=== PATIENT | female | born 1970 | race Caucasian/White ===

== ENCOUNTER 2016-12-04 09:43 | Emergency (ER) | payer BC, MEDICARE ==
[~2016-12-04] VITALS: Ht 157.4 cm; Wt 122.5 kg
[2016-12-04 09:43] VITALS: BP 146/72
[~2016-12-04 09:43] MED LIST: ADVAIR 500/501 E1 INH; AMBIEN10 MG PO; AMOXICILLIN500 MG PO; AMOXIL250 MG/5 M PO; ANTIVERT25 MG PO; ATARAX25 MG PO; ATIVAN0.5 MG PO; ATIVAN1 MG PO; AUGMENTIN 875875 MG PO; BACTRIM DS 8001 TA1 PO; BACTROBAN OINT0.9 GM NAS; BACTROBAN OINT0.9 GM PO; BACTROBAN2% TP; BREO ELLIPTA 21 EACH IH; BROMALINE DM PO; Bactroban Oint22 GM T; CALCIUM 600600 M2 PO; CALTRATE 600600 MG PO; CARAFATE1 GM PO; CARDIZEM CD180 MG PO; CEFADROXIL500 M1 PO; CEFTIN250 MG PO; CEFTRIAXONE1 GM IJ; CHLORASEPTIC PO; CIPRO250 MG PO; CIPRO500 MG PO; CLARITIN10 MG PO; CLINDAMYCIN HC300 MG PO; COMBIGAN 0.2%-0.5 ML OP; CORDROL20 MG PO; COUMADIN4 MG PO; COUMADIN5 M1 PO; COUMADIN7.5 M1 PO; Coumadin3 MG PO; DALI500T PO; DALIRESP500 MC1 PO; DARVOCET N 1001 TAB PO; DELTASONE1 MG PO; DELTASONE20 MG PO; DELTASONE5 MG PO; DELTASONE50 MG PO; DIFLUCAN150 MG PO; DIGITEK0.25 MG PO; DILTIAZEM 24HR120 MG PO; DILTIAZEM CD240 MG PO; DILTIAZEM ER120 MG PO; DOXYCYCLINE HY100 M5 PO; DOXYCYCLINE MO100 MG PO; DOXYCYCLINE100 MG PO; DOXYCYCLINE40 MG PO; DUONEB 3 MG/3 ML3 M1; DUONEB 3 MG/3 ML3 M1 NEB; DUREZOL 5 ML5 ML OP; Duoneb 3ML 3 MG/3 ML INH; FIORICET 325 MG1 TAB PO; Fioricet 325 MG1 TAB PO; GABAPENTIN300 MG PO; HUMULIN 70/30 703 M1 SC; HYDROCODONE BIT1 T11 PO; HYOMAX-SL0.125 MG PO; IBU-8800 MG PO; INVOKANA100 M1 PO; JANUVIA100 MG PO; JANUVIA50 MG PO; K-DUR 2020 MEQ PO; K-Dur 20MEQ20 MEQ PO; KEFLEX500 MG PO; KEFZOL1 GM IM; LANTUS100 U/ML SC; LASIX40 MG PO; LATANOPROST2.5 ML OP; LEVAQUIN LEVA-750 MG PO; LEVAQUIN500 M1 PO; LEVAQUIN500 M2 PO; LEVAQUIN750 M1 PO; LEVAQUIN750 MG PO; LEVEMIR10 ML SC; LEVEMIR100 U/ML SC; LEVOFLOXACIN500 MG PO; LISINOPRIL10 MG PO; LISINOPRIL40 MG PO; LUMIGAN 2.5 ML2.5 ML OPH; LYRICA100 M1 PO; MELATONIN5 M2 PO; Mycostatin Powd15 GM; NEURONTIN300 MG PO; NEURONTIN600 MG PO; NOVOLIN R100 U/ML IJ; NOVOLIN R100 U/ML SC; OXYGEN INH; PAROXETINE HCL10 MG PO; PAXIL30 M1 PO; PAXIL30 M2 PO; PEPCID40 MG PO; PERCOCET 325 MG1 TA2 PO; PERCOCET 325 MG1 TA3 PO; PERCOCET 325 MG1 TA5 PO; PERCOCET 325 MG1 TA6 PO; PERCOCET 325 MG1 TA7 PO; PERCOGESIC EXTR1 TAB PO; PHENERGAN W/ DE30 ML PO; PHENERGAN W/DM120 ML PO; PRANDIN1 MG PO; PREDNICOT20 MG PO; PREDNISONE10 M1 PO; PREDNISONE10 MG PO; PREDNISONE20 M1 PO; PRILOSEC20 M1 PO; PROAIR HFA0.09 MG/AC; PROAIR HFA0.09 MG/AC INH; PROAIR HFA8.5 GM INH; PROTONIX40 MG PO; Percocet 325 MG1 TAB PO; Phenergan25 MG PO; SINGULAIR10 MG PO; SPIRIVA 5 CAPS18 MCG INH; SPIRIVA18 MCG PO; TOBREX OPHTH S2.5 ML OPH; VANCO 1 GR1 GM/250 M IV; VANCO 1.51.5 GM/250 IV; VANCO IV; VANCOCIN H250 MG/5 M PO; VENTOLIN H0.09 MG/AC INH; VENTOLIN0.09 MG/AC INH; VIBRAMYCIN100 MG PO; VICODIN 5/500 505 MG PO; VICODIN ES 7501 TA1 PO; XANAX0.25 MG PO; XANAX0.5 MG PO; XOPENEX1.25 MG/3 IH; ZANTAC 150150 MG PO; ZITHROMAX Z PA250 MG PO; ZITHROMAX250 MG PO; ZITHROMAX500 MG PO; ZOFRAN ODT4 MG SL; ZOFRAN8 M1 PO; ZYVOX600 MG PO
[2016-12-04 10:26] LABS: BASO % 0.2 % (0.0-1.0); EOS % 0.2 % (1.0-4.0); HEMATOCRIT 34.7 % (37.0-47.0); HEMOGLOBIN 10.3 g/dl (12.0-16.0); IG # 0.1 10*3/uL (0.0-0.1); LYMPH # 1.6 10*3/uL (1.3-4.4); LYMPH % 19.1 % (27.0-41.0); MEAN CELL VOLUME 91.6 fl (81.0-99.0); MEAN CORPUSCULAR HGB 27.2 pg (27.0-31.0); MEAN CORPUSCULAR HGB CONC 29.7 g/dl (33.0-37.0); MEAN PLATELET VOLUME 9.8 fl (9.6-12.3); MONO # 0.3 10*3/uL (0.1-1.0); MONO % 3.8 % (3.0-9.0); NEUT # 6.4 10*3/uL (2.3-7.9); NEUT % 75.3 % (47.0-73.0); PLATELET COUNT AUTOMATED 311 10*3/uL (130-400); RED BLOOD COUNT 3.79 10*6/uL (4.10-5.10); RED CELL DISTRI WIDTH 14.8 % (0-14.5); WHITE BLOOD COUNT 8.5 10*3/uL (4.8-10.8)
[2016-12-04 10:39] LABS: ALBUMIN 3.2 gm/dl (3.1-4.5); ALKALINE PHOSPHATASE 72 U/L (45-117); BILIRUBIN, TOTAL 0.2 mg/dl (0.2-1.0); BUN 21 mg/dl (7-24); CARBON DIOXIDE 32 mmol/L (21-32); CHLORIDE 102 mmol/L (98-107); EST GLOM FILT AFRICAN AMERICAN > 60 ml/min; GLUCOSE 165 mg/dL (65-99); POTASSIUM 4.3 mmol/L (3.5-5.1); SGOT/AST 8 IU/L (3-35); SGPT/ALT 15 U/L (12-78); SODIUM 143 mmol/L (136-145); TOTAL PROTEIN 6.9 gm/dL (6.4-8.2)
== END 2016-12-04 13:46 | disposition other institution (70) ==
LOC: ED 09:43
PROVIDERS: Registered Nurse
DX: S20.212A Contusion of left front wall of thorax, initial encounter (principal); F32.9 Major depressive disorder, single episode, unspecified; M19.90 Unspecified osteoarthritis, unspecified site; E11.9 Type 2 diabetes mellitus without complications; J45.909 Unspecified asthma, uncomplicated; N17.9 Acute kidney failure, unspecified; Z88.1 Allergy status to other antibiotic agents; Z88.2 Allergy status to sulfonamides; Z88.8 Allergy status to other drugs, medicaments and biological substances; Z79.899 Other long term (current) drug therapy; W18.30XA Fall on same level, unspecified, initial encounter; Y93.89 Activity, other specified; Y92.89 Other specified places as the place of occurrence of the external cause; Y99.9 Unspecified external cause status

== ENCOUNTER 2017-02-04 19:21 | Inpatient (IN) | payer BC, MEDICARE ==
[~2017-02-04] VITALS: Ht 157.5 cm; Wt 115.3 kg
--- NOTE | ~2017-02-04 | PR ---
[place], [place] PROGRESS NOTE NAME: TOD HERNANDEZ UNIT #: [id number] ROOM: 523 DOCTOR: RONI BURTON MD,JESSICA BIRTHDATE: [birth year] DOS: 02/14/2017 SUBJECTIVE: The patient has been noted comfortable at this time without any distress. There were no symptoms of cough, sputum expectoration, chest pain described. There were symptoms of abdominal pain. OBJECTIVE: VITAL SIGNS: The patient which has been recorded showed the temperature of the patient noted as normal, respiratory rate 20, heart rate 70, blood pressure 135/67. HEENT: No acute change. NECK: Supple. CARDIOVASCULAR: S1, S2 audible. LUNGS: Noted without any wheeze or crackles. ABDOMEN: Soft, nontender, and obese. EXTREMITIES: No edema. IMPRESSION: 1. Resolving small pleural fluid. The patient at this time associated with acute bacterial pneumonia. 2. Stable chronic hypoxic respiratory failure. 3. Obstructive sleep apnea disorder. 4. Type 2 diabetes mellitus. 5. History of bronchial asthma with steroid dependency. PLAN OF TREATMENT: No changes from the pulmonary standpoint, the patient could be considered for home discharge on oral medications if desired by the primary care attending from the pulmonary standpoint. In the meantime, continue other previous therapy, plan of management. Upon discharge, the patient recommended for outpatient followup in 2 weeks in the office. JESSICA TAMAYO MD CM:PNTRANS [phone] JESSICA BURTON MD 02/14/17 1130 interface
--- NOTE | ~2017-02-04 | PR ---
[place], [place] PROGRESS NOTE NAME: TOD HERNANDEZ UNIT #: [id number] ROOM: 523 DOCTOR: RONI BURTON MD,JESSICA BIRTHDATE: [birth year] DOS: 02/13/2017 SUBJECTIVE: She has been noted comfortable with signs of chest pain without any acute shortness of breath. There were symptoms of coughing, chest pain. Abdominal pain was noted. OBJECTIVE: VITAL SIGNS: Show normal temperature, respiratory rate 20, heart rate 75, blood pressure 95/50-111/56. Pulse oxygen saturation noted on 3 liters canula 96% saturation. HEENT: Shows no acute change. NECK: Supple. CARDIOVASCULAR: S1, S2 audible. LUNGS: Without any wheezing or crackles at the present time. Breaths are noted, mildly decreased bilaterally. ABDOMEN: Soft, nontender. LABORATORY DATA: CBC shows WBC count 10.3, hemoglobin 9.8, hematocrit 33, platelet count of 332. The patient has a chest x-ray repeated today which shows improvement in the pleural fluid and aeration of the right lower lobe. The pleural fluid noted very small. IMPRESSION: 1. Resolving acute pneumonia and associated pleural fluid. Current medical management. 2. Hypercapnic and hypoxic respiratory failure. 3. Type 2 diabetes mellitus. PLAN OF TREATMENT: Possible discharge in the morning. Continue the previous treatment, plan of management, usual care. JESSICA TAMAYO MD CM:PNTRANS [phone] JESSICA BURTON MD 02/13/17 1340 interface
--- NOTE | ~2017-02-04 | PR ---
[place], [place] PROGRESS NOTE NAME: TOD HERNANDEZ UNIT #: [id number] ROOM: 523 DOCTOR: RONI BURTON MD,JESSICA BIRTHDATE: [birth year] DOS: 02/10/2017 SUBJECTIVE: She has been comfortably resting free of any pain. Shortness of breath has been improving for the patient progressively. Denies symptoms of chest pain or any abdominal pain. OBJECTIVE: VITAL SIGNS: For the patient which has been recorded showed the temperature of the patient noted as normal. Respiratory rate of the patient recorded as 20, heart rate 66, blood pressure 130/78. Oxygen saturation of the patient recorded on current supplementation of oxygen 3 liters is 93% saturation. HEENT: Examination shows head was atraumatic. Eyes, no icterus. NECK: Supple. CARDIOVASCULAR: S1, S2 audible. LUNGS: The patient noted without any wheeze or crackles at this time. ABDOMEN: Soft, obese, nontender. LABORATORY DATA: CBC of the patient this morning shows hemoglobin 9.1, hematocrit 31.3. CBC was normal. IMPRESSION: 1. The patient was noted with acute pneumonia in the right lower lobe, treated for gram-positive organism. The patient at this time appeared to be responding to treatment effectively. 2. The patient with chronic hypoxic respiratory failure. 3. Obstructive sleep apnea disorder. PLAN OF TREATMENT: Continue current antibiotics, bronchodilators and management of the uncontrolled diabetes mellitus. Other supportive therapy, plan of management and care. Usual treatment. Further treatment changes will be done based on the progression of the illness. JESSICA TAMAYO MD CM:PNTRANS [phone] JESSICA BURTON MD 02/11/17 0230 interface
--- NOTE | ~2017-02-04 | PR ---
[place], [place] PROGRESS NOTE NAME: TOD HERNANDEZ UNIT #: [id number] ROOM: 523 DOCTOR: JESSICA GOLDBERG MD BIRTHDATE: [birth year] DOS: 02/09/2017 SUBJECTIVE: She has been comfortably resting on the bed, using the BiPAP at this time. The chest pain continued, resolved. Shortness of breath is also improving. The cough has been noted mild for this patient as well. There were no symptoms of abdominal pain. OBJECTIVE: VITAL SIGNS: For the patient, which has been recorded showed the temperature noted as normal, respiratory rate 20, heart rate 75, blood pressure 113/55. Pulse oxygen saturation of the patient recorded on room air as 95% saturation. HEENT: Showed no new change. NECK: Supple. CARDIOVASCULAR: S1, S2 audible. LUNGS: The patient was noted without any wheezing or crackles. ABDOMEN: Noted with chronic obesity. EXTREMITIES: Shows chronic obesity as well. LABORATORY DATA: The chest x-ray, PA and lateral view that was done yesterday, shows resolving pulmonary infiltration with a small right pleural fluid was noted. IMPRESSION: 1. The patient with resolving acute bacterial pneumonia with current medical treatment at this time. 2. Stable bronchial asthma of the patient, uncomplicated, severe, persistent. 3. History of obstructive sleep apnea disorder as well. 4. History of morbid obesity. 5. Type 2 diabetes mellitus. PLAN OF TREATMENT: Continue the current medical management with the patient including the antibiotics. Possible discharge home consideration over the weekend for the patient based on the further clinical improvement in the respiratory status. Usual care, other supportive plan of management. [place], [place] PROGRESS NOTE NAME: TOD HERNANDEZ UNIT #: [id number] ROOM: 523 DOCTOR: JESSICA GOLDBERG MD BIRTHDATE: [birth year] JESSICA TAMAYO MD CM:PNTRANS [phone] JESSICA BURTON MD 02/10/17 0023 interface
--- NOTE | ~2017-02-04 | PR ---
[place], [place] PROGRESS NOTE NAME: TOD HERNANDEZ UNIT #: [id number] ROOM: 523 DOCTOR: FRANCO CAPUTO MD BIRTHDATE: [birth year] DOS: 02/07/2017 SUBJECTIVE: The patient is not having any complaints, but she feels that she is unable to take a deep breath. OBJECTIVE: VITAL SIGNS: Graphic trend shows a pressure of ____/56, pulse of 85, respirations 16, temperature 97.7. LUNGS: Diminished breath sounds. No wheezes, rales or rhonchi heard today. HEART: Regular. ABDOMEN: Obese. EXTREMITIES: Without any edema. LABORATORY DATA: White cell count is 11.3, hemoglobin 9.5, hematocrit 31.2, platelets 234. BMP: Glucose 102, BUN 33, creatinine 3.02, sodium 139, potassium 4.5, chloride 103, bicarbonate 26. Troponin was 0.68 yesterday, has come down to ____. ASSESSMENT AND PLAN: 1. Acute kidney injury, possibly ATN from contrast dye that she received for a CTA admission. IV fluids will be started. Nephrotoxic meds to be discontinued. Ultrasound of the kidneys has been ordered and a consultation with Dr. Thacker was obtained. 2. High-grade fever with sepsis. Lactic acid seems to have resolved. Blood cultures so far are not available yet, showing preliminary no bacterial growth. Urine culture is pending. The patient is on IV vancomycin, which has been discontinued because of the rising creatinine and Cipro dosage will be readjusted. 3. Type 2 diabetes mellitus, insulin dependent. Blood sugars not too bad, it is 122 this morning. 4. Troponin elevation with complaints of right-sided chest pain. It is most likely from the acute kidney injury. I reassured the patient. Dr. Vera is already seeing the patient. Echocardiogram showed no pathology. 5. Possible bibasilar atelectasis, possible pneumonia, on IV antibiotics, which are being continued. [place], [place] PROGRESS NOTE NAME: TOD HERNANDEZ UNIT #: [id number] ROOM: 523 DOCTOR: FRANCO CAPUTO MD BIRTHDATE: [birth year] FRANCO CAPUTO MD CM:PNKESHA 1 [phone] FRANCO CAPUTO MD 02/07/171958 interface
--- NOTE | ~2017-02-04 | WRIGHTHP ---
[place], [place] PATIENT HISTORY AND PHYSICAL EXAM NAME: TOD HERNANDEZ [facility] #: [id number] UNIT #: [id number] ROOM: 523 DOCTOR: FRANCO CAPUTO MD BIRTHDATE: [birth year] DOS: 02/05/2017 HISTORY OF PRESENT ILLNESS: The patient is 46 years old, seen in the Emergency Room. She was woken up during the night with complaints of severe pain in the right side of the chest. Pain is mostly when she takes a deep breath, also when she moves around in bed. She had a hard time even getting up out of bed to be examined. She denied having any left-sided chest pain or radiation of pain in the neck or jaw. She denies having any fever or chills, abdominal pain, nausea, but continued to have a lot of chronic pain all over her body. PAST MEDICAL HISTORY: Significant for: 1. Last hospitalization in 11/2012 with osteomyelitis. She was at [facility] for close to a month. She received IV vancomycin and the wound has completely healed and vancomycin was discontinued. 2. 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 3. Type 2 diabetes mellitus, insulin-dependent, poorly controlled. 4. Chronic pain. 5. Morbid obesity. 6. Adult failure to thrive. 7. Pancreatic cyst. 8. Generalized anxiety disorder. 9. Chronic osteomyelitis of the toe, status post amputation of the first toe of the left foot. MEDICATIONS: She is on insulin pump, Ventolin 2 puffs q.6h., oxygen 2 liters, breathing treatments, Latanoprost eyedrops, Xanax 0.5 b.i.d., Fioricet 1 tablet t.i.d., calcium carbonate 600 b.i.d., Diltiazem 240 daily, Pepcid 40 daily, lisinopril 40 daily, Singulair 10 daily, Percocet 7.5 q. 6, Paxil 30 daily, prednisone 30 daily, Lyrica 100 b.i.d., Prandin 1 mg t.i.d., Daliresp 500 mcg daily. SOCIAL HISTORY: Nonsmoker, does not use any alcohol. PHYSICAL EXAMINATION: GENERAL: The patient was in quite a lot of pain and was very difficult even get her up to be examined on the gurney in the ER. VITAL SIGNS: Blood pressure is 145/92, pulse of 100, respirations 18, afebrile. HEENT: Within normal limits. LUNGS: Diminished breath sounds. Fairly clear. HEART: Regular. ABDOMEN: Obese, multiple tender points all over back. EXTREMITIES: Without any edema, previously seen wound on the left leg. Left foot is completely healed. LABORATORY DATA: At the time of admission, WBC count is 15.2, hemoglobin 11.6, hematocrit 39.3, platelets 313. Lactic acid 3.1. Chest x-ray unremarkable. Blood gas 7.4, pCO2 of 43, pO2 154. BMP: Glucose 59, BUN 11, creatinine 1.07, sodium 144, potassium 3.4, chloride 105, bicarbonate 29. CTA of the chest shows no pathology except some minimal, no evidence of any PE, basilar atelectasis. [place], [place] PATIENT HISTORY AND PHYSICAL EXAM NAME: TOD HERNANDEZ UNIT #: [id number] ROOM: 523 DOCTOR: FRANCO CAPUTO MD BIRTHDATE: [birth year] ASSESSMENT AND PLAN: A 46-year-old with: 1. Right-sided chest pain, which appears to be pleuritic in nature, could be from a small underlying pneumonia versus pleurisy. Dr. Juarez will be consulted. The patient will have a rule out CT protocol ordered. She has significant risk factors for underlying heart disease. Echocardiogram and a consultation with Dr. Vera also obtained. 2. End-stage chronic obstructive pulmonary disease, oxygen dependent without any evidence of exacerbation. She does not have any bronchospasm. We will discontinue Singulair and continue the Daliresp. She is on chronic prednisone, which is also continued. 3. Type 2 diabetes mellitus, insulin-dependent. Blood sugars to be checked and covered. FRANCO CAPUTO MD CM:HISPHYS:PATIENT HISTORY AND PHYSICAL EXAMINATION 07 FRANCO CAPUTO MD 02/06/17 0710 interface
--- NOTE | ~2017-02-04 | PR ---
[place], [place] PROGRESS NOTE NAME: TOD HERNANDEZ UNIT #: [id number] ROOM: 523 DOCTOR: MARYCARMEN LOPEZ MD BIRTHDATE: [birth year] DOS: 02/08/2017 GENERAL APPEARANCE: The patient is alert and oriented x 3, in no visible distress. VITAL SIGNS: Blood pressure 120/63; heart rate of 82 beats per minute, beating normally; afebrile. HEENT AND NECK: Exam within normal limits. CARDIOVASCULAR SYSTEM: Heart rate is regular in rate and rhythm. S1 and S2 normally audible. LUNGS: Decreased breath sounds on lung auscultation. ABDOMEN: Obesity. Soft, nontender. No obvious organomegaly. Bowel sounds are present. EXTREMITIES: Without significant cyanosis or edema. IMPRESSION: 1. The patient with right-sided pleuritic chest pains, resolved with treatment of infection and pneumonia. 2. The patient seen by Cardiology. No further workup recommended. 3. Morbid obesity. 4. Advanced COPD with chronic respiratory failure and oxygen dependence. 5. Diabetes mellitus. Blood sugars being monitored. 6. Acute kidney disease. BUN and creatinine at 32 and 2.1. 7. High-grade fever and sepsis apparently related to pneumonia as a result of treatment of antibiotics. MARYCARMEN LOPEZ MD CM:PNTRANS [phone] MARYCARMEN LOPEZ MD 02/09/17 0152 interface
--- NOTE | ~2017-02-04 | PR ---
[place], [place] PROGRESS NOTE NAME: TOD HERNANDEZ UNIT #: [id number] ROOM: 523 DOCTOR: MARYCARMEN LOPEZ MD BIRTHDATE: [birth year] DOS: 02/14/2017 SUBJECTIVE: The patient says her breathing is slightly improved today. OBJECTIVE: VITAL SIGNS: Blood pressure 123/60, heart rate of 84 beats per minute, breathing 20 times a minute, pulse ox 93% with oxygen, afebrile. GENERAL APPEARANCE: Morbid obesity. The patient is wearing oxygen. HEENT AND NECK: Exam within normal limits. CARDIOVASCULAR SYSTEM: Heart rate is regular in rate and rhythm. S1 and S2 normally audible. LUNGS: Decreased breath sounds all over. ABDOMEN: Soft, nontender. No obvious organomegaly. Bowel sounds are present. EXTREMITIES: Without significant cyanosis or edema. IMPRESSION: 1. The patient with resolving pleural effusion associated with acute bacterial pneumonia on the right side, being followed by Dr. Juarez. The patient is breathing somewhat better today, although for the last 2-3 days, her breathing was getting worse despite of treatment. 2. Exacerbation of chronic obstructive pulmonary disease, improving with treatment, acute over chronic respiratory failure. 3. Type 2 diabetes mellitus. The patient on insulin pump. Blood sugars are being monitored and treated. 4. Morbid obesity, chronic respiratory failure, chronic shortness of breath and adult failure to thrive. MARYCARMEN LOPEZ MD CM:PNTRANS [phone] MARYCARMEN LOPEZ MD 02/15/17 0112 interface
--- NOTE | ~2017-02-04 | CON ---
[place], [place] REPORT OF CONSULTATION NAME: TOD HERNANDEZ UNIT #: [id number] ROOM: 523 DOCTOR: HORACE KAM MD BIRTHDATE: [birth year] DOS: 02/05/2017 REASON FOR CONSULTATION: Chest pain and tachycardia. HISTORY OF PRESENT ILLNESS: The patient is a 46-year-old patient came to the Emergency Room with right-sided chest pain. She is somewhat poor historian. She complained of intermittent right-sided chest pain for the past 2 days. She described this pain as sharp pain in the right mid axillary area towards the lower right chest wall. It is more or less constant pain. No radiation, no associated symptoms. She also is complaining of some shortness of breath and also fever at home, but however, she denies any midsternal chest pain, palpitations or dizziness. No syncope. She did have some nausea at home. No orthopnea. No visual symptoms. No hematuria or dysuria. No constipation. Some musculoskeletal symptoms because of her atypical chest pain. REVIEW OF SYSTEMS: Review of the 8 systems negative except as mentioned above. PAST MEDICAL HISTORY: 1. Asthma. 2. COPD. 3. Diabetes. 4. Hypertension. 5. Depression. 6. Morbid obesity. 7. Chronic back pain. PAST SURGICAL HISTORY: History of amputation of the toes. SOCIAL HISTORY: The patient does not smoke. Consumes alcohol occasionally. Does not use illicit drugs. FAMILY HISTORY: Mother from pancreatic cancer. ALLERGIES: The patient is allergic to metoclopramide, Bactrim. HOME MEDICATIONS: Reviewed. PHYSICAL EXAMINATION: VITAL SIGNS: Blood pressure 162/78, pulse 112, respiratory rate of 16, temperature 102 degrees Fahrenheit. GENERAL: Alert, comfortable, in no acute distress. HEENT: Pupils are round and equal. No jaundice. Tongue was moist. NECK: Supple. No distended neck veins. No carotid bruit. CHEST: Mild tenderness in the right side of the chest towards the mid axillary area. The patient had a port in the right upper chest wall. LUNGS: A few scattered rhonchi. HEART: Regular rhythm. No S3. ABDOMEN: Morbidly obese, nontender. Bowel sounds normal. EXTREMITIES: Showed trace to 1+ edema. Distal pulses are palpable. SKIN: Warm and dry. No cyanosis, no clubbing. [place], [place] REPORT OF CONSULTATION NAME: TOD HERNANDEZ UNIT #: [id number] ROOM: 523 DOCTOR: NEGIN FREDERICK,HORACE BIRTHDATE: [birth year] NEUROLOGIC: The patient is alert, oriented. No focal neurologic deficit. RECTAL: Deferred. GENITOURINARY: Deferred. REVIEW OF THE DIAGNOSTIC TESTS: EKG shows sinus tachycardia. CBC showed white count 15,000, platelets are 313,000. Lactic acid 1.6. Rest of the labs are pending. IMPRESSION: 1. Chest pain, atypical. 2. Sinus tachycardia due to febrile illness and positive infection. 3. Hypertension. 4. Diabetes, type 2. 5. Fever. 6. Morbid obesity. 7. Chronic obstructive pulmonary disease. RECOMMENDATIONS: 1. Her chest pain appears to be stable. No further cardiac testing. 2. Add low-dose beta blockers for hypertension and sinus tachycardia. 3. Further cardiac testing will be based on her hospital course and further symptoms. 4. There is no family at bedside at the time of examination. HORACE KAM MD CM:CONSTR:REPORT OF CONSULTATION 2305 02/06/17 1116 interface
--- NOTE | ~2017-02-04 | CON ---
[place], [place] REPORT OF CONSULTATION NAME: TOD HERNANDEZ UNIT #: [id number] ROOM: 523 DOCTOR: JESSICA GOLDBERG MD BIRTHDATE: [birth year] DOS: 02/05/2017 REASON FOR CONSULTATION: Assess the patient for current acute ongoing respiratory symptom. HISTORY OF PRESENT ILLNESS: This is a 46-year-old white female who has been known to me from the past with history of steroid dependence, bronchial asthma, chronic hypoxic respiratory failure, and obstructive sleep apnea disorder. She was brought to the hospital by the wheelchair, by the family members. The patient reported symptoms severe pain, which was described in the right side of the chest which started 24 hours prior to admission to the hospital. The symptoms have been noted progressive worsening. Pain was described as quite severe. The patient without radiation, associated symptoms of shortness of breath. The patient was noted with symptoms of some cough without any sputum expectoration. Denies symptoms of wheezing. She has been assessed in the Emergency Room, and CT of the chest for patient was done as well to rule out pulmonary embolism. At this time, she was still noted with some lethargy, sleepiness, but able to answer the questions when she has been asked questions. REVIEW OF SYSTEMS: CONSTITUTIONAL: Fatigue and tiredness noted without symptoms of fever or chills. HEENT: Denies burning, redness, or tenderness. Denies sore throat, hoarseness, or otalgia. Postnasal drainage. CARDIOVASCULAR: Denies anginal pain, edema of the lower extremities or palpitations. GASTROINTESTINAL: Denies dysphagia, nausea, vomiting, diarrhea, abdominal pain, hematemesis, melena. GENITOURINARY: No dysuria, suprapubic pain, hematuria. MUSCULOSKELETAL: Denies acute joint pain, redness, or tenderness. SKIN: Denies lesions or rashes. CENTRAL NERVOUS SYSTEM: No dizziness, headache, diplopia, syncopal episodes. Remaining systems were reviewed and they were noted all negative. PAST MEDICAL HISTORY: 1. Noted with several hospitalizations for the management of bronchial asthma and other etiologies. 2. History of uncomplicated severe persistent bronchial asthma. 3. Insulin requiring type 2 diabetes mellitus. 4. History of chronic severe obesity. 5. Obstructive sleep apnea disorder as well, which has been recently diagnosed and treated with the CPAP/BiPAP. 6. History of gastroesophageal reflux. 7. Essential hypertension. 8. History of chronic intermittent sinus tachycardia. 9. Anxiety disorder. 10. Ovarian cyst. 11. History of fracture of the wrist. [place], [place] REPORT OF CONSULTATION NAME: TOD HERNANDEZ UNIT #: [id number] ROOM: 523 DOCTOR: RONI BURTON MD,JESSICA BIRTHDATE: [birth year] PAST SURGICAL HISTORY: 1. ORIF of the metatarsal shaft on the right side. 2. T and A. 3. Therapeutic bronchoscopies. 4. Bilateral cataract extraction with lens implantation. 5. D and C. 6. Right wrist surgery as well. 7. Incision and drainage of the right foot and the metatarsal bone. SOCIAL HISTORY: The patient is . She was noted lifetime nonsmoker. Denies any alcohol use, illicit drug use. FAMILY HISTORY: Noted noncontributory. MEDICATIONS: Current administered medication which has been ordered for this patient by Dr. Indira Gonzalez on admission, noted use of Daliresp, prednisone 30 mg daily, potassium chloride, Paxil, lisinopril, famotidine, Cardizem-CD, Prandin, Levaquin, Xanax and other p.r.n. medications administration. DRUG ALLERGIES HISTORY: NOTED ALLERGY: 1. BACTRIM. 2. REGULAR. PHYSICAL EXAMINATION: GENERAL: This is a 46-year-old white female who has been currently noted to be somewhat sleepy and lethargic. VITAL SIGNS: The patient's height was recorded by the nursing staff at the time of admission, height of 5 feet 2 inches, weight of 245 pounds, BMI 44.9. Temperature 102 degrees Fahrenheit for the patient noted. The patient's temperature noted normal, respiratory rate of 18-24, heart rate of 109-114, blood pressure 159/52-140/58. Pulse oxygen saturation of the patient noted on 3 liters nasal canula 97% saturation. HEENT: Chronic obesity. Head was atraumatic. Eyes nonicterus. NECK: Supple. CARDIOVASCULAR: S1, S2 audible. LUNGS: For the patient noted with decreased breath sounds in the lungs without any wheezing. There were no crackles heard. ABDOMEN: Soft, obese, nontender. EXTREMITIES: Shows chronic obesity. LABORATORY DATA: CBC, the patient's WBC count 15,000, hemoglobin 11.6, hematocrit 39.3, platelet count was normal. Lactic acid 3.1 noted yesterday on admission in the evening. PT/INR for the patient was noted as normal on 02/04. The arterial blood gas for patient 64, pH of 7.42, pCO2 of 43, pO2 of 154. The BMP of patient which was done rather yesterday on 02/04/2017, BUN of 11, creatinine 1.07, glucose of 59. ProBNP was elevated at 3620. Followup lactic acid was 1.6 later on, after intravenous fluid resuscitation, troponin noted normal yesterday. Chest x-ray of the patient that was done for this patient was noted without any visible acute pulmonary infiltration. CT of the chest, the patient does not show any pulmonary embolism. The patient noted grossly in the [place], [place] REPORT OF CONSULTATION NAME: TOD HERNANDEZ UNIT #: [id number] ROOM: 523 DOCTOR: JESSICA GOLDBERG MD BIRTHDATE: [birth year] large pulmonary arterial branches and subsegmental branches. The lung parenchyma for this patient was also reviewed for this patient with the CT scan of the chest, shows area of consolidation, infiltration noted in the medial subsegment of the right lower lobe. Small area of atelectasis, infiltration in the left lower lobe for this patient cannot be completely excluded. IMPRESSION: 1. The patient who has been currently admitted to the hospital with elevation of temperature and acute sepsis. The patient with acute bacterial pneumonia in the lower lungs. Possibility to aspiration cannot be completely excluded, acute change in mental status secondary to current pain, possibility to sepsis, other etiologies, and also rule out hypercarbia, interval development since admission. 2. History of insulin requiring type diabetes mellitus. The patient had hypoglycemia which has been already managed and corrected. 3. The patient with chronic severe obesity with obstructive sleep apnea disorder as well and acute chronic hypoxic respiratory failure, remains unchanged. PLAN OF TREATMENT: Monitor culture results of the blood for this patient. Start the patient on intravenous antibiotic for this patient as well for the medical management of gram-positive and gram-negative organisms. Previously, the patient has been isolated Staph aureus on the foot for this patient. She has been admitted in multiple places including the hospital and the nursing facility, possible colonization gram-positive, gram-negative organism to be treated effectively with the medications. Arterial blood gas for this patient after review for the patient if necessary start the patient on BiPAP for this patient hospital setting for further medical management. Monitor respiratory status closely. Usual care. Supportive therapy, plan of management and care. Obtain the sputum for Gram stain and culture as well. Thanks for allowing me to participate in the care of this patient. JESSICA TAMAYO MD CM:CONSTR:REPORT OF CONSULTATION 1243 02/06/17 0456 interface
--- NOTE | ~2017-02-04 | PR ---
[place], [place] PROGRESS NOTE NAME: TOD HERNANDEZ UNIT #: [id number] ROOM: 523 DOCTOR: MARYCARMEN LOPEZ MD BIRTHDATE: [birth year] DOS: 02/13/2017 SUBJECTIVE: The patient complaining of increasing shortness of breath. PHYSICAL EXAMINATION: VITAL SIGNS: Blood pressure 150/67, heart rate 87 beats per minute, breathing 20 times per minute, temperature 98 degrees Fahrenheit. GENERAL APPEARANCE: Morbid obesity and generalized weakness. HEENT AND NECK: Exam within normal limits. CARDIOVASCULAR SYSTEM: Heart rate is regular in rate and rhythm. S1 and S2 normally audible. LUNGS: With decreased breath sounds all over. ABDOMEN: Soft, nontender. No obvious organomegaly. Bowel sounds are present. EXTREMITIES: Without significant cyanosis or edema. IMPRESSION: 1. The patient with resolving acute pneumonia, being followed by private eye, Dr. Juarez, in the right lower lung. The patient also has some pleural effusion, which is being monitored by Dr. Juarez. 2. Right-sided pleural effusion, being followed by Dr. Juarez. 3. Chronic obstructive pulmonary disease with acute over chronic respiratory failure and exacerbation of chronic obstructive pulmonary disease, being treated. 4. Type 2 diabetes mellitus. The patient on an insulin pump. Blood sugars are being monitored and treated. 5. The patient with morbid obesity, chronic respiratory failure with increasing shortness of breath, appears to be a very good candidate for transfer to an LTAC facility for continued care. She is too sick to go to long-term facility or home, so I am putting in a consult for social media developer. MARYCARMEN LOPEZ MD CM:PNTRANS [id number] MARYCARMEN LOPEZ MD 02/14/17 0317 interface
--- NOTE | ~2017-02-04 | PR ---
[place], [place] PROGRESS NOTE NAME: TOD HERNANDEZ UNIT #: [id number] ROOM: 523 DOCTOR: RONI BURTON MD,JESSICA BIRTHDATE: [birth year] DOS: 02/11/2017 PULMONARY FOLLOWUP NOTE SUBJECTIVE: She has been noted comfortable at this time, resting on the bed. Shortness of breath, cough has been improving. The chest pain has been resolved markedly. There were no symptoms of abdominal pain. OBJECTIVE: VITAL SIGNS: For the patient which has been recorded showed the temperature noted normal, respiratory rate of 18, heart rate of 68, blood pressure 112/50. HEENT: Showed no new change. NECK: Supple. CARDIOVASCULAR: S1, S2 audible. LUNGS: Noted without any wheezing or crackles at this time. ABDOMEN: Soft, obese and nontender. IMPRESSION: Progressive resolution of the acute pneumonia for the patient with acute tracheobronchitis and respiratory failure as well. PLAN OF TREATMENT: No changes in plan of management for the patient. Continue the patient on current therapy, plan as previously in progress. Obtain a chest x-ray for this patient in the morning to reassess the progression of the pneumonia. Possibility of home discharge could be considered for the morning. JESSICA TAMAYO MD CM:PNTRANS [id number] JESSICA BURTON MD 02/12/17 0018 interface
--- NOTE | ~2017-02-04 | PR ---
[place], [place] PROGRESS NOTE NAME: TOD [facility]DEZ [id number] UNIT #: [id number] ROOM: 523 DOCTOR: YOLANDA BALL MD BIRTHDATE: [birth year] DOS: 02/08/2017 SUBJECTIVE: The patient was seen today at her bedside on 02/08/2017. Today, she is awake and alert. She states that she is feeling much better. She is breathing easily and denies any pleuritic chest pain at all. She still has back pain, but states that, that has improved. She has chronic right hip pain, which is from an old injury. She denies any significant cough or dyspnea at rest. PHYSICAL EXAMINATION: VITAL SIGNS: Pulse is 76 and regular, blood pressure is 126/59. She is afebrile. She weighs 111.3 kilograms with a body mass index of 44.9. NECK: Supple. I could not see any jugular distention. Carotids were full without bruits. LUNGS: Respirations were unlabored. Her chest has decreased breath sounds bilaterally, but no obvious wheezes or rales. HEART: Had a regular rhythm with an S4 gallop, but no S3 or murmur. There was no pericardial friction rub present. ABDOMEN: Benign. EXTREMITIES: Showed no edema. There were no palpable cords or tenderness. LABORATORY STUDIES: Today show that her hemoglobin has dropped to 8.6. Four days ago, it was 11.6. White count is stabilized at 6400 and is down from 15,000 a few days ago. Platelet count is normal at 224,000. Sodium is 137, potassium 4.1, BUN is 32, creatinine has dropped from 3.02 yesterday to 2.14 today. Troponin levels are normalizing. IMPRESSION: 1. Right-sided pleuritic chest pain, resolved with treatment of pneumonia. Most likely, this was due to the pneumonia. 2. Morbid obesity. 3. Elevated troponin in the setting of pneumonia. Most likely, this does represent a pleuropericarditis. Troponin levels are normalizing now. Please note, the patient did have a pharmacologic stress test on 10/15/2015 which was entirely normal with an ejection fraction of 69%. An echocardiogram done on this admission showed a small to moderate pericardial effusion without hemodynamic significance and normal left ventricular systolic function with normal wall motion. PLAN: No other cardiac evaluation is planned at this time. We will sign off her care, but will remain available to see her if requested by Dr. Gonzalez. We thank Dr. Gonzalez for asking our advice regarding her assessment and management. [place], [place] PROGRESS NOTE NAME: TOD HERNANDEZ UNIT #: [id number] ROOM: 523 DOCTOR: YOLANDA BALL MD BIRTHDATE: [birth year] YOLANDA BALL MD CM:PNTRANS 6 YOLANDA BALL MD 02/08/17 0951 interface
--- NOTE | ~2017-02-04 | PR ---
[place], [place] PROGRESS NOTE NAME: TOD HERNANDEZ UNIT #: [id number] ROOM: 523 DOCTOR: ROE DELANEY MD BIRTHDATE: [birth year] DOS: SUBJECTIVE: The patient is doing much better, does not have any new complaints. I appreciate all consultants input. OBJECTIVE: VITAL SIGNS: Pressure is 113/55, pulse of 75, respirations 20, temperature 97.7. LUNGS: Diminished breath sounds, but clear. HEART: Regular. ABDOMEN: Obese, soft, nontender. EXTREMITIES: Without any edema. LABORATORY DATA: Chest x-ray showed small right pleural effusion with atelectasis and consolidation of the right lung base. BMP: Glucose 281, BUN 32, creatinine 2.14, sodium 137, potassium 4.1, chloride 102, bicarbonate 22. WBC count is 6.4, hemoglobin 8.6, hematocrit 28.2, platelets 224. Assess ultrasound of the kidneys showed gallbladder polyps, but renal pathology was noted. ASSESSMENT AND PLAN: 1. Acute kidney injury, possibly acute tubular necrosis from contrast. The patient's renal function seems to have stabilized and started to show improved trend. Creatinine 2.14 versus peaking at 3.02. Nephrotoxic meds have been discontinued. Appreciate renal input. 2. Chronic obstructive pulmonary disease with chronic respiratory failure with right-sided pneumonia, on antibiotics is following. Clinically, the patient is much better. 3. Type 2 diabetes mellitus, insulin-dependent, on insulin pump. Blood sugar is not too bad. 4. Failure to thrive. Get a PT/OT evaluation. They feel that she can be discharged home in a day or 2 she can, but most likely by Sunday she should be able to go home. [place], [place] PROGRESS NOTE NAME: TOD HERNANDEZ UNIT #: [id number] ROOM: 523 DOCTOR: ROE DELANEY MD BIRTHDATE: [birth year] ROE DELANEY MD CM:PNTRANS 2 52 ROE DELANEY MD 02/09/17 6117 interface
--- NOTE | ~2017-02-04 | PR ---
[place], [place] PROGRESS NOTE NAME: TOD HERNANDEZ UNIT #: [id number] ROOM: 523 DOCTOR: RONI BURTON MD,JESSICA BIRTHDATE: [birth year] DOS: 02/15/2017 SUBJECTIVE: She has been noted comfortable at this time, resting on the bed. Denies symptoms of coughing, sputum expectoration or any chest pain. OBJECTIVE: VITAL SIGNS: For the patient, which has been recorded showed the temperature noted normal, respiratory rate 20, heart rate 81, blood pressure 150/67. The pulse oxygen saturation noted as 95% on 3 liters nasal cannula. HEENT: Examination shows no acute change. NECK: Supple. CARDIOVASCULAR: S1, S2 audible. LUNGS: Without any wheezing or crackles at the present time. ABDOMEN: Soft, nontender. IMPRESSION: The patient with resolving acute pneumonia and associated pleural fluid on the right side, responded to the current intravenous antibiotics. PLAN OF TREATMENT: Continue the patient on current medical management, plan of care. Usual care, other supportive therapy, plan of care and management. Outpatient discharge to be done after discharge. JESSICA TAMAYO MD CM:PNTRANS [phone] JESSICA BURTON MD 02/15/17 1300 interface
--- NOTE | ~2017-02-04 | PR ---
[place], [place] PROGRESS NOTE NAME: TOD HERNANDEZ UNIT #: [id number] ROOM: 523 DOCTOR: FRANCO CAPUTO MD BIRTHDATE: [birth year] DOS: SUBJECTIVE: The patient is sitting up in bed. She feels fairly good, has minimal shortness of breath, but much improved since she got admitted. OBJECTIVE: VITAL SIGNS: Graphic trend shows a pressure 163/67, pulse of 71, respirations 20, temperature 97.8. LUNGS: Diminished breath sounds, but clear. HEART: Regular. ABDOMEN: Obese. EXTREMITIES: Without any edema. IMAGING: Chest x-ray showed a moderate sized pleural effusion. LABORATORY DATA: The last labs is on the , glucose of 224, BUN 19, creatinine 1.1, GFR 52, sodium 144, potassium 4.2, chloride 109, bicarbonate 26. WBC count is 7.7, hemoglobin 9.1, hematocrit 31.3, platelets 244. ASSESSMENT AND PLAN: 1. The patient who presents with pneumonia now with right-sided pleural effusion. It could be parapneumonic, discussed with Dr. Juarez and Dr. Juarez does not feel this is a moderate effusion. He feels it is more on the small side. He does not think he needs to have it aspirated, so we will give her 1 dose of Lasix today and repeat a chest x-ray tomorrow to see whether there is any clearing. So, for right now, her discharge is being held, but the pneumonia seems to have cleared. 2. Chronic obstructive pulmonary disease, end-stage, oxygen dependent, chronic respiratory failure without any bronchospasm. 3. Type 2 diabetes mellitus with an insulin pump. Blood sugars controlled. Discussed with the patient in detail. 4. Acute kidney injury. Kidney functions have improved. We will repeat labs again tomorrow after the Lasix. [place], [place] PROGRESS NOTE NAME: TOD HERNANDEZ UNIT #: [id number] ROOM: 523 DOCTOR: FRANCO CAPUTO MD BIRTHDATE: [birth year] FRANCO CAPUTO MD CM:PNTRANS [id number] FRANCO CAPUTO MD 02/13/17 0032 interface
--- NOTE | ~2017-02-04 | PR ---
[place], [place] PROGRESS NOTE NAME: TOD HERNANDEZ UNIT #: [id number] ROOM: 523 DOCTOR: MARYCARMEN LOPEZ MD BIRTHDATE: [birth year] DOS: 02/10/2017 SUBJECTIVE: The patient is complaining of nausea and vomiting, which she thinks is secondary to her taking antibiotics for the pneumonia. OBJECTIVE: GENERAL APPEARANCE: The patient is alert and oriented x 3, in no visible distress. Morbid obesity. VITAL SIGNS: Blood pressure 112/60, heart rate of 74 beats per minute, breathing 18 times per minute, temperature 98 degrees Fahrenheit. HEENT AND NECK: Exam within normal limits. CARDIOVASCULAR SYSTEM: Heart rate is regular in rate and rhythm. S1 and S2 normally audible. LUNGS: Clear to auscultation. ABDOMEN: Soft, nontender. No obvious organomegaly. Bowel sounds are present. EXTREMITIES: Without significant cyanosis or edema. IMPRESSION: 1. The patient with resolving acute bacterial pneumonia with right-sided pleuritic chest pains and right lower lung pneumonia, being treated. 2. Morbid obesity. The patient is working with dietary. 3. Advanced chronic obstructive pulmonary disease with chronic respiratory failure and oxygen dependence. 4. Acute tubular necrosis with BUN and creatinine and kidney failure resolved with hydration with normal saline. BUN and creatinine is normal now. Sepsis, fever and pneumonia, resolving with antibiotics. 5. Adult failure to thrive and generalized weakness. The patient working with physical therapy and occupational therapy. 6. Type 2 diabetes mellitus. Blood sugars being monitored and treated. MARYCARMEN LOPEZ MD CM:PNTRANS [phone] MARYCARMEN LOPEZ MD 02/11/17 0558 interface
--- NOTE | ~2017-02-04 | PR ---
[place], [place] PROGRESS NOTE NAME: TOD HERNANDEZ UNIT #: [id number] ROOM: 523 DOCTOR: OMID SHETH MD BIRTHDATE: [birth year] DOS: 02/10/2017 SUBJECTIVE: The patient was seen and examined. She is awake and alert, in no acute distress. She appears very comfortable. She states her urine production is picking up. She denies nausea, vomiting, fevers or chills. PHYSICAL EXAMINATION: VITAL SIGNS: Temperature is 97.4, pulse 74, respirations 18, blood pressure 112/60. HEENT: Shows no JVD. LUNGS: Diminished breath sounds. No wheeze. HEART: Normal S1, S2. No rub, thrill or gallop. ABDOMEN: Soft, nontender. There is no organomegaly or rigidity. There is no rebound or guarding. There is no CVA tenderness. EXTREMITIES: Had no edema. There was no lower extremity lymphadenopathy. SKIN: Showed no rash. LABORATORY DATA: Reviewed. Hemoglobin 9.1, white count is 7.7, platelets of 244. BUN 19, creatinine 1.1, sodium 144, potassium 4.2, CO2 of 26, calcium of 8.2. IMPRESSION: 1. Acute kidney injury, which seems to have resolved. The patient's creatinine essentially is normal. Electrolytes are acceptable. 2. Diabetes. Continue insulin. 3. Anemia. Transfuse as needed. 4. Hypertension. Her blood pressure appears to be stable presently. As noted by Dr. Thacker, lisinopril can be resumed as an outpatient when her blood pressure starts to rise. 5. Pneumonia. Continue antibiotics. Nothing more to add at this point from a renal standpoint. We will sign off. Please call if needed again. OMID SHETH MD CM:PNTRANS [id number] OMID SHETH MD 02/11/17 0943 interface
--- NOTE | ~2017-02-04 | PR ---
[place], [place] PROGRESS NOTE NAME: [id number] UNIT #: [id number] ROOM: 523 DOCTOR: YOLANDA BALL MD BIRTHDATE: [birth year] DOS: 02/06/2017 SUBJECTIVE: The patient was seen at her bedside today with family at attendance, 02/06/2017. She states that she is feeling better. She no longer has severe pleuritic chest pain, although she does have pain in her right side when she takes a deep breath. She denies fevers or chills and has not been febrile since early this morning. The patient did have a CAT scan of the chest, which was somewhat limited, but did not show any large pulmonary emboli. She denies any recent swelling in her legs. PHYSICAL EXAMINATION: VITAL SIGNS: On exam today, her pulse is 80 and regular, blood pressure is 95/53. She is afebrile. NECK: Supple. She has no jugular distention. Carotids are full. LUNGS: Respirations are unlabored. Her chest is clear to auscultation and percussion. She has no presacral edema. I did not hear any wheezes or rales and there was no pleural rub present. HEART: Has a regular rhythm with an S4 gallop, but no S3 or murmur. No rub is present in the precordium. ABDOMEN: Obese, but otherwise benign. EXTREMITIES: Showed no edema. There was no calf tenderness or cords and no Homans sign. LABORATORY DATA: Review of her labs does show that her troponin has risen. On admission, it was less than 0.015; however, repeat this morning showed that it was 0.689. Her last white count on 02/04/2017 was 15,000. Renal functions are normal with a BUN of 11 and creatinine of 1.07. IMPRESSION: 1. Pleuritic chest pain. Thus far, it appears that this is due to a pulmonary infection. It is improving with antibiotic therapy. 2. Elevated troponin level. This is problematic. The etiology of this is very unlikely to be an acute coronary syndrome. With her pleuritic right-sided chest pain, I am concerned about the possibility of a small pulmonary embolism; however, that typically would not cause an elevation in troponin. For now, the safest course, I believe would be to increase her anticoagulation by increasing Lovenox to 1 mg/kg subcutaneously q. 12 hours. We will obtain a lower extremity venous ultrasound. If that is negative, then we will return to DVT prophylaxis doses of Lovenox. It is possible that she has a pleuropericarditis which is causing her pleuritic pain and causing some pericardial inflammation that would result in elevated troponins, but I would like to rule out the presence of clot first before I assume that diagnosis. [facility] and I thank Dr. Gonzalez for asking our advice regarding the patient's care. [place], [place] PROGRESS NOTE NAME: TOD HERNANDEZ UNIT #: [id number] ROOM: 523 DOCTOR: YOLANDA BALL MD BIRTHDATE: [birth year] YOLANDA BALL MD CM:PNTRANS [id number] YOLANDA BALL MD 02/07/17 1010 interface
--- NOTE | ~2017-02-04 | PR ---
[place], [place] PROGRESS NOTE [id number] UNIT #: [id number] ROOM: 523 DOCTOR: RONI BURTON MD,JESSICA BIRTHDATE: [birth year] DOS: 02/06/2017 PULMONARY PROGRESS NOTE SUBJECTIVE: She has been noted comfortable at this time without any symptoms of chest pain ____ medication. The cough has been noted without any sputum expectoration. Denies symptoms of chest pain or any abdominal pain. The patient has an echocardiogram that was repeated yesterday as well for this patient that has been reported as a technically limited study for this patient with left ventricular ejection fraction noted 60% without any significant valvular abnormalities. Kulu-kl-ohabtsca pericardial effusion was noted without any tamponade. The arterial blood gas that was repeated yesterday on 3 liters shows pH of 7.39, pCO2 of 46, pO2 85.3. Blood culture for the patient from the 4th of this month were reported ____, no bacterial growth. Final culture results were pending. IMPRESSION: 1. The patient with acute bacterial pneumonia. The patient is responding to current treatment with gram-positive and gram-negative organisms. This patient treated with the antibiotics. The patient is on Levaquin and vancomycin. 2. The patient with history of chronic hypoxic respiratory failure as well. 3. History of bronchial asthma, uncomplicated, severe, persistent. 4. History of chronic nicotine dependence. 5. Severe morbid obesity for the patient as well as obstructive sleep apnea disorder. PLAN OF TREATMENT: No changes in the plan of management for this patient at this time. Continue the patient's current therapy as in progress. Usual care. Supportive plan of management and care. Usual treatment. JESSICA TAMAYO MD CM:PNTRANS [phone] JESSICA BURTON MD 02/06/17 491 interface
--- NOTE | ~2017-02-04 | PR ---
[place], [place] PROGRESS NOTE NAME: TOD HERNANDEZ UNIT #: [id number] ROOM: 523 DOCTOR: YOLANDA BALL MD BIRTHDATE: [birth year] DOS: 02/07/2017 SUBJECTIVE: The patient was seen today at her bedside on 02/07/2017. She was sleeping when I entered the room and breathing easily with BiPAP. She does appear more comfortable and her chest pains are decreasing. OBJECTIVE: VITAL SIGNS: Today, her pulse is 90 and regular, blood pressure was 88/52. She was afebrile. LUNGS: Respirations are unlabored. Her chest is clear to auscultation and percussion. There were no wheezes, rales or rubs. HEART: Had a regular rhythm and S4 gallop, but no S3 or murmur. No pericardial rub was present. ABDOMEN: Obese, but otherwise benign. EXTREMITIES: Showed no edema. Renal functions have worsened. Creatinine has risen from 1.07 to 3.02 with a BUN increased from 11 to 33. She is being seen now by Nephrology. They have approved her current dose of enoxaparin. IMPRESSION: 1. Pleuritic chest pain, most likely this is due to a pulmonary infection. 2. Elevated troponin level. This may be due to a pleural pericarditis caused by her infection. She has no previous history of DVT and her examination is not consistent with that diagnosis. I had ordered a lower extremity venous ultrasound, but this has been canceled; however, multiple previous lower extremity venous ultrasounds were normal. PLAN: For now, we will continue full dose Lovenox and continue to observe the patient with her other physicians. Basic metabolic profile and CBC are pending for the morning. I thank Dr. Gonzalez for asking our advice regarding the patient's care. [place], [place] PROGRESS NOTE NAME: TOD HERNANDEZ UNIT #: [id number] ROOM: 523 DOCTOR: YOLANDA BALL MD BIRTHDATE: [birth year] YOLANDA BALL MD CM:PNTRANS [phone] YOLANDA BALL MD 02/08/17 0552 interface
--- NOTE | ~2017-02-04 | PR ---
[place], [place] PROGRESS NOTE NAME: TOD HERNANDEZ UNIT #: [id number] ROOM: 523 DOCTOR: RONI BURTON MD,JESSICA BIRTHDATE: [birth year] DOS: 02/12/2017 SUBJECTIVE: She has been comfortably resting patient at this time on a bed. She has not been noted symptoms of chest pain, coughing or any sputum expectoration at the present time. She has been using her BiPAP from home as well at nighttime and p.r.n. in the day. OBJECTIVE: VITAL SIGNS: Shows normal temperature, respiratory recorded 18, heart rate 78, blood pressure 124/63. HEENT: Shows no acute change. NECK: Supple. CARDIOVASCULAR: S1, S2 is audible. LUNGS: The patient was noted as clear. ABDOMEN: Soft, obese, nontender. LABORATORY DATA: The chest x-ray of the patient that was done this morning shows evidence of pleural fluid ____from the PAC system because it was not functional. IMPRESSION: 1. The patient with acute pneumonia with right pleural fluid. The patient with possibility of pleural fluid secondary to either bacterial pneumonia or congestive heart failure would be considered. 2. Chronic obesity as well. PLAN OF TREATMENT: The patient will be continued with current plan of therapy at this time without any changes. Monitor pleural fluid. Assess the chest x-ray of the patient once available. Supportive therapy, plan of management and care. Usual treatments. JESSICA TAMAYO MD CM:PNKESHA [id number] JESSICA BURTON MD 02/12/17 1441 interface
--- NOTE | ~2017-02-04 | PR ---
[place], [place] PROGRESS NOTE [id number] UNIT #: [id number] ROOM: 523 DOCTOR: FRANCO CAPUTO MD BIRTHDATE: [birth year] DOS: SUBJECTIVE: As soon as she was brought to the floor, started spiking fever yesterday. She also has nausea, but has not had any emesis. Continues to be sick during the night, only went to bed around early this morning. 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 OBJECTIVE: VITAL SIGNS: Blood pressure is 145/92, pulse of 102, respirations 20, temperature 100.4, T-max of 102.6 yesterday evening. LUNGS: Diminished breath sounds. HEART: Regular. ABDOMEN: Obese. EXTREMITIES: Without any edema. LABORATORY DATA: Echocardiogram showed normal LV function, ejection fraction 60%, small to moderate pericardial effusion without a tamponade. Cultures are pending. ASSESSMENT AND PLAN: 1. The patient who presents with pleuritic pain of the right side with a CT angiogram and a chest x-ray both showing no evidence of pneumonia, but with the high-grade fever that she has had, cannon cultures have been ordered and it is possibility that she may be developing some right lower lobe pneumonia. IV antibiotics have been started. 2. Again chest pain. Troponins have been negative. Echocardiogram shows normal LV function. Dr. Vera was consulted, had a stress test in 10/2015, it was unremarkable. 3. Type 2 diabetes mellitus, on insulin pump. Blood sugar was 84 yesterday. FRANCO CAPUTO MD CM:PNTRANS 47 FRANCO CAPUTO MD 02/06/171947 interface
--- NOTE | ~2017-02-04 | PR ---
[place], [place] PROGRESS NOTE NAME: TOD HERNANDEZ UNIT #: [id number] ROOM: 523 DOCTOR: RONI BURTON MD,JESSICA BIRTHDATE: [birth year] DOS: 02/07/2017 SUBJECTIVE: The patient was seen and examined on 02/07/2017. She has reported reduction in symptoms of chest pain and the shortness of breath was also noted decreased. The coughing has been noted mild. The patient denies symptoms of hemoptysis. She has been using her BiPAP as ordered. OBJECTIVE: VITAL SIGNS: For the patient which has been recorded showed the temperature of the patient noted as normal at this time, respiratory rate 18, heart rate 76, blood pressure 91/50-102/62. Pulse oxygen saturation noted on 3 liters nasal cannula was 95% saturation. BiPAP was 95% saturation as well. HEENT: Examination shows no new change. NECK: Supple. CARDIOVASCULAR: S1, S2 audible. LUNGS: The patient was noted with moderate decreased breath sounds without any wheezing or crackles. ABDOMEN: Soft, nontender. EXTREMITIES: Showed no edema. LABORATORY DATA: BMP this morning, BUN 33, creatinine 3.02. Glucose noted 102. CBC of the patient this morning, WBC count 11.3, hemoglobin 9.5, hematocrit 31.2 with a normal platelet count. IMPRESSION: 1. The patient who has been currently treated for acute pneumonia involving the right lower lobe for this patient. 2. History of chronic hypoxic respiratory failure as well and hypercapnia. 3. The patient with evidence of uncomplicated severe persistent bronchial asthma. 4. The patient was noted with acute kidney injury. Acute rise of creatinine for the patient may be related to the IV contrast or other etiology for this patient at this time would be rather considered. 5. Type 2 diabetes mellitus as well. PLAN OF TREATMENT: Continue oxygen supplementation, bronchodilators. Nephrology consultation will be beneficial to assess acute rise of creatinine for this patient since the past couple of days. The vancomycin trough level was noted therapeutic yesterday at 16.8. Other supportive therapy, plan of management will continue. Usual care. All other treatment as in progress. [place], [place] PROGRESS NOTE NAME: TOD HERNANDEZ UNIT #: [id number] ROOM: 523 DOCTOR: JESSICA GOLDBERG MD BIRTHDATE: [birth year] JESSICA TAMAYO MD CM:PNTRANS 32 JESSICA BURTON MD 02/07/172031 interface
--- NOTE | ~2017-02-04 | PR ---
[place], [place] PROGRESS NOTE NAME: TOD HERNANDEZ UNIT #: [id number] ROOM: 523 DOCTOR: MARYCARMEN LOPEZ MD BIRTHDATE: [birth year] DOS: 02/11/2017 SUBJECTIVE: The patient is alert and oriented, continues to feel better. OBJECTIVE: GENERAL APPEARANCE: The patient is alert and oriented x 3, in no visible distress, morbid obesity. VITAL SIGNS: VITAL SIGNS: Blood pressure 112/50, heart rate of 68 beats per minute, breathing 18 times per minute, afebrile. HEENT AND NECK: Exam within normal limits. CARDIOVASCULAR SYSTEM: Heart rate is regular in rate and rhythm. S1 and S2 normally audible. LUNGS: Clear to auscultation. ABDOMEN: Soft, nontender. No obvious organomegaly. Bowel sounds are present. EXTREMITIES: Without significant cyanosis or edema. IMPRESSION: 1. Pneumonia and hypoxemia, being treated with antibiotics and nebulizer treatments. The patient expecting to be discharged to home tomorrow. The patient has acute bacterial pneumonia with right-sided pleuritic chest pains. 2. Benign essential hypertension. Blood pressure is being monitored and treated. 3. Type 2 diabetes mellitus, insulin requiring. Blood sugars are being monitored and treated. 4. Acute kidney disease, apparently resolved with treatment and hydration. 5. Acute tubular necrosis with BUN and creatinine was also improved and kidney failure resolved, it was secondary to her acute illness. 6. Adult failure to thrive. MARYCARMEN LOPEZ MD CM:PNTRANS [id number] MARYCARMEN LOPEZ MD 02/12/17 0324 interface
--- NOTE | ~2017-02-04 | PR ---
[place], [place] PROGRESS NOTE NAME: TOD HERNANDEZ UNIT #: [id number] ROOM: 523 DOCTOR: FRANCO CAPUTO MD BIRTHDATE: [birth year] DOS: SUBJECTIVE: The patient is resting comfortably, does not have any new complaints. OBJECTIVE: VITAL SIGNS: Graphic trend shows a pressure of 150/67, pulse of 81, respirations 20, temperature 98.3. LUNGS: Clear. HEART: Regular. ABDOMEN: Obese. EXTREMITIES: Without any edema. ASSESSMENT: 1. Pleural effusion, parapneumonic from the pneumonia, which is resolving. 2. COPD, end-stage, oxygen dependent with chronic respiratory failure, acute exacerbation, improved and stable. PLAN: To discharge her home on p.o. antibiotics. FRANCO CAPUTO MD CM:PNKESHA 7 [phone] FRANCO CAPUTO MD 02/15/172043 interface
--- NOTE | ~2017-02-04 | PR ---
[place], [place] PROGRESS NOTE NAME: TOD HERNANDEZ UNIT #: [id number] ROOM: 523 DOCTOR: JESSICA GOLDBERG MD BIRTHDATE: [birth year] DOS: 02/08/2017 PROGRESS NOTE SUBJECTIVE: She has been noted with continued reduction of the respiratory symptoms including the pain and cough. There were no symptoms of chest pain noted in the last 24 hours. Denies symptoms of abdominal pain. Shortness of breath has been improving. She had been using her own BiPAP for this patient at nighttime p.r.n. as well as during the day. OBJECTIVE: VITAL SIGNS: Show normal temperature, respiratory rate 20, heart rate of 76, blood pressure 126/99. Pulse oxygen saturation of the patient noted on 3 liters nasal canula 97% saturation. HEENT: Shows no acute change. NECK: Supple. CARDIOVASCULAR: S1, S2 is audible. LUNGS: The patient was noted without any wheezing or crackles at the present time. ABDOMEN: Soft, nontender. IMPRESSION: 1. The patient was currently responding to current treatment for acute pneumonia for the patient in the right lower lobe for this patient with history of chronic hypoxic respiratory failure with uncomplicated bronchial asthma. 2. Acute kidney injury for the patient was also noted. The patient with improvement in the last 24 hours with reduction in creatinine for the patient to 2.14, MB noted at 32. 3. Hyperglycemia, history of type 2 diabetes mellitus. PLAN OF MANAGEMENT: Obtain a chest x-ray, PA and lateral view today for this patient for reassessment of the pneumonia. Continue to monitor kidney function and management. Other supportive therapy, plan of management and other care. Further treatment changes will be done based on the progression of the illness. [place], [place] PROGRESS NOTE NAME: TOD HERNANDEZ UNIT #: [id number] ROOM: 523 DOCTOR: JESSICA GOLDBERG MD BIRTHDATE: [birth year] JESSICA TAMAYO MD CM:PNTRANS [phone] JESSICA BURTON MD 02/09/17 0033 interface
[2017-02-04 19:48] VITALS: BP 141/73
[2017-02-04 20:44] LABS: BASO % 0.3 % (0.0-1.0); EOS # 0.3 10*3/uL (0.0-0.4); EOS % 1.7 % (1.0-4.0); HEMATOCRIT 39.3 % (37.0-47.0); HEMOGLOBIN 11.6 g/dl (12.0-16.0); IG # 0.1 10*3/uL (0.0-0.1); LYMPH # 4.2 10*3/uL (1.3-4.4); LYMPH % 27.7 % (27.0-41.0); MEAN CELL VOLUME 90.3 fl (81.0-99.0); MEAN CORPUSCULAR HGB 26.7 pg (27.0-31.0); MEAN CORPUSCULAR HGB CONC 29.5 g/dl (33.0-37.0); MEAN PLATELET VOLUME 10.6 fl (9.6-12.3); MONO # 1.3 10*3/uL (0.1-1.0); MONO % 8.7 % (3.0-9.0); NEUT # 9.2 10*3/uL (2.3-7.9); NEUT % 61.2 % (47.0-73.0); PLATELET COUNT AUTOMATED 313 10*3/uL (130-400); RED BLOOD COUNT 4.35 10*6/uL (4.10-5.10); RED CELL DISTRI WIDTH 14.8 % (0-14.5)
[2017-02-04 20:53] LABS: PROTHROMBIN TIME 10.3 SECONDS (9.0-12.4)
[2017-02-04 20:58] LABS: ABG BASE EXCESS 3.3 mmol/L (-2.0-2.0); ABG HCO3 27.7 mmol/l (22-26); ABG TEMPERATURE 98.6 F (98.0-99.0); ARTERIAL BLOOD GAS PH 7.421 (7.35-7.45)
[2017-02-04 21:01] LABS: BILIRUBIN, DIRECT 0.1 mg/dL (0.0-0.2); BILIRUBIN, TOTAL 0.4 mg/dl (0.2-1.0); BUN 11 mg/dl (7-24); CARBON DIOXIDE 29 mmol/L (21-32); CHLORIDE 105 mmol/L (98-107); EST GLOM FILT AFRICAN AMERICAN > 60 ml/min; GLUCOSE 59 mg/dL (65-99); POTASSIUM 3.4 mmol/L (3.5-5.1); SGOT/AST 8 IU/L (3-35); SGPT/ALT 11 U/L (12-78); SODIUM 144 mmol/L (136-145); TOTAL PROTEIN 7.1 gm/dL (6.4-8.2)
[2017-02-04 21:05] LABS: ALKALINE PHOSPHATASE 73 U/L (45-117); TROPONIN I < 0.015 ng/ml (<0.045)
[2017-02-04 22:41] LABS: LA>2 REFLEX 2 HR DRAW NOW
[2017-02-04 23:59] VITALS: BP 98/47
[2017-02-05] VITALS (8 sets, daily range): BP systolic 122–182; BP diastolic 50–78
[2017-02-05] MEDS ORDERED: HUMALOG100 U/ML SC (10:02)
[2017-02-05 13:14] LABS: ABG BASE EXCESS 2.4 mmol/L (-2.0-2.0); ABG CO2 CONTENT 27.8 mmol/L (23-27); ABG HCO3 26.6 mmol/l (22-26); ABG TEMPERATURE 102.6 F (98.0-99.0); ARTERIAL BLOOD GAS PH 7.391 (7.35-7.45); ARTERIAL BLOOD GAS PO2 85.3 mmHg (80-90)
[2017-02-05 22:40] LABS: BILIRUBIN 1+ (NEGATIVE); BLOOD NEGATIVE (NEGATIVE); CLARITY CLEAR (CLEAR); COLOR YELLOW (YELLOW); GLUCOSE NEGATIVE (NEGATIVE); KETONE 2+ (NEGATIVE); LEUKO ESTERASE NEGATIVE (NEGATIVE); NITRITE NEGATIVE (NEGATIVE); PH 5.5 (5.0-9.0); PROTEIN 1+ (NEGATIVE); SPECIFIC GRAVITY 1.025 (1.005-1.030)
[2017-02-05 22:58] LABS: BACTERIA TRACE; URINE REFLEX COMMENT NO (NO)
[2017-02-06] VITALS: BP 145/92
[2017-02-06 08:00] VITALS: BP 96/62
[2017-02-06 12:00] VITALS: BP 90/60
[2017-02-06 16:00] VITALS: BP 95/53
[2017-02-06 20:02] VITALS: BP 96/54
[2017-02-06 20:30] VITALS: BP 102/62
[2017-02-07] VITALS: BP 91/56
[2017-02-07 07:08] LABS: BASO % 0.2 % (0.0-1.0); EOS % 0.3 % (1.0-4.0); HEMATOCRIT 31.2 % (37.0-47.0); HEMOGLOBIN 9.5 g/dl (12.0-16.0); IG # 0.1 10*3/uL (0.0-0.1); LYMPH # 3.3 10*3/uL (1.3-4.4); LYMPH % 29.5 % (27.0-41.0); MEAN CELL VOLUME 87.2 fl (81.0-99.0); MEAN CORPUSCULAR HGB 26.5 pg (27.0-31.0); MEAN CORPUSCULAR HGB CONC 30.4 g/dl (33.0-37.0); MEAN PLATELET VOLUME 11.3 fl (9.6-12.3); MONO # 1.3 10*3/uL (0.1-1.0); MONO % 11.4 % (3.0-9.0); NEUT # 6.6 10*3/uL (2.3-7.9); NEUT % 58.2 % (47.0-73.0); PLATELET COUNT AUTOMATED 234 10*3/uL (130-400); RED BLOOD COUNT 3.58 10*6/uL (4.10-5.10); RED CELL DISTRI WIDTH 15.6 % (0-14.5); WHITE BLOOD COUNT 11.3 10*3/uL (4.8-10.8)
[2017-02-07 07:23] LABS: POTASSIUM 4.5 mmol/L (3.5-5.1)
[2017-02-07 08:00] VITALS: BP 91/50
[2017-02-07 12:00] VITALS: BP 90/68
[2017-02-07 16:00] VITALS: BP 88/52
[2017-02-07 20:00] VITALS: BP 118/49
[2017-02-08] VITALS: BP 119/54
[2017-02-08 06:17] LABS: EOS % 0.2 % (1.0-4.0); HEMATOCRIT 28.6 % (37.0-47.0); HEMOGLOBIN 8.6 g/dl (12.0-16.0); LYMPH # 1.8 10*3/uL (1.3-4.4); LYMPH % 28.4 % (27.0-41.0); MEAN CELL VOLUME 88.8 fl (81.0-99.0); MEAN CORPUSCULAR HGB 26.7 pg (27.0-31.0); MEAN CORPUSCULAR HGB CONC 30.1 g/dl (33.0-37.0); MEAN PLATELET VOLUME 11.5 fl (9.6-12.3); MONO # 0.6 10*3/uL (0.1-1.0); MONO % 9.2 % (3.0-9.0); NEUT % 61.7 % (47.0-73.0); PLATELET COUNT AUTOMATED 224 10*3/uL (130-400); RED BLOOD COUNT 3.22 10*6/uL (4.10-5.10); RED CELL DISTRI WIDTH 15.4 % (0-14.5); WHITE BLOOD COUNT 6.4 10*3/uL (4.8-10.8)
[2017-02-08 06:45] LABS: POTASSIUM 4.1 mmol/L (3.5-5.1)
[2017-02-08 08:00] VITALS: BP 126/59
[2017-02-08 12:00] VITALS: BP 110/55
[2017-02-08 16:00] VITALS: BP 128/63
[2017-02-08] MEDS ORDERED: LASIX20 MG PO (17:33)
[2017-02-08] MEDS ORDERED: METFORMIN500 MG PO (17:34)
[2017-02-08 20:00] VITALS: BP 120/59
[2017-02-09] VITALS: BP 111/42; BP 111/52
[2017-02-09 08:00] VITALS: BP 113/55
[2017-02-09 12:00] VITALS: BP 116/52
[2017-02-09 16:00] VITALS: BP 130/81
[2017-02-09 20:00] VITALS: BP 159/54
[2017-02-10] VITALS: BP 125/55
[2017-02-10 06:30] LABS: BASO % 0.1 % (0.0-1.0); EOS % 0.3 % (1.0-4.0); HEMATOCRIT 31.3 % (37.0-47.0); HEMOGLOBIN 9.1 g/dl (12.0-16.0); IG # 0.1 10*3/uL (0.0-0.1); LYMPH # 2.7 10*3/uL (1.3-4.4); LYMPH % 35.3 % (27.0-41.0); MEAN CELL VOLUME 89.4 fl (81.0-99.0); MEAN CORPUSCULAR HGB CONC 29.1 g/dl (33.0-37.0); MEAN PLATELET VOLUME 11.5 fl (9.6-12.3); MONO # 0.7 10*3/uL (0.1-1.0); MONO % 9.4 % (3.0-9.0); NEUT # 4.1 10*3/uL (2.3-7.9); NEUT % 53.1 % (47.0-73.0); PLATELET COUNT AUTOMATED 244 10*3/uL (130-400); RED CELL DISTRI WIDTH 15.4 % (0-14.5); WHITE BLOOD COUNT 7.7 10*3/uL (4.8-10.8)
[2017-02-10 07:05] LABS: BUN 19 mg/dl (7-24); CARBON DIOXIDE 26 mmol/L (21-32); CHLORIDE 109 mmol/L (98-107); EST GLOM FILT AFRICAN AMERICAN > 60 ml/min; GLUCOSE 224 mg/dL (65-99); POTASSIUM 4.2 mmol/L (3.5-5.1); SODIUM 144 mmol/L (136-145)
[2017-02-10 08:00] VITALS: BP 130/78
[2017-02-10 12:00] VITALS: BP 112/60
[2017-02-10 16:00] VITALS: BP 106/50
[2017-02-10 20:00] VITALS: BP 139/65
[2017-02-11] VITALS: BP 125/65; BP 143/60; BP 149/54
[2017-02-11 08:00] VITALS: BP 152/66
[2017-02-11 12:00] VITALS: BP 112/50
[2017-02-11 16:00] VITALS: BP 124/58
[2017-02-11 20:00] VITALS: BP 157/78
[2017-02-12] VITALS: BP 110/55
[2017-02-12 08:00] VITALS: BP 124/63
[2017-02-12 12:00] VITALS: BP 163/67
[2017-02-12 16:00] VITALS: BP 112/64
[2017-02-12 20:00] VITALS: BP 120/51
[2017-02-13] VITALS: BP 126/63
[2017-02-13 04:00] VITALS: BP 114/53; BP 134/61
[2017-02-13 06:01] LABS: HEMOGLOBIN 9.8 g/dl (12.0-16.0); MEAN CELL VOLUME 88.7 fl (81.0-99.0); MEAN CORPUSCULAR HGB 26.3 pg (27.0-31.0); MEAN CORPUSCULAR HGB CONC 29.7 g/dl (33.0-37.0); MEAN PLATELET VOLUME 10.3 fl (9.6-12.3); PLATELET COUNT AUTOMATED 332 10*3/uL (130-400); RED BLOOD COUNT 3.72 10*6/uL (4.10-5.10); RED CELL DISTRI WIDTH 15.6 % (0-14.5); WHITE BLOOD COUNT 10.3 10*3/uL (4.8-10.8)
[2017-02-13 06:26] LABS: BUN 24 mg/dl (7-24); CARBON DIOXIDE 34 mmol/L (21-32); CHLORIDE 105 mmol/L (98-107); EST GLOM FILT AFRICAN AMERICAN > 60 ml/min; GLUCOSE 67 mg/dL (65-99); POTASSIUM 3.9 mmol/L (3.5-5.1); SODIUM 145 mmol/L (136-145)
[2017-02-13 06:35] LABS: EOSINOPHIL # 0.1 10*3/uL (0-0.4); EOSINOPHILS 1 % (1-4); LYMPHOCYTE # 3.2 10*3/uL (1.3-4.4); METAMYELOCYTES 1 % (0-0); MONOCYTE # 0.2 10*3/uL (0.1-1.0); MYELOCYTES 1 % (0-0); NEUTROPHIL # 6.6 10*3/uL (2.3-7.9); NEUTROPHILS 64 % (47-73); TOTAL CELLS COUNTED 100 #CELLS
[2017-02-13 06:36] LABS: OVALOCYTES FEW; PLATELET SUFFICIENCY NORMAL (NORMAL); POLYCHROMASIA SLIGHT; TEAR DROP CELLS FEW
[2017-02-13 08:00] VITALS: BP 111/56
[2017-02-13 12:00] VITALS: BP 95/50
[2017-02-13 16:00] VITALS: BP 113/84; BP 134/61
[2017-02-13 20:00] VITALS: BP 150/67
[2017-02-14] VITALS: BP 146/67
[2017-02-14 08:00] VITALS: BP 135/67
[2017-02-14 12:00] VITALS: BP 123/60
[2017-02-14 16:00] VITALS: BP 133/74
[2017-02-14 20:00] VITALS: BP 112/58
[2017-02-15] VITALS: BP 125/66
[2017-02-15 08:00] VITALS: BP 150/67
[2017-02-15] MEDS ORDERED: CEFUROXIME AXE250 MG PO (08:16)
[2017-02-15] MEDS ORDERED: XANAX0.5 MG PO (08:18)
[2017-02-15] MEDS ORDERED: LYRICA100 M1 PO (08:18)
== END 2017-02-15 10:59 | disposition home or self-care (01) | DRG 871 ==
LOC: ED 19:21 → EDHOLD 02-05 05:45 → 5E 02-05 05:45
PROVIDERS: Emergency Medicine; Internal Medicine; Internal Medicine Critical Care Medicine
DX: A41.9 Sepsis, unspecified organism (principal); J15.9 Unspecified bacterial pneumonia; J96.21 Acute and chronic respiratory failure with hypoxia; N17.0 Acute kidney failure with tubular necrosis; J96.22 Acute and chronic respiratory failure with hypercapnia; J44.0 Chronic obstructive pulmonary disease with (acute) lower respiratory infection; J44.1 Chronic obstructive pulmonary disease with (acute) exacerbation; F19.20 Other psychoactive substance dependence, uncomplicated; E24.9 Cushing's syndrome, unspecified; E11.65 Type 2 diabetes mellitus with hyperglycemia; E66.01 Morbid (severe) obesity due to excess calories; R62.7 Adult failure to thrive; G47.33 Obstructive sleep apnea (adult) (pediatric); F41.9 Anxiety disorder, unspecified; K21.9 Gastro-esophageal reflux disease without esophagitis; Z96.1 Presence of intraocular lens; F32.9 Major depressive disorder, single episode, unspecified; M47.896 Other spondylosis, lumbar region; J20.9 Acute bronchitis, unspecified; D64.9 Anemia, unspecified; I10 Essential (primary) hypertension; J45.50 Severe persistent asthma, uncomplicated; Z80.0 Family history of malignant neoplasm of digestive organs; Z89.429 Acquired absence of other toe(s), unspecified side; Z88.8 Allergy status to other drugs, medicaments and biological substances; Z88.1 Allergy status to other antibiotic agents; Z79.4 Long term (current) use of insulin; Z98.42 Cataract extraction status, left eye; Z98.41 Cataract extraction status, right eye; Z99.81 Dependence on supplemental oxygen; Z79.899 Other long term (current) drug therapy; Z79.2 Long term (current) use of antibiotics; Z88.2 Allergy status to sulfonamides; Z68.36 Body mass index [BMI] 36.0-36.9, adult

== ENCOUNTER 2017-04-25 14:30 | Inpatient (IN) | payer BC, MEDICARE ==
[~2017-04-25] VITALS: Ht 154.9 cm; Wt 114.5 kg
--- NOTE | ~2017-04-25 | PR ---
[place], [place] PROGRESS NOTE NAME: [id number] UNIT #: [id number] ROOM: 408 DOCTOR: YOLANDA BALL MD BIRTHDATE: [birth year] DOS: 05/01/2017 CARDIOLOGY PROGRESS NOTE SUBJECTIVE: The patient was seen on the morning of 05/01/2017 for followup of her transesophageal echocardiogram. She tolerated the procedure well and no evidence for endocarditis was seen. She is still having considerable problems with IV access. In addition, her wound cultures from her heel are growing methicillin-sensitive Staphylococcus aureus and she will require long-term antibiotic therapy for a probable osteomyelitis. This is being managed by her Infectious Disease consultants. PHYSICAL EXAMINATION: VITAL SIGNS: Today, her pulse is 100 and regular, blood pressure is 127/87. She is afebrile. She weighs 114.5 kilograms with a body mass index of 47.7. HEENT: Normocephalic, atraumatic. NECK: Supple. EXTREMITIES: Showed no edema. The patient does appear to be stable from a cardiac standpoint. No other cardiac evaluation is pending at this time. Cardiology will sign off, but we will remain available as needed should our services be useful in the future. I thank Dr. Farmer for asking our advice regarding management of this patient. YOLANDA BALL MD CM:PNTRANS [id number] YOLANDA BALL MD 05/01/17 1342 interface
--- NOTE | ~2017-04-25 | PR ---
[place], [place] PROGRESS NOTE NAME: TOD HERNANDEZ UNIT #: [id number] ROOM: 408 DOCTOR: MARYCARMEN LOPEZ MD BIRTHDATE: [birth year] DOS: 04/29/2017 SUBJECTIVE: The patient is feeling about the same. No new complaints. OBJECTIVE: VITAL SIGNS: Blood pressure 130/94, heart rate of 85 beats per minute, afebrile, breathing normally with BiPAP, which she also takes at home. GENERAL APPEARANCE: The patient is alert and oriented x 3, in no visible distress. Generalized weakness and obesity. HEENT AND NECK: Exam within normal limits. CARDIOVASCULAR SYSTEM: Heart rate is regular in rate and rhythm. S1 and S2 normally audible. LUNGS: Clear to auscultation. ABDOMEN: Soft, nontender. No obvious organomegaly. Bowel sounds are present. EXTREMITIES: Without significant cyanosis or edema. IMPRESSION: 1. The patient's fungal positive blood cultures, treated with MediPort removal and she is going for EBONIE evaluation tomorrow to look for fungal endocarditis. 2. The patient with osteomyelitis involving right heel on MRI study, undergoing 6 weeks of IV vancomycin. 3. Morbid obesity and adult failure to thrive with generalized weakness. The patient working with physical therapy. 4. Right heel pains and chronic pains for which patient is chronically on Percocet, which has been continued. 5. Chronic obstructive pulmonary disease with chronic respiratory failure and oxygen dependence. The patient is on bronchodilators. 6. Diabetic polyneuropathy and chronic lower extremity pains treated with ____ at home. 7. Amputation of the first toe of the left foot for previous infection. MARYCARMEN LOPEZ MD CM:PNTRANS 99 06 MARYCARMNE LOPEZ MD 04/29/172206 interface
--- NOTE | ~2017-04-25 | PR ---
[place], [place] PROGRESS NOTE NAME: TOD HERNANDEZ UNIT #: [id number] ROOM: 408 DOCTOR: TERRELL LAI M.D. BIRTHDATE: [birth year] DOS: 05/01/2017 SUBJECTIVE: The patient reports no specific changes with her foot. She still has some discomfort in the heel area, but otherwise the open area of the wound is actually healing quite nicely. The patient did have her ultrasound done yesterday of the right heel and there was no focal fluid collection seen within the area of concern. OBJECTIVE: VITAL SIGNS: Stable. Temperature 98.1, pulse is 83, respirations 20, pressure is 150/61. The wounded area is healing quite nicely. There is still some discoloration present along the callus formation, but that has not changed in anyway. ASSESSMENT AND PLAN: Diabetic foot ulcer with abscess. The wound is stable antibiotics are being managed per Infectious Disease. The patient is considering discharge to either a LTAC or to home. TERRELL LAI MD CM:PNTRANS [id number] TERRELL LAI M.D. 05/02/17 0501 interface
--- NOTE | ~2017-04-25 | PR ---
[place], [place] PROGRESS NOTE NAME: TOD HERNANDEZ UNIT #: [id number] ROOM: 408 DOCTOR: JESSICA FREDERICK,MARYCARMEN Newsome BIRTHDATE: [birth year] DOS: 05/01/2017 SUBJECTIVE: The patient is doing well, ____, has a PICC line placed now. OBJECTIVE: VITAL SIGNS: Blood pressure 150/61, heart rate 83 beats per minute, breathing 20 times per minute, temperature 98 degrees Fahrenheit, breathing normally, morbidly obese with generalized weakness. IMPRESSION: 1. The patient's blood cultures positive for fungal growth with budding yeast, to be treated with micafungin that as recommended by Infectious Disease for 2 weeks. 2. 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 3. Amputation of the first toe of the left foot for previous infection. 4. Diabetic polyneuropathy with chronic lower extremity pains, treated with Percocet at home. 5. Chronic obstructive pulmonary disease with chronic respiratory failure and oxygen dependence. 6. Morbid obesity and adult failure to thrive. The patient is working with physical therapy. 7. The patient with MediPort removal for positive fungal cultures with EBONIE negative for any endocarditis. 8. Type 2 diabetes mellitus, uncontrolled and poor compliance with diet and treatment. MARYCARMEN LOPEZ MD CM:PNTRANS 05 39 MARYCARMEN LOPEZ MD 05/01/172239 interface
--- NOTE | ~2017-04-25 | PR ---
[place], [place] PROGRESS NOTE [id number] UNIT #: [id number] ROOM: 408 DOCTOR: MING NewsomeTERRELL BIRTHDATE: [birth year] DOS: 04/25/2017 WOUND CARE PROGRESS NOTE CHIEF COMPLAINT: New blistered area of the right heel. HISTORY OF PRESENT ILLNESS: This is a 47-year-old female with poorly controlled diabetes, multiple medical problems, severe asthma, on chronic steroid therapy and recurrent diabetic foot ulcers, who presents to the wound clinic with a blistered area of her right heel. She said it started last , it started out very small, just like a normal blister, she left it alone, just kept getting bigger and there was associated pain, discomfort and redness coming from the area. The blister itself never drained and she is not really sure why or how it started. She said she is wearing her postop boot at this time, but otherwise does not recall specifically any traumatic injury or any reason that the blister would start. She is well known to the Wound Clinic for multiple recurrent diabetic foot ulcers. She has most recently had a diagnosis of osteomyelitis of the left foot and underwent incision and drainage and debridement of the first metatarsal head back in October that was done by Dr. Pratt at the time and she was treated with the course of IV antibiotics and eventually the wound did heal, but we have not seen her since that time in October. PAST MEDICAL HISTORY: Significant for morbid obesity, past history of amputations in the past of the first two toes of the left foot, diabetes type 2, uncontrolled, severe COPD, asthma, chronic polyneuropathy, chronic back pain, history of pancreatic cyst, generalized anxiety disorder and history of renal insufficiency, ALLERGIES: PROCHLORPERAZINE, SULFAMETHOXAZOLE. WE HAVE LISTED ALLERGIES TO BACTRIM AND SEPTRA, WHICH SHE STATES CAUSES STOMACH UPSET, COMPAZINE AND REGLAN. MEDICATIONS: Her medications that she is on have not been entered into the computer. She reports no fevers or chills and no change in her sugar control that she is aware of. PHYSICAL EXAMINATION: VITAL SIGNS: She is afebrile, pulse of 62, respirations 20, blood pressure is 124/60. Her SARAH on the right side was 1.06 and the left was 0.76. Her pedal pulses are palpable. She has the area of her left heel, which is basically an intact blister that is measuring 2.8 x 4.9 x 0.1 and it is essentially encompassing the entire right heel. There are also some dark spots on the heel itself with thick callus noted as well. The blister itself has some fluid in it that is present. It is slightly tender to touch and there is some surrounding erythema. It is difficult to tell if it is clear or not presently. She has also some smaller ulcerations, there is one on the right third toe that is 0.4 x 0.3 x 0.2 and looks clean. There is no necrotic tissue. There is another one on the right [place], [place] PROGRESS NOTE NAME: TOD HERNANDEZ UNIT #: [id number] ROOM: [facility] DOCTOR: MING Newsome,TERRELL BIRTHDATE: [birth year] foot that is measuring 0.2 x 0.1 x 0.1, it looks clean as well. There is another one that is fairly superficial on the fourth toe that is 0.3 x 0.4 x 0.1. So, due to the fact that the patient had pain, discomfort and redness associated with this blistered area, an incision and drainage was done. The area was prepped and #15 blade was used. A large amount of purulent material was drained. Due to the excessive amount of purulence and notable large amount of devitalized tissue after the drainage was occurred, a debridement was also done. The tissue removed was really just devitalized tissue only and that was quite extensive. There was some tracking noted as well, but it did not track deep, it attracted more horizontally towards the callused area. All the purulence was drained and the entire necrotic area was debrided. There was minimal bleeding. Two separate cultures were obtained. The purulence was definitely foul smelling and very thick. Post-debridement measurements are 3 x 5.7 x 0.4. That layer was exposed. ASSESSMENT AND PLAN: Diabetic foot ulcer with an abscess that was drained due to the extent of the area, infected and affected and there might be some possibly deeper infection noted, I would definitely ask for Podiatry to also evaluate the patient to see if any further surgical debridement is necessary. Due to the nature of the illness, we will recommend admission. The patient is going to be transferred to the ER. I did call the Emergency Room Department and give report. She does have a history of osteomyelitis in the left foot and is on steroids. Apparently, the patient states she is still on prednisone, so she is at high risk for infection and will need to be worked up for osteomyelitis as well, so the patient is going to be transferred to the ER for further management and admission. In the meantime for now, I would use Silvadene to the open area and a bulky dressing. TERRELL LAI MD CM:PNTRANS [id number] TERRELL LAI M.D. 04/26/17 0741 interface
--- NOTE | ~2017-04-25 | PR ---
[place], [place] PROGRESS NOTE NAME: TOD HERNANDEZ UNIT #: [id number] ROOM: 408 DOCTOR: LUIZA MAYEN DPM BIRTHDATE: [birth year] DOS: 04/30/2017 SUBJECTIVE: The patient is seen today for followup of right heel ulcer. She has no complaints in regards to her foot. OBJECTIVE: EXTREMITIES: Neurovascular status is unchanged. The right heel wound is still clean and granular with no edema or erythema. No purulent drainage or malodor. No deep sinus tracts were seen. The area looks noninfected clinically. ASSESSMENT: Diabetic ulcer, right heel, doing well. PLAN: Evaluation and management. Continue with wound care and offloading. Wound is stable at this time. Reevaluate in the next day or two, but right now she is doing well from a heel standpoint. LUIZA MAYEN DPM CM:PNTRANS [id number] LUIZA MAYEN DPM 04/30/17 1415 interface
--- NOTE | ~2017-04-25 | PR ---
[place], [place] [facility]GRESS NOTE [id number] UNIT #: [id number] ROOM: 408 DOCTOR: LUIZA MAYEN DPM BIRTHDATE: [birth year] DOS: 04/27/2017 SUBJECTIVE: This patient is seen for followup of the right heel ulcer. She states she is feeling well. The heel does feel better. She still has some discomfort with it, but it is much improved from a few days ago. Overall, no complaints. OBJECTIVE: Neurovascular status is unchanged. The right heel wounds are very clean and granular. The wounds are full thickness at this time. There is no drainage seen on the bandage. There is no expressible drainage from the wound. There is a small site plantar heel that has been incised but that is dry with no expressible drainage. No deep sinus tracts. There is no surrounding erythema or cellulitis. No malodor . WBC was 8.1 with no shift. The patient is afebrile and her sed rate 45 and C-reactive protein was 3.27. ASSESSMENT: Diabetic ulcer, right heel, recent infection. PLAN: Evaluation and management. I discussed with the patient as well as with Dr. Farmer that the wound clinically is clean, granular, with no signs of infection. There is no erythema. No purulent drainage, no malodor. Infectious Disease is going to send her home on IV antibiotics. I do not feel she needs any surgical procedure or any intervention as far as that goes. She should offload the heel, do daily wound care. It is okay from our standpoint for her to be discharged. She can follow up at the wound care center next week. Thank you for the opportunity to take part in care of this patient. LUIZA MAYEN DPM CM:PNKESHA [id number] LUIZA MAYEN DPM 04/28/17107 interface
--- NOTE | ~2017-04-25 | PR ---
[place], [place] PROGRESS NOTE NAME: TOD HERNANDEZ UNIT #: [id number] ROOM: 408 DOCTOR: MARYCARMEN LOPEZ MD BIRTHDATE: [birth year] DOS: 04/28/2017 SUBJECTIVE: The patient apparently is sleepy because she is taking Percocet, but otherwise she does wake up and is oriented. The patient is also asking for more pain meds. OBJECTIVE: VITAL SIGNS: Blood pressure 152/77, heart rate 86 beats per minute, breathing 18 times per minute, temperature 98 degrees Fahrenheit. IMPRESSION: 1. The patient with fungal infection on blood cultures, for which MediPort was removed and the patient also going for a EBONIE on Sunday for evaluating her for fungal endocarditis. 2. The patient with osteomyelitis involving right heel on MRI study and is undergoing IV vancomycin for 6 weeks. 3. Morbid obesity and adult failure to thrive with generalized weakness. The patient is working with physical therapy. 4. The patient's pain is adequately controlled with Percocet and she is also requesting IV Demerol, which appears to be inappropriate. She appears to be comfortable and already sedated or even oversedated with present dose of Percocet. 5. COPD with chronic respiratory failure and oxygen dependence, advanced disability. The patient is being treated with bronchodilators. 6. Diabetic polyneuropathy with chronic lower extremity pains treated with Percocet. 7. Amputation of the first toe of the left foot for previous infection. MARYCARMEN LOPEZ MD CM:PNTRANS [id number] MARYCARMEN LOPEZ MD 04/28/17 2144 interface
--- NOTE | ~2017-04-25 | CON ---
[place], [place] REPORT OF CONSULTATION NAME: TOD HERNANDEZ UNIT #: [id number] ROOM: 408 DOCTOR: YOLANDA BALL MD BIRTHDATE: [birth year] DOS: 04/27/2017 REASON FOR CONSULTATION: Yeast fungemia, please do EBONIE. HISTORY OF PRESENT ILLNESS: The patient is a 47-year-old woman who does have a long history of asthma with recurrent hospitalizations for respiratory failure. She has been on long-term steroid therapy. She has developed morbid obesity and does have insulin requiring type 2 diabetes mellitus. She had a large nonhealing ulceration on her right heel, which was increasing in size and therefore was brought to the hospital for evaluation by infectious disease consultants. The patient was found to have probable osteomyelitis. Blood cultures showed budding yeast and, therefore, we were asked to do a transesophageal echocardiogram in order to rule out endocarditis. Please note the patient did have a transthoracic echocardiogram on 02/05/2017, but the study was technically limited and did not show right heart structures very well. Therefore, I felt that it was appropriate to proceed directly to a EBONIE at this time. PAST MEDICAL HISTORY: Includes 1. Osteomyelitis of the left foot, status post amputations of the first and second toes. 2. Type 2 diabetes mellitus requiring insulin. 3. Morbid obesity. 4. Asthma since childhood requiring long-term steroid use. The patient is felt to have end-stage lung disease. 5. Pancreatic cyst. 6. Generalized anxiety disorder. 7. Severe sleep apnea on CPAP. 8. Recurrent respiratory failure in the past. 9. Essential hypertension. 10. Gastroesophageal reflux disease. 11. Multiple bronchoscopies. 12. Bilateral cataract resections. MEDICATIONS PRIOR TO ADMISSION: Albuterol 2 inhalations q.6 hours p.r.n., oxygen by continuous nasal cannula 2 liters per minute, vancomycin 2 grams IV q.18 hours, DuoNeb by nebulizer q.4 hours, latanoprost eyedrops in the right eye, alprazolam 0.5 mg b.i.d., Fioricet p.r.n. headaches, calcium carbonate 600 mg b.i.d., diltiazem 240 mg daily, famotidine 40 mg daily, lisinopril 40 mg daily, oxycodone p.r.n., paroxetine 30 mg daily, prednisone 30 mg daily, Lyrica 100 mg b.i.d., Prandin 1 mg t.i.d., Daliresp 500 mcg daily and Humalog insulin by insulin pump with basal and bolus therapies. ALLERGIES: The patient lists allergies to METOCLOPRAMIDE, PROCHLORPERAZINE, SULFAMETHOXAZOLE, TRIMETHOPRIM and MORPHINE. REVIEW OF SYSTEMS: The patient denies diplopia or loss of vision. She denies focal weakness. She denies lightheadedness or syncope. She denies any breathing problems at this time. She denies fevers or chills. She denies [place], [place] REPORT OF CONSULTATION NAME: TOD HERNANDEZ UNIT #: [id number] ROOM: [facility] DOCTOR: YOLANDA BALL MD BIRTHDATE: [birth year] orthopnea or PND. She denies change in bowel or bladder habits. She denies bleeding from any site. The remainder of the review of systems is negative except as noted above. FAMILY HISTORY: Negative for early coronary artery disease. SOCIAL HISTORY: The patient has never smoked and does not consume alcohol or illegal drugs. PHYSICAL EXAMINATION: GENERAL: The patient is a morbidly obese white female who is awake, alert and oriented. VITAL SIGNS: Pulse is 78 regular. Blood pressure is 144/47. She is afebrile. HEENT: Normocephalic, atraumatic. Extraocular muscles are intact. Sclerae are clear. Pupils are equal, round and react to light. The oral mucosa is moist. Tongue is midline. NECK: Supple. She has no jugular distention. Carotids are full. I heard no bruits. She had no neck or supraclavicular masses. No thyromegaly. LUNGS: Respirations are unlabored. She does have decreased breath sounds bilaterally but no wheezes or rales. She does not have expiratory prolongation. There is no presacral edema or chest wall tenderness. HEART: Has a regular rhythm. She does have a fourth heart sound, but no third heart sound or murmur. The PMI is not palpable. There is no precordial heave, lift or thrill. ABDOMEN: Obese, but otherwise benign, without masses, organomegaly or bruits. EXTREMITIES: Showed no obvious edema. Her legs are wrapped. Electrocardiogram is pending. LABORATORY DATA: Chest x-ray is pending. IMPRESSION: Yeast fungemia. PLAN: We will proceed with a transesophageal echocardiogram with anesthesia support. Study will be scheduled for 04/30/2017. I did speak to the patient at length about the risks and benefits of transesophageal echocardiography. The major risks include respiratory problems, aspiration, vomiting, anesthesia reactions and sore throat. The benefits are that we will know the presence or absence of fungal endocarditis and its extent. This will help the infectious disease specialist with their plans for therapy. The patient understands these risks and benefits and agrees to proceed. We thank Dr. Farmer for asking our advice regarding management of this patient. [place], [place] REPORT OF CONSULTATION NAME: TOD HERNANDEZ UNIT #: [id number] ROOM: [facility] DOCTOR: YOLANDA BALL MD BIRTHDATE: [birth year] YOLANDA BALL MD CM:CONSTR:REPORT OF CONSULTATION 1538 04/28/17 0645 interface
--- NOTE | ~2017-04-25 | PR ---
[place], [place] PROGRESS NOTE NAME: [id number] UNIT #: [id number] ROOM: 408 DOCTOR: TERRELL LAI M.D. BIRTHDATE: [birth year] DOS: 04/30/2017 FOLLOWUP WOUND CARE VISIT SUBJECTIVE: Events noted. The patient had her MediPort removed due to fungemia. She has been maintained on IV vancomycin for her diabetic foot ulcer. Imaging study read as possible acute superficial osteomyelitis. There were diffuse inflammatory changes and fluid collection was noted as well measuring 1 x 3 x 0.8 ulcer noted. This was extending to the medial cor plantar fascia. The wound itself; however, is stable and has been improving. The wound cultures did grow Staph aureus, which was not MRSA, but essentially pansensitive. The patient underwent a EBONIE today as well and just returned. The patient reports that she still has some pain and discomfort on the heel. There have been no changes as far as no increasing drainage. No fevers or chills are noted. OBJECTIVE: VITAL SIGNS: Pulse of 110, respirations 18, blood pressure of 139/65. EXTREMITIES: The dressing was removed. The wound itself looks good, where the abscess was drained. She does still have a spot that is approximately the size of a nickel to quarter that is darkened and tender to touch, although there is no purulent material expressed from it. There is really no overt erythema but this is where she complains of tenderness. She does not have a recent white count. Her BUN yesterday was 24, creatinine is 0.87. CRP is 3.27. ASSESSMENT AND PLAN: Diabetic foot ulcer with possible osteomyelitis. There is some concern of abscess formation noted on MRI, although clinically the open area where a large abscess was drained is definitely stable from what I can appreciate. I was able to discuss with Radiology about considering to obtain an ultrasound of the heel to further evaluate that collection. Also I would like to discuss with Infectious Disease as well further opinion regarding antibiotic therapy. I will follow along with you. TERRELL LAI MD CM:ARTI [id number] TERRELL LAI M.D. 05/01/17 0756 interface
--- NOTE | ~2017-04-25 | WRIGHTHP ---
[place], [place] PATIENT HISTORY AND PHYSICAL EXAM NAME: TOD HERNANDEZ [facility] #: [id number] UNIT #: [id number] ROOM: 408 DOCTOR: MARYCARMEN LOPEZ MD BIRTHDATE: [birth year] DOS: 04/25/2017 HISTORY OF PRESENT ILLNESS: The patient is a 47-year-old female with a past medical history of: 1. End-stage COPD and chronic respiratory failure, with oxygen dependence. 2. Morbid obesity. 3. Type 2 diabetes mellitus, insulin requiring and uncontrolled. 4. Chronic pain syndrome. 5. Adult failure to thrive. 6. Pancreatic cyst. 7. Generalized anxiety disorder. 8. Previous chronic osteomyelitis of the first toe of the left foot. The patient presented to the Emergency Department, sent over by Dr. Mai, the wound care specialist because she had a large blister on the right heel, which was increasing in size foe about a week with surrounding red area. The patient was seen in the Emergency Department and admitted with antibiotics. The patient was seen by Infectious Disease specialist, Dr. Metzger and recommended IV antibiotics for 6 weeks for suspected osteomyelitis from MRI of the right foot. The patient says she is overall otherwise feeling good. No new complaints. No chest pain. No shortness of breath. No GI or urinary symptoms. REVIEW OF SYSTEMS: LUNGS: No increasing shortness of breath or wheezing. GASTROINTESTINAL: No nausea, vomiting, diarrhea, constipation. CARDIOVASCULAR: No chest pain or palpitations. SOCIAL HISTORY: Denies smoking cigarettes, alcohol and drug abuse. FAMILY HISTORY: Noncontributory. ALLERGIES: Suspected allergies to MORPHINE. PHYSICAL EXAMINATION: GENERAL: Alert, oriented x 3, in no visible distress, morbidly obese, generalized weakness. HEENT AND NECK: Extraocular movements are intact. Sclerae are anicteric. Oral mucosa is moist and clean. No obvious facial weakness. Neck is supple without any lymphadenopathy. No thyromegaly. No JVD. No carotid arterial bruits. LUNGS: Clear to auscultation. No wheezing. No rhonchi. CARDIOVASCULAR SYSTEM: Heart rate is regular in rate and rhythm. S1 and S2 normally audible. No significant murmur or any other abnormal cardiac sounds. ABDOMEN: Soft, nontender. No obvious organomegaly. Bowel sounds are present. No obvious herniation. EXTREMITIES: Without significant cyanosis or edema. Warm to touch. The patient also has a blister measuring about 2 inches surrounding salazar area of the right heel. CENTRAL NERVOUS SYSTEM: Alert and oriented x 3. Cranial nerves II-XII are intact. Speech is normal. The patient is able to move all extremities. Normal muscle strength. Deep tendon reflexes are equal on both sides. Plantars were [place], [place] PATIENT HISTORY AND PHYSICAL EXAM NAME: TOD HERNANDEZ UNIT #: [id number] ROOM: [facility] DOCTOR: JESSICA FREDERICK,MARYCARMEN Newsome BIRTHDATE: [birth year] downgoing. IMPRESSION AND PLAN: 1. Right heel blister with suspected osteomyelitis on MRI seen by ID specialist, Dr. Metzger who is recommending 6 weeks of IV vancomycin. Once this is arranged, the patient can go home and take antibiotics at home. The patient already has a MediPort in place for this. 2. Type 2 diabetes mellitus, uncontrolled with noncompliance with diet. We will monitor blood sugars and treat accordingly. 3. Severe underlying chronic obstructive pulmonary disease with chronic respiratory failure, treated with oxygen and bronchodilators. 4. Type 2 diabetes mellitus, uncontrolled. Blood sugars will be monitored and treated. 5. Diabetic polyneuropathy and chronic lower extremity pain, treated with Percocet at home. 6. Generalized anxiety disorder. 7. Amputation of the first two toes of the left foot because of infection. MARYCARMEN LOPEZ MD CM:HISPHYS:PATIENT HISTORY AND PHYSICAL EXAMINATION 07 40 MARYCARMEN LOPEZ MD 04/26/171939 interface
--- NOTE | ~2017-04-25 | CON ---
[place], [place] REPORT OF CONSULTATION NAME: TOD HERNANDEZ UNIT #: [id number] ROOM: 408 DOCTOR: RD PHILLIP DPM BIRTHDATE: [birth year] DOS: SUBJECTIVE: The patient presents as 47-year-old female with chief complaint of an ulceration to the right heel. The patient was seen by Dr. Mai at the wound care center where she was noted to have an abscess to the heel and was admitted. The patient has current visit medical problems, open wound, right heel. Other visit active medical problems, acute kidney injury, pleuritic chest pain, pneumonia, shortness of breath. PAST MEDICAL HISTORY: Abdominal pain, acute asthma exacerbation, acute exacerbation of COPD with asthma, acute renal failure with tubular necrosis, asthma, avulsion fracture, right hip cellulitis, ____ line clotted, chest pain of unknown etiology, chronic back pain greater than 3 months' duration, chronic respiratory failure, contusion, COPD, [place] syndrome, dehydration, diabetes, diabetic foot ulcer, dyspnea on exertion, elbow dislocation, essential hypertension, fall with fracture of fifth metacarpal bone, left hand, fracture, left elbow, hypermagnesemia, hyperphosphatemia, hypoxemia, leukocytosis, major depression, recurrent, MRSA, nausea, vomiting, normocytic anemia, osteoarthritis, lumbar spine, osteomyelitis of left foot acute, pneumonia, reduction defect of left upper extremity, respiratory distress, respiratory failure acute, rib fracture, rib pain, sepsis, septic, olecranon bursitis, steroid dependent, type 2 diabetes with hyperglycemia, with Long-term current use of insulin, UTI, wheezing. SOCIAL HISTORY: Consumes alcohol occasionally, nonsmoker. Denies illicit drug use. FAMILY HISTORY: Mother of pancreatic cancer. PHYSICAL EXAMINATION: LOWER EXTREMITIES: Pedal pulses diminished. Decreased epicritic sensations. Painful ulceration to the right posterior plantar heel. The area was debrided. There were no signs of purulent drainage or foul odor at this time after it was debrided yesterday by Dr. Mai. The Ulceration is measuring approximately 2.9 x 4.8 x 0.1 cm. There is minimal localized erythema. There are no signs of deep sinus tract. No further signs of drainage or abscess. The patient has ulcerations to the second, third and fourth distal toes of the right foot that are full thickness with eschar. No signs of purulent drainage or foul odor. Localized erythema noted, but no signs of purulence to the toes. Results of the patient's MRI were consistent with ulceration, plantar margin of the plantar fat with evidence of throughout cellulitis and possible abscess. Several areas of cortical irregularity concerning for acute superficial osteomyelitis, plantar fasciitis. Although, clinically, the patient shows no signs of acute abscess, the ulceration shows no deep sinus tract, no signs of acute abscess. The patient's WBC is 8.5. The patient's sed rate is 38. The results of the radiographs revealed no radiographic evidence of osteomyelitis or acute osseous abnormality. The patient's arterial exam revealed no stenosis with arteriosclerosis and no evidence of hemodynamically significant peripheral vascular disease. [place], [place] REPORT OF CONSULTATION NAME: TOD HERNANDEZ UNIT #: [id number] ROOM: [facility] DOCTOR: RD PHILLIP DPM BIRTHDATE: [birth year] ASSESSMENT: Ulceration, right heel; diabetes. PLAN: Evaluation and management. I saw the patient earlier at noon and doing the dictation now at the office and just seeing the results of the MRI. We will discuss the case with Dr. Gage, but clinically I do not feel the patient needs to have surgical I and D of the foot as clinically it looked to be doing very well with current treatment plan. We will check the patient again tomorrow for followup and if there is any evidence of clinical signs of an abscess, surgical intervention could be performed, but at this time it is my recommendation to continue the IV antibiotics and local wound care along with offloading. RD PHILLIP DPM CM:CONSTR:REPORT OF CONSULTATION 1459 04/26/17 2237 interface
--- NOTE | ~2017-04-25 | CON ---
[place], [place] REPORT OF CONSULTATION NAME: TOD HERNANDEZ UNIT #: [id number] ROOM: 408 DOCTOR: TERRELL LAI M.D. BIRTHDATE: [birth year] DOS: 04/26/2017 WOUND CARE CONSULTATION HISTORY OF PRESENT ILLNESS: This is a 47-year-old female with a history of uncontrolled diabetes and multiple diabetic foot ulcers. She had been seen in the Wound Care Clinic for several months now. She did have a recent bout of osteomyelitis of the left foot and underwent a bone debridement at that time and that wound did heal; however, she presented to the wound clinic yesterday with a blistered area of her right heel. She said it started back on . She states she thinks what happened was that she had had some pain in the forefoot and was attempting to put more pressure on her heel in order to offload the forefoot and feels that the blister may have started from then, but she is not 100% sure. In any case, it started back on and it became progressively larger and more painful to the point where she came to the wound clinic and when we saw her, she had a noticeable blister that was drained and was full of pus that was fairly extensive. This area was debrided and there was quite a bit of tracking, not deep tracking; however, more along the complete plantar aspect of the heel. There was also an associated odor to it and erythema present. Due to that, the patient was recommended for inpatient admission. She was transferred to the ER and was admitted through the Emergency Room Department. Unfortunately, no imaging studies were done at all. The wound culture from yesterday is a heavy gram-positive cocci with many white blood cells so far. The patient is on IV vancomycin. She also has a history of severe pulmonary disease and is on chronic steroids. She takes 30 mg of prednisone daily. PAST MEDICAL HISTORY: Significant for the following: Osteomyelitis of the left foot, she is status post amputations of the first and second toe; type 2 diabetes, poorly controlled; morbid obesity; chronic pain; end-stage COPD, on oxygen; adult failure to thrive; pancreatic cyst and generalized anxiety disorder. There is a history of severe sleep apnea as well. She has had problems with respiratory failure in the past, history of GERD, hypertension, chronic intermittent sinus tachycardia and history of fracture of the wrist. She is status post ORIF of the metatarsal shaft on the right side, T and A. She has had multiple bronchoscopies, bilateral cataract extractions, D and C and right wrist surgery. SOCIAL HISTORY: She is a nonsmoker, denies alcohol use and is . FAMILY HISTORY: Really noncontributory at this time. MEDICATIONS: Her current medications are as follows: Her medications from home are DuoNeb q.4h., diltiazem 240 mg p.o. daily, Daliresp 500 mcg p.o. daily, cefuroxime 250 p.o. b.i.d., Xanax one tablet p.o. b.i.d., Lyrica 100 p.o. b.i.d. She is also on Fioricet one tablet p.o. t.i.d. p.r.n. for headache, lisinopril 40 p.o. daily, calcium 600 p.o. b.i.d., latanoprost one drop at bedtime, Percocet one tablet p.o. q.6 hours p.r.n., Prandin 1 mg p.o. t.i.d. for meals, Humalog sliding scale, albuterol 2 puffs q.6 hours p.r.n., Pepcid 40 mg p.o. daily, oxygen 2 L, prednisone 30 mg daily and Paxil 30 mg p.o. daily. [place], [place] REPORT OF CONSULTATION NAME: TOD HERNANDEZ UNIT #: [id number] ROOM: [facility] DOCTOR: TERRELL LAI M.D. BIRTHDATE: [birth year] ALLERGIES: SHE IS ALLERGIC TO PROCHLORPERAZINE, MORPHINE AND SULFAMETHOXAZOLE WHICH CAUSES NAUSEA. REVIEW OF SYSTEMS: She still has pain and discomfort mostly on the lateral part of the foot. No fevers or chills are noted. She says her breathing is stable and at baseline. She denies any nausea, vomiting, abdominal pains or diarrhea. OBJECTIVE: VITAL SIGNS: Temperature 98.6, pulse of 86, respirations 20 and blood pressure 102/69. GENERAL: This is a pleasant female, morbidly obese, in no acute distress. HEENT: Oropharynx is clear. Extraocular movements are intact. Sclerae are anicteric. LUNGS: Clear to auscultation anteriorly. CARDIOVASCULAR: S1, S2, regular rate and rhythm. ABDOMEN: Morbidly obese, soft and nontender. EXTREMITIES: She has positive pedal pulses. No calf tenderness. There is really no edema. She has a fairly large open area that this is after I debrided yesterday, but still has some surrounding erythema. It is on the right heel, approximately 4-5 cm in length x 6 cm in width and 0.2 cm in depth. There is an area that is actually not open, but it is near that, that is darkened area, presumed to be secondary to trauma. I do not appreciate any tracking from the open areas at this time. There is no more pus noted either. Her pedal pulses are palpable. LABORATORY DATA: Her white count was 12.5 when she was admitted and today it is 8.5, hemoglobin is 10 and platelets are 240. Chem-7 shows a BUN of 17, creatinine of 0.9, sodium 140, potassium 3.9 and glucose is 224. Lactic acid was 2.9 on admission and is now 2. Her LFTs are normal. She did have an elevated CRP and low albumin. There were no imaging studies done. ASSESSMENT AND PLAN: Diabetic foot ulcer, which likely was secondary to pressure, I think probably from her trying to alleviate some discomfort from the forefoot. I just got this stat x-ray done and there is no evidence of osteomyelitis. She had a very large abscess that was drained. However, due to the extent of the abscess, I would like to have Podiatry's opinion as well. To see if any further debridement needs to be done, I went ahead and took the liberty to order an MRI as well as arterial ultrasounds too. Cultures should be followed. I will go ahead and write for Silvadene for now off for the open area and dressings to be changed daily and offloading the area as much as possible. This patient unfortunately is not a candidate for hyperbaric oxygen due to her pulmonary issues. Once medically stable, the patient may follow up in the Wound Clinic. [place], [place] REPORT OF CONSULTATION NAME: TOD HERNANDEZ UNIT #: [id number] ROOM: [facility] DOCTOR: TERRELL LAI M.D. BIRTHDATE: [birth year] TERRELL LAI MD CM:CONSTR:REPORT OF CONSULTATION 1048 04/27/17 1049 interface
--- NOTE | ~2017-04-25 | DS ---
[place], [place] DISCHARGE SUMMARY NAME: TOD HERNANDEZ UNIT #: [id number] ROOM: 408 DOCTOR: MARYCARMEN LOPEZ MD BIRTHDATE: [birth year] DOS: 05/02/2017 DISCHARGE DIAGNOSES: 1. Blood culture positive for fungal elements, the patient being treated with micafungin by ID. 2. MRSA positive osteomyelitis of the right heel, being treated with doxycycline. EBONIE negative for endocarditis. 3. Morbid obesity and adult failure to thrive with generalized weakness. 4. Chronic obstructive pulmonary disease with chronic respiratory failure and oxygen dependence. 5. Diabetic polyneuropathy. 6. Amputation of the first toe of the left foot for previous infection. 7. Generalized anxiety disorder. 8. History of pancreatic cyst in the past. 9. Chronic pain syndrome. 1. The patient presented with a blister and cellulitis involving the right heel with increasing pain. The patient was admitted and the patient was seen by Dr. Metzger, the ID specialist and was treated with IV vancomycin and is being sent home on oral doxycycline as directed by Dr. Metzger. 2. The patient grew positive fungal blood cultures for which she was suspected to have endocarditis, which was ruled out with a EBONIE by Dr. Vera and following this, the patient was started on micafungin. The patient to complete 2 weeks of IV treatment with this medication at home, which has been arranged by case management and long term care social worker. 3. Benign essential hypertension with controlled blood pressures with treatment. 4. Type 2 diabetes mellitus, uncontrolled, insulin-requiring, related to poor compliance with diet and treatment and obesity. Blood sugars are monitored and treated. 5. Chronic respiratory failure with advanced end-stage chronic obstructive pulmonary disease and oxygen dependence. The patient on bronchodilators. 6. Generalized anxiety disorder, being treated and controlled. DISCHARGE MANAGEMENT: Daliresp 500 mcg daily, lisinopril 40 mg a day, Pepcid 40 mg a day, diltiazem CD 240 mg a day, Prandin 1 mg with meals, latanoprost eyedrops, trazodone 50 mg at bedtime p.r.n. for sleep, doxycycline 100 mg b.i.d. as directed by Infectious Diseases, micafungin 50 mg daily for 2 weeks, Lyrica 50 mg b.i.d. The patient to follow with the wound center and for doctors and infectious disease specialist and to see her PCP, Dr. Gonzalez within a week. [place], [place] DISCHARGE SUMMARY NAME: TOD HERNANDEZ UNIT #: [id number] ROOM: [facility] DOCTOR: MARYCARMEN LOPEZ MD BIRTHDATE: [birth year] MARYCARMEN LOPEZ MD CM:DISCHBEATRIZ [id number] MARYCARMEN LOPEZ MD 05/03/17 0809 interface
--- NOTE | ~2017-04-25 | PR ---
[place], [place] PROGRESS NOTE [id number] UNIT #: [id number] ROOM: 408 DOCTOR: RD PHILLIP DPM BIRTHDATE: [birth year] DOS: 05/01/2017 SUBJECTIVE: The patient was seen for followup of ulceration, plantar right heel. The patient still has some discomfort to the area. OBJECTIVE: There are no signs of localized erythema, no signs of deep sinus tract, no signs of abscess. Previous I and D site granulating well. Results of ultrasound to the area revealed no mass or fluid collection to the heel noted. ASSESSMENT: Ulceration post-abscess, right heel. PLAN: Evaluation and management discussed with the patient. I still do not think surgical intervention to the bone is warranted at this time. The patient is healing well. Antibiotics will continue per Infectious Disease. If any change to the clinical site noted, we can perform a deep incision and drainage with bone biopsy if warranted, but at this time, there are no signs of accumulation of abscess noted on the ultrasound and the patient can continue with IV antibiotic treatment and local wound care. RD PHILLIP DPM CM:ARTI [id number]ILLIP DPM 05/01/17 1407 interface
--- NOTE | ~2017-04-25 | O ---
[place], [place] OPERATIVE NOTE NAME: TOD HERNANDEZ UNIT #: [id number] ROOM: 408 DOCTOR: ALEX SANCHEZ MD BIRTHDATE: [birth year] DOS: 04/28/2017 PREOPERATIVE DIAGNOSIS: Catheter sepsis due to infected right subclavian Port-A-Cath. POSTOPERATIVE DIAGNOSIS: Catheter sepsis due to infected right subclavian Port-A-Cath. PROCEDURE: 1. Removal of right subclavian Port-A-Cath. 2. Insertion of an 18-gauge right external jugular IV. SURGEON: Alex Sanchez M.D. ANESTHESIA: MAC. ESTIMATED BLOOD LOSS: 5 mL. COMPLICATIONS: None. INDICATIONS: This patient is a 47-year-old morbidly obese white female who was admitted with sepsis, presumed to be due to a longstanding indwelling Port-A-Cath. She was brought for removal of the port today due to having positive blood cultures. DESCRIPTION OF PROCEDURE: The patient was placed on operating table in supine position. After administration of adequate sedation, the right-sided chest and neck were prepped and draped in sterile fashion. The port was barely palpable in the upper right chest wall and due to the patient's body habitus, it was decided to make the incision directly over the port as opposed to going back through her previous surgical site. A 1% plain lidocaine was then used to anesthetize the skin overlying the port, where an elliptical incision was made directly overlying the port. Cautery was then used to excise the skin and subcutaneous tissue in this area. We continued dissection through the subcutaneous tissues using the cautery, then exposed the port capsule, which was then incised with the cautery as well. Blunt dissection was then used to mobilize the port from its investing pseudocapsule and the cautery was then further used to excise the investing fibrinous sheath overlying the catheter. Thereby, fully mobilizing both the port and catheter, which were then removed in toto without difficulty. Pressure was held at the subclavian insertion site of the catheter for 5 minutes. The pseudocapsule lining the wound was then excised using the cautery. Hemostasis was ensured using the cautery as well. At that point, the wound was then copiously irrigated with warm saline and after again ensuring hemostasis with the cautery, the wound was closed in layers using interrupted 3-0 Vicryl sutures for the subcutaneous tissue and the skin was closed with a running 4-0 Monocryl subcuticular stitch, following which skin glue was then applied. Of note, the patient has a very tenuous 22-gauge IV in her arm, therefore an 18-gauge IV Angiocath was inserted at the right external jugular site without difficulty with good flow obtained. The patient tolerated these procedures well and was taken to PACU in stable condition. All tape, [place], [place] OPERATIVE NOTE NAME: TOD HERNANDEZ UNIT #: [id number] ROOM: [facility] DOCTOR: ALEX SANCHEZ MD BIRTHDATE: [birth year] needle, sponge, and instrument counts were correct. ALEX SANCHEZ MD CM:OPRECORD:OPERATIVE NOTE [id number] ALEX SANCHEZ MD 04/28/17 1310 interface
--- NOTE | ~2017-04-25 | PR ---
[place], [place] PROGRESS NOTE NAME: TOD HERNANDEZ UNIT #: [id number] ROOM: 408 DOCTOR: MARYCARMEN LOPEZ MD BIRTHDATE: [birth year] DOS: 04/27/2017 SUBJECTIVE: The patient continues to be at the hospital. She has no new complaints. OBJECTIVE: VITAL SIGNS: Blood pressure 129/58, heart rate 83 beats per minute, breathing 16 times per minute, temperature 98 degrees Fahrenheit. GENERAL: The patient with obesity, generalized weakness and blister at the right heel. IMPRESSION: 1. The patient with suspected osteomyelitis on MRI of the right heel, recommended IV vancomycin for 6 weeks. Blood cultures growing budding yeast, possible infection of the MediPort which needs to be removed as discussed with Dr. Metzger, the ID specialist, Dr. Kenney is being consulted. 2. Obesity and adult failure to thrive with generalized weakness. Physical therapy has been consulted. 3. Severe underlying chronic obstructive pulmonary disease with chronic respiratory failure and oxygen dependence, treated with bronchodilators. 4. Type 2 diabetes mellitus, uncontrolled with noncompliance with diet, but sugars are being monitored and treated. 5. Diabetic polyneuropathy with chronic lower extremity pains, treated with Percocet, which has been continued. 6. Amputation of the first toe of the left foot because of infection in the past. MARYCARMEN LOPEZ MD CM:PNTRANS [phone] MARYCARMEN LOPEZ MD 04/28/171 interface
[~2017-04-25 14:30] MED LIST changes: +CEFUROXIME AXE250 MG PO; +HUMALOG100 U/ML SC; +LASIX20 MG PO; +METFORMIN500 MG PO
[2017-04-25 14:38] VITALS: BP 90/37
[2017-04-25 14:54] VITALS: BP 120/80
[2017-04-25 15:28] LABS: BASO % 0.3 % (0.0-1.0); EOS # 0.1 10*3/uL (0.0-0.4); EOS % 0.4 % (1.0-4.0); HEMATOCRIT 35.7 % (37.0-47.0); HEMOGLOBIN 10.7 g/dl (12.0-16.0); LYMPH # 3.2 10*3/uL (1.3-4.4); LYMPH % 25.3 % (27.0-41.0); MEAN CELL VOLUME 90.6 fl (81.0-99.0); MEAN CORPUSCULAR HGB 27.2 pg (27.0-31.0); MEAN PLATELET VOLUME 10.4 fl (9.6-12.3); MONO # 0.6 10*3/uL (0.1-1.0); MONO % 4.7 % (3.0-9.0); NEUT # 8.3 10*3/uL (2.3-7.9); NEUT % 66.9 % (47.0-73.0); PLATELET COUNT AUTOMATED 296 10*3/uL (130-400); RED BLOOD COUNT 3.94 10*6/uL (4.10-5.10); RED CELL DISTRI WIDTH 15.8 % (0-14.5); WHITE BLOOD COUNT 12.5 10*3/uL (4.8-10.8)
[2017-04-25 15:36] LABS: INTERNATIONAL NORM RATIO 0.9 (2.0-3.5)
[2017-04-25 15:46] LABS: ALBUMIN 2.7 gm/dl (3.1-4.5); ALKALINE PHOSPHATASE 91 U/L (45-117); BUN 17 mg/dl (7-24); CHLORIDE 103 mmol/L (98-107); POTASSIUM 3.9 mmol/L (3.5-5.1); SGOT/AST 5 IU/L (3-35); SGPT/ALT 14 U/L (12-78); SODIUM 140 mmol/L (136-145); TOTAL PROTEIN 6.5 gm/dL (6.4-8.2)
[2017-04-25 15:50] LABS: TROPONIN I < 0.015 ng/ml (<0.045)
[2017-04-25 16:00] VITALS: BP 120/92
--- NOTE | 2017-04-25 19:09 | NUR ---
DRESSING APPLIED TO THE WOUND
[2017-04-25 20:00] VITALS: BP 120/92
--- NOTE | 2017-04-25 20:00 | NUR ---
Time: 1999 A 47 year old FEMALE admitted to 4E under services of DR. JESSICA FREDERICK,MARYCARMEN Flynn Pt. arrived via stretcher from ER. Chief complaint: OPEN R FOOT WOUNDS. JEAN PAUL OROZCO
--- NOTE | 2017-04-25 20:00 | NUR ---
Time: 1999 A 47 year old FEMALE admitted to under services of DR. JESSICA FREDERICK,MARYCARMEN Flynn Pt. arrived via stretcher from [place]. Chief complaint: OPEN WOUNDS R HEEL. JEAN PAUL OROZCO
--- NOTE | 2017-04-25 20:36 | NUR ---
SPOKE TO AT THIS TIME. AWARE THAT PATIENT IS ON FLOOR. DISCUSSED INSULIN PUMP, MEDIPORT, AND PATIENT'S REQUEST FOR DEMEROL AND FOR SOMETHING TO HELP HER SLEEP. NEW ORDERS RECEIVED.
--- NOTE | 2017-04-25 20:46 | NUR ---
'S ANSWERING SERVICE CALLED AT THIS TIME REGARDING CONSULT.
--- NOTE | 2017-04-25 20:59 | NUR ---
SPOKE WITH AT THIS TIME REGARDING CONSULT. DISCUSSED PATIENT'S LABS/VITALS, OTHER PERTINENT DEMOGRAPHICS. ALSO AWARE THAT NO XRAYS/IMAGING STUDIES HAVE BEEN TAKEN THUS FAR. INSTRUCTED TO CONSULT INFECTIOUS DISEASE. STATES SOMEONE WILL BE IN TOMORROW TO SEE HER.
--- NOTE | 2017-04-25 21:05 | NUR ---
'S ANSWERING SERVICE CALLED AT THIS TIME.
--- NOTE | 2017-04-25 21:34 | NUR ---
PATIENT MEDICATED WITH PO PERCOCET PER PRN ORDER AT THIS TIME IN PREPARATION FOR WOUND DRESSING CHANGE TO RIGHT HEEL. PATIENT STATES SHE EXPERIENCES PAIN ON THE SIDE OF THE WOUND WHEN TOUCHED/DRESSED. WILL MONITOR EFFECTIVENESS.
--- NOTE | 2017-04-25 22:30 | NUR ---
PATIENT STATES EARLIER MEDICATION EFFECTIVE. PHOTOS TO BE TAKEN SHORTLY.
--- NOTE | 2017-04-25 22:45 | NUR ---
PHOTOS TAKEN OF WOUND TO R HEEL AT THIS TIME.
--- NOTE | 2017-04-25 23:00 | NUR ---
CALLED BACK AT THIS TIME REGARDING CONSULT. NEW ORDERS RECEIVED.
[2017-04-26] VITALS: BP 116/62
--- NOTE | 2017-04-26 00:46 | NUR ---
PT MEDICATED WITH PO TRAZODONE PER PRN ORDER TO HELP HER SLEEP. WILL MONITOR EFFECTIVENESS. CALL LIGHT LEFT IN REACH.
--- NOTE | 2017-04-26 02:12 | NUR ---
EARLIER MEDICATION APPEARS EFFECTIVE. WILL CONTINUE TO MONITOR.
--- NOTE | 2017-04-26 04:12 | NUR ---
PATIENT ASLEEP IN BED AT THIS TIME. RESPIRATIONS EASY. NO S/S OF DISTRESS NOTED. WILL MONITOR. CALL LIGHT IN REACH.
[2017-04-26 06:58] LABS: BASO % 0.4 % (0.0-1.0); EOS # 0.3 10*3/uL (0.0-0.4); EOS % 3.4 % (1.0-4.0); HEMATOCRIT 33.7 % (37.0-47.0); LYMPH # 1.8 10*3/uL (1.3-4.4); LYMPH % 20.7 % (27.0-41.0); MEAN CELL VOLUME 93.4 fl (81.0-99.0); MEAN CORPUSCULAR HGB 27.7 pg (27.0-31.0); MEAN CORPUSCULAR HGB CONC 29.7 g/dl (33.0-37.0); MEAN PLATELET VOLUME 10.4 fl (9.6-12.3); MONO # 0.6 10*3/uL (0.1-1.0); MONO % 7.6 % (3.0-9.0); NEUT # 5.6 10*3/uL (2.3-7.9); NEUT % 65.7 % (47.0-73.0); NUCLEATED RED BLOOD CELL 0.4 % (0.0-0.0); PLATELET COUNT AUTOMATED 240 10*3/uL (130-400); RED BLOOD COUNT 3.61 10*6/uL (4.10-5.10); RED CELL DISTRI WIDTH 16.1 % (0-14.5); WHITE BLOOD COUNT 8.5 10*3/uL (4.8-10.8)
[2017-04-26 08:00] VITALS: BP 102/69
--- NOTE | 2017-04-26 08:00 | NUR ---
Automobile Seat Cover Installer in to talk to patient. Patient states lives at [address] with HER . There are 1 steps in the home. Physician: DR CAPUTO Pharmacy: [facility] Home health services: NONE Patient's level of ADLs: MINIMAL ASSIST Patient has working utilities: YES DME: O2 FROM [facility] Follow-up physician's appointment after d/c: PREFERS TO MAKE HER OWN APPT Does patient want to access PORTAL?: Discharge plan HOME. KAYLEIGH CASTRO DISCUSSED POSSIBILITY OF NEEDING LONG-TERM IV ATB. STATES SHE WOULD DO THIS AT HOME. WILL DISCUSS [facility] WHEN WE HAVE MORE INFO.
--- NOTE | 2017-04-26 08:15 | NUR ---
Assessment completed. Veronica Rose Mary in and already saw pt and measued wounds. Veronica gave me a list of wounds and measurements to document in wound screen for pt, she also applied a nonadherant dressing. Pt is currently c/o pain to rt foot and rt hip. Medicated with percocet per prn order. See assessment.
--- NOTE | 2017-04-26 09:15 | NUR ---
States that percocet was effective.
--- NOTE | 2017-04-26 10:38 | NUR ---
PHYSICAL THERAPY PAtient sleepimng soundly at this time. Will check at a later date. Thank you for this referral. Amada Nguyen,PT
--- NOTE | 2017-04-26 10:41 | NUR ---
Advance Directive information given to Nan per her request. She will review information and let this social welfare administrator know if she needs assistance.
--- NOTE | 2017-04-26 12:19 | NUR ---
PHYSICAL THERAPY Ptient at testing at this time. Kalyan Nguyen,PT
--- NOTE | 2017-04-26 12:58 | NUR ---
TOD HERNANDEZ [id number] Please refer to the physician's history and physical for past medical history, comorbid conditions, and allergies. Diagnosis: OPEN WOUND OF RT HEEL Ricardo Score: 18,AT RISK WOUND DESCRIPTIONS: Location of the wound: right heel Type of wound: DFU with abscess per Dr. Mai's note Thickness: Full Size: 3.8cm x 5.7cm x 0.2cm Tunneling: none Undermining: none Sinus Tract: none Presence of Exudate: serosanguineous Amount: Moderate Color: Yellow, brown, red Odor: None Periwound Skin Appearance: Edema Wound edges: approximated Pain (associated with wound): tender to touch How does patient state this happened? patient stated it started last and kept getting worse. Location of the wound: right 5th toe Type of wound: DFU per wound care center Thickness: Partial Size: 0.4cm x 0.2cm x 0.1cm Tunneling: none Undermining: none Sinus Tract: none Presence of Exudate: none Amount: None Color: Red Odor: None Periwound Skin Appearance: Normal Wound edges: approximated Pain (associated with wound): none at time of assessment How does patient state this happened? pt stated its from how she walks. Location of the wound: right 4th toe Type of wound: DFU per wound care center Thickness: Partial Size: 0.1cm x 0.1cm x 0.1cm Tunneling: none Undermining: none Sinus Tract: none Presence of Exudate: none Amount: None Color: Red Odor: None Periwound Skin Appearance: Normal Wound edges: approximated Pain (associated with wound): none at time of assessment How does patient state this happened? pt stated its from how she walks. Location of the wound: right 3rd toe Type of wound: DFU per wound care center Thickness: Partial Size: 0.6 cm x 0.7cm x 0.1cm Tunneling: none Undermining: none Sinus Tract: none Presence of Exudate: none Amount: None Color: Red Odor: None Periwound Skin Appearance: Normal Wound edges: approximated Pain (associated with wound): none at time of assessment How does patient state this happened? pt stated its from how she walks. Location of the wound: right 2nd toe Type of wound: DFU per wound care center Thickness: Partial Size: 0.4 cm x 0.2cm x 0.1cm Tunneling: none Undermining: none Sinus Tract: none Presence of Exudate: none Amount: None Color: Red Odor: None Periwound Skin Appearance: Normal Wound edges: approximated Pain (associated with wound): none at time of assessment How does patient state this happened? pt stated its from how she walks. Location of the wound: left 4th toe Type of wound: DFU per wound care center Thickness: Partial Size: 0.4 cm x 0.3cm x 0.1cm Tunneling: none Undermining: none Sinus Tract: none Presence of Exudate: none Amount: None Color: Red Odor: None Periwound Skin Appearance: Normal Wound edges: approximated Pain (associated with wound): none at time of assessment How does patient state this happened? pt stated its from how she walks. Surface the patient is resting on: Isoflex SKIN PREVENTION RECOMMENDATION: 1. Pressure redistribution support surface as appropriate 2. Elevate heels 3. Remove boots/TEDS every shift and reapply 4. Head of bed 30 degrees as tolerated 5. Assess nutrition and hydration 6. Manage moisture 7. Avoid the use of containment devices while in bed 8. Use absorptive products on surfaces limit layers of linens on bed 9. Turn and reposition every 1-2 hours in bed and every 1 hour in chair as tolerated 10. Weight shifts every 15 minutes while up in chair 11. Offloading with pillows or device to keep heels elevated off bed 12. Monitor skin at least every shift 13. Inspect under medical devices twice a day WOUND TREATMENT RECOMMENDATIONS: Consult Dr. Mai. Consult ID Consult podiatry.
[2017-04-26 16:00] VITALS: BP 126/43
--- NOTE | 2017-04-26 16:10 | NUR ---
Alert and oriented x3. Lungs diminished and clear. Dressing dry and intact to rt foot with heel raiser intact to rt foot. C/o pain to rt foot and rt hip, medicated with percocet per prn order and pt request for pain medication. Pt states her blood sugar was 154 and she gave herself a bolus via insulin pump.
[2017-04-26] MEDS ORDERED: VANCOMYCIN2 GM/250 M IV (18:30)
--- NOTE | 2017-04-26 19:42 | NUR ---
PATIENT SITTING UP IN BED WATCHING TV AND PLAYING ON PHONE. NO NEEDS MADE AT THIS TIME. BED IN LOWEST POSITION, CALL LIGHT IN REACH
--- NOTE | 2017-04-26 22:50 | NUR ---
PATIENT MEDICATED WITH PRN PERCOCET FOR C/O BACK PAIN
--- NOTE | 2017-04-26 23:06 | NUR ---
24 HR chart check completed.
[2017-04-27] VITALS: BP 129/57
--- NOTE | 2017-04-27 02:52 | NUR ---
PATIENT SITTING UP IN BED WATCHING TV. NO NEEDS MADE, BED IN LOWEST POSITION, CALL LIGHT IN REACH
--- NOTE | 2017-04-27 03:50 | NUR ---
DR LOPEZ AWARE OF POSITIVE BLOOD CULTURE BUDDING YEAST. STATES ID CAN HANDLE IT
--- NOTE | 2017-04-27 03:55 | NUR ---
DR KNIGHT ANSWERING SERVICE AWARE OF CIRITICAL BLOOD CULTURE RESULT. STATES THEY WILL SEND IT OVER
--- NOTE | 2017-04-27 04:00 | NUR ---
DR JACOB AWARE OF BLOOD CULTURE. ORDER TAKEN
--- NOTE | 2017-04-27 05:07 | NUR ---
PATIENT MEDICATED WITH PRN PERCOCET FOR HIP PAIN RATED 6/10 ON A 0/10 PAIN SCALE
--- NOTE | 2017-04-27 05:10 | NUR ---
BG 172 AND BOLUS INSULIN 1.9 UNITS PER PATIENT
[2017-04-27 06:09] LABS: HEMATOCRIT 33.4 % (37.0-47.0); HEMOGLOBIN 10.1 g/dl (12.0-16.0); MEAN CELL VOLUME 90.5 fl (81.0-99.0); MEAN CORPUSCULAR HGB 27.4 pg (27.0-31.0); MEAN CORPUSCULAR HGB CONC 30.2 g/dl (33.0-37.0); PLATELET COUNT AUTOMATED 267 10*3/uL (130-400); RED BLOOD COUNT 3.69 10*6/uL (4.10-5.10); RED CELL DISTRI WIDTH 16.3 % (0-14.5); WHITE BLOOD COUNT 8.1 10*3/uL (4.8-10.8)
[2017-04-27 06:44] LABS: PLATELET SUFFICIENCY NORMAL (NORMAL); TOTAL CELLS COUNTED 100 #CELLS
[2017-04-27 08:00] VITALS: BP 144/47
[2017-04-27 08:26] LABS: CREATININE 0.87 mg/dL (0.55-1.02)
--- NOTE | 2017-04-27 08:35 | NUR ---
PT WANTS HOME IV ATB WITH [facility] AND [facility]. SCRIPT AND INFO FAXED TO [facility] EARLIER THIS AM. SPOKE WITH [place] THERE AND PT WILL HAVE NO COPAY. MEDS WILL BE DELIVERED LATER TODAY. ORDER AND PAPERWORK FAXED TO [facility]. PER LOYDA THERE, THEY WILL SEE PT LATER TODAY AND PT CAN GIVE HER 2AM DOSE SHE HAS DONE THIS IN PAST. PT STATES SHE IS HOMEBOUND. NURSE INFORMED PT IS ALL SET FOR DC TODAY AND HOME IV ATB [facility].
--- NOTE | 2017-04-27 09:54 | NUR ---
Nutritional Support Services Note: Appetite is good for meals. She states she follows a no sweets diet at home. Does not want any handouts. Encouraged protein intake at every meal to help promote healing. Pt to be discharged home today- no other nutrition intervention needed at this time. Gloria Winn
--- NOTE | 2017-04-27 10:46 | NUR ---
PHYSICAL THERAPY PAtient to be discharged to home this date. Thank you for this referral. Amada beckett,PT
--- NOTE | 2017-04-27 11:46 | NUR ---
Medicated with percocet per prn order for complaints of pain to rt foot and rt hip.
--- NOTE | 2017-04-27 11:48 | NUR ---
BSG was 202, she gave 3.1 units of insulin bolus via insulin pump.
--- NOTE | 2017-04-27 11:55 | NUR ---
Dr. Gage in and examined pt. Removed dressing and examined wound.
--- NOTE | 2017-04-27 12:10 | NUR ---
Dressing reapplied at this time per orders.
--- NOTE | 2017-04-27 12:56 | NUR ---
PT NOT BEING DC TODAY. [facility] NOTIFIED.
--- NOTE | 2017-04-27 13:19 | NUR ---
DR. KWOK notified of consult. Requested to keep pt NPO past midnight tonight.
--- NOTE | 2017-04-27 13:21 | NUR ---
Spoke with Lesvia at [facility]. Notified of new consult and reason for consult. States she will notify the physican.
--- NOTE | 2017-04-27 14:20 | NUR ---
Spoke with Imtiaz in surgery regarding order for consult for Dr. Molina for mediport removal and that Dr. Molina ordered for pt to be NPO past midnight.
--- NOTE | 2017-04-27 15:01 | NUR ---
Dr. Vera here and examined pt. Requested EKG for this pt as pt has not had one.
[2017-04-27 16:00] VITALS: BP 129/58
[2017-04-28] VITALS: BP 118/55
--- NOTE | 2017-04-28 05:01 | NUR ---
24 HR chart check completed.
[2017-04-28 06:20] LABS: BASO % 0.3 % (0.0-1.0); EOS # 0.2 10*3/uL (0.0-0.4); EOS % 1.8 % (1.0-4.0); HEMATOCRIT 31.9 % (37.0-47.0); HEMOGLOBIN 9.5 g/dl (12.0-16.0); LYMPH # 3.1 10*3/uL (1.3-4.4); LYMPH % 31.3 % (27.0-41.0); MEAN CELL VOLUME 89.4 fl (81.0-99.0); MEAN CORPUSCULAR HGB 26.6 pg (27.0-31.0); MEAN CORPUSCULAR HGB CONC 29.8 g/dl (33.0-37.0); MONO # 0.8 10*3/uL (0.1-1.0); MONO % 7.5 % (3.0-9.0); NEUT # 5.7 10*3/uL (2.3-7.9); NEUT % 56.7 % (47.0-73.0); PLATELET COUNT AUTOMATED 280 10*3/uL (130-400); RED BLOOD COUNT 3.57 10*6/uL (4.10-5.10); RED CELL DISTRI WIDTH 16.3 % (0-14.5)
[2017-04-28 08:00] VITALS: BP 104/69
--- NOTE | 2017-04-28 08:00 | NUR ---
IN BED RESTING QUIETLY. AWAKENS TO VOICE, ORIENTED X3, NO C/O. NO S/S OF DISTRESS. WILL CONT TO MONITOR. CALL LIGHT IN REACH. LABS REVIEWED. SEE ASSESS.
--- NOTE | 2017-04-28 08:53 | NUR ---
SPOKE TO DR URRUTIA WILL REMOVED MEDIPORT TODAY AT 11AM
[2017-04-28 12:07] VITALS: BP 130/76
[2017-04-28 12:20] VITALS: BP 127/77
[2017-04-28 12:36] VITALS: BP 152/77
--- NOTE | 2017-04-28 12:45 | NUR ---
PT RETURNED FROM SURGERY AFTER HAVING MEDIPORT REMOVED AT THIS TIME. STABLE. RIGHT IJ NOTED, WILL MONITOR. CALL LIGHT IN REACH. RESTING QUIETLY AT THIS TIME.
--- NOTE | 2017-04-28 15:59 | NUR ---
PERCOCET GIVEN AT THIS TIME FOR BACK AND FOOT OF 02/10. WILL CONT TO MONITOR. CALL LIGHT IN REACH.
[2017-04-28 16:00] VITALS: BP 105/51
--- NOTE | 2017-04-28 16:59 | NUR ---
PERCOCET EFF AT THIS TIME PT RESTING QUIETLY. WILL CONT TO MONITOR.
--- NOTE | 2017-04-28 18:40 | NUR ---
PT REFUSES SA TX
--- NOTE | 2017-04-28 20:46 | NUR ---
PATIENT LYING IN BEDN ALERT AND ORIENTED , VOICES NO COMPLAINTW. LUNGS CLEAR, ABD NON-TENDER, NORMOACTIVE BOWEL SOUNDS. PATIENT STATES THAT SHE BM TODAY. IV ANGIOCATH 24GA IN RIGHT AC AND 24 GA IN RIGHT IJ.
[2017-04-29] VITALS: BP 110/55; BP 137/55
--- NOTE | 2017-04-29 01:41 | NUR ---
MEDICATED WITH PRN PERCOCET FOR C/O FOOT PAIN. RATES 03/12. ALSO MEDICATED AT THIS TIME WITH PRN TRAZADONE FOR HELP TO SLEEP.
--- NOTE | 2017-04-29 02:20 | NUR ---
PAIN IS NOW A 3 0N A SCALE OF 1/10.
--- NOTE | 2017-04-29 03:26 | NUR ---
PATIENT RESTING IN BED, TALKING ON PHONE. VOICES NO COMPLAINTS. IV IN RIGHT ARM INTACT. IJ INTACT. OXYGEN INTACT, NO DISTRESS NOTED.
[2017-04-29 08:00] VITALS: BP 130/94
--- NOTE | 2017-04-29 09:05 | NUR ---
MEDICATED WITH ONE PERCOCET FOR COMPLAINTS OF BACK AND FOOT PAIN. RATES PAIN A 5 ON A PAIN SCALE OF 1-10.
--- NOTE | 2017-04-29 10:00 | NUR ---
VOICES THAT PERCOCET WAS EFFECTIVE FOR PAIN.
--- NOTE | 2017-04-29 11:30 | NUR ---
VERY DROWSY. UNABLE TO KEEP EYES OPEN. C-PAP PLACED ON.
[2017-04-29 16:00] VITALS: BP 129/67
--- NOTE | 2017-04-29 16:15 | NUR ---
MEDICATED WITH PERCOCET ORDERED FOR COMPLAINTS OF A HEADACHE AND RIGHT HIP PAIN. RATES PAIN A 7 ON A PAIN SCALE OF 1-10.
--- NOTE | 2017-04-29 20:04 | NUR ---
PATIENT SITTING IN BED WITH LEGS UNDER HER, CROSSED. +1 PITTING EDEMA NOTED TO LEGS. OXYGEN INTACT, VIA NC, REPIRATIONS EASY. IJ LINE INTACT, SECURED. PATIENT COMPLAINS OF CHRONIC RIGHT HIP PAIN. PATIENT IS AWARE THAT SHE IS TO BE NPO AT MIDNIGHT.
[2017-04-30] VITALS (9 sets, daily range): BP systolic 94–145; BP diastolic 41–79
--- NOTE | 2017-04-30 01:37 | NUR ---
PATIENT REQUESTED PAIN MEDICATION FOR PAIN IN HER BACK, 03/12. PATIENT ALSO REQUESTED A TRAZODONE TO HELP HER TO SLEEP, GIVEN PER ORDER.
[2017-04-30 06:56] LABS: CREATININE 0.83 mg/dL (0.55-1.02)
--- NOTE | 2017-04-30 07:30 | NUR ---
24 HR chart check completed.
--- NOTE | 2017-04-30 13:00 | NUR ---
PT TAKEN TO OR FOR EBONIE.
--- NOTE | 2017-04-30 13:07 | NUR ---
PHYSICAL THERAPY PAtient at surgery at this time. Thank you for this referral. Amada Nguyen,PT
--- NOTE | 2017-04-30 13:10 | NUR ---
PT GIVEN STAT TX BEFORE HEADING BACK FOR SURGERY
--- NOTE | 2017-04-30 17:48 | NUR ---
MEDICATED WITH DEMEROL 25MG IV FOR C/O R FOOT PAIN. PT IS NOW RESTING WITH NO C/O ANY. MED EFFECTIVE.
--- NOTE | 2017-04-30 19:48 | NUR ---
DR. CAPUTO NOTIFIED OF PT C/O PAIN WITH EXPIRATION AND SOB WITH EXERTION WELL NEW ONSET OF FAINT CRACKLES IN POST BASES. N.O. LEANN FOR CXR IN AM.
--- NOTE | 2017-04-30 22:30 | NUR ---
PT CONT. TO C/O PAIN TO RT FOOT/HIP/BACK/NECK. ADVISED PT THAT IT IS TOO SOON FOR DEMEROL. PT ACKNOWLEDGES.
[2017-05-01] VITALS: BP 127/87
--- NOTE | 2017-05-01 | NUR ---
PT STATES DEMEROL WAS EFFECTIVE FOR PAIN RELIEF. RESTING QUIETLY IN BED.
--- NOTE | 2017-05-01 03:10 | NUR ---
PT MEDICATED WITH PRN TRAZADONE TO PROMOTE SLEEP. PT ENCOURAGED TO TURN LIGHTS/TV OFF..
--- NOTE | 2017-05-01 04:00 | NUR ---
PT REMAINS AWAKE. PRN TRAZADONE INEFFECTIVE. PT TEACHING GIVEN IN RE TO RESTING FOR HEALING. PT AGREES BUT STATES UNABLE TO FALL ASLEEP. LIGHTS TURNED OFF. ENCOURAGED PT TO TURN TV AND PHONE OFF.
--- NOTE | 2017-05-01 07:27 | NUR ---
ADVERTISING CONSULTANT VS. STATES SHE IS GOING TO TALK TO DR CAPUTO TODAY ABOUT MAYBE GOING TO [facility]. FOR PICC TODAY.
--- NOTE | 2017-05-01 07:36 | NUR ---
SURGERY CALLED AND STATED DUE TO HISTORY OF FAILED PICC LINE ATTEMPTS BY NURSES, WILL BE INSERTING PICC LINE TODAY.
[2017-05-01 08:00] VITALS: BP 150/61
--- NOTE | 2017-05-01 08:52 | NUR ---
NOTIFIED REGARDING NO IV SITE AT THIS TIME. AWAITING PICC LINE INSERTION.
--- NOTE | 2017-05-01 10:10 | NUR ---
PATIENT OFF FLOOR FOR SCHEDULED PICC LINE INSERTION.
--- NOTE | 2017-05-01 10:52 | NUR ---
PHYSICAL THERAPY PAtient at surgery at this time. Amada beckett,PT
--- NOTE | 2017-05-01 11:29 | NUR ---
PATIENT RETURNED TO ROOM AT THIS TIME.
--- NOTE | 2017-05-01 11:35 | NUR ---
IR CALLED AT THIS TIME TO SEE IF PICC LINE NEEDED A CXR TO CONFIRM PLACEMENT. PER IR CXR IS NOT NEEDED, PLACEMENT WAS CONFIRMED BY DURING PROCEDURE.
--- NOTE | 2017-05-01 11:56 | NUR ---
PT MEDICATED WITH IV DEMEROL SLOWLY PER PRN ORDER FOR C/O RIGHT HIP PAIN. RATES PAIN 05/13. WILL MONITOR EFFECTIVENESS.
--- NOTE | 2017-05-01 12:12 | NUR ---
barge worker met with Nan to discuss recommendation for LTAC, She stated that she does not want transferred to [facility] as it would be too far for her family to travel-she stated most of them work in the [place] area but would consider [facility] located in [facility]. This long term care social worker will make referral to [facility]. Will continue to follow.
--- NOTE | 2017-05-01 12:35 | NUR ---
EARLIER MEDICATION EFFECTIVE PER PT.
--- NOTE | 2017-05-01 12:49 | NUR ---
Referred Nan to [facility]-spoke to agatha Hammond. Medical information faxed.
[2017-05-01] MEDS ORDERED: MYCAMINE100 MG IV (14:57)
--- NOTE | 2017-05-01 14:59 | NUR ---
IN TO SEE PATIENT.
--- NOTE | 2017-05-01 15:16 | NUR ---
per Manish from [facility]-patient has benefits for LTAC-she has met her deductible and out of pocket copay. She is appropriate for LTAC and is accepted. He will work on obtaining authorization from [employer].
[2017-05-01 16:00] VITALS: BP 151/70
--- NOTE | 2017-05-01 17:23 | NUR ---
PT REQUESTED AND RECEIVED PO PERCOCET PER PRN ORDER FOR C/O HIP/FOOT PAIN. CHRONIC PAIN PER PT. WILL MONITOR EFFECTIVENESS. CALL LIGHT WITHIN REACH.
--- NOTE | 2017-05-01 18:39 | NUR ---
PERCOCET RELIEVING PAIN PER PT.
--- NOTE | 2017-05-01 18:39 | NUR ---
IN TO SEE PATIENT.
--- NOTE | 2017-05-01 19:51 | NUR ---
PT STATES DEMEROL EFFECTIVE AT 1930 FOR "PAIN ON EVERYTHING ON MY RIGHT SIDE...PETERS PETERS PETERS!"
[2017-05-01 20:00] VITALS: BP 135/72
[2017-05-02] VITALS: BP 134/65
--- NOTE | 2017-05-02 00:30 | NUR ---
RESTING IN BED WATCHING TV. RESPIRATIONS EASY. LUNGS DIMINISHED. PULSE OX 96% 3L. +2 BLE EDEMA NOTED. DRESSING MAINTAINED TO RIGHT HEEL. PICC LINE INTACT, SITE BLOODY BUT NOT SATURATED. CALL LIGHT WITHIN REACH. NO VOICED COMPLAINTS
--- NOTE | 2017-05-02 01:25 | NUR ---
REQUESTED AND RECEIVED DEMEROL IV PER PRN ORDER FOR COMPLAINTS OF RIGHT FOOT PAIN RATING A 6. ALSO MEDICATED WITH TRAZADONE PER REQUEST TO ASSIST WITH SLEEP. CALL LIGHT WITHIN REACH. WILL MONITOR FOR MEDICATION EFFECTIVENESS.
--- NOTE | 2017-05-02 03:00 | NUR ---
REMAINS AWAKE. STATES RELIEF FROM EARLIER DEMEROL. CALL LIGHT WITHIN REACH.
--- NOTE | 2017-05-02 06:30 | NUR ---
CONTINUES TO SLEEP WITH NO DISTRESS NOTED. RESPIRATIONS EASY. AM LABS DRAWN VIA RIGHT PICC, FLUSHED PER POLICY. CALL LIGHT WITHIN REACH
[2017-05-02 08:00] VITALS: BP 130/90
--- NOTE | 2017-05-02 08:47 | NUR ---
copy worker met with Nan this morning. She has decided that she wants to return home and will do the IV antibiotics at home. She requested the consult to [facility] to be canceled. WIll inform Ted. shelton for [facility].
--- NOTE | 2017-05-02 09:04 | NUR ---
PHYSICAL THERAPY PAtient requests no PT this date. Thank you for this referral. Amada Nguyen,PT
--- NOTE | 2017-05-02 10:20 | NUR ---
IV LEILANI BIGGS FOR C/O RT FOOT PAIN. RATES 8/10 ON PAIN SCALE. WILL MONITOR.
--- NOTE | 2017-05-02 10:52 | NUR ---
PT GOING HOME TODAY ON IV MICAFUNGIN 50MG IV DAILY X2 WEEKS. HAD DOSE THIA AM. INFO FAXED TO [facility]. SPOKE WITH ABHIJIT AND WILL RUN BENEFITS AND CALL ME BACK. AWARE OF DC TODAY AND MED TO START TOMORROW AM. SPOKE WITH LOYDA AT [facility] AND SET FOR START TOMORROW AM AAS WELL. WILL FAX SCRIPT TO [facility] WHEN I GET IT.
--- NOTE | 2017-05-02 11:30 | NUR ---
DEMEROL EFFECTIVE PER PT.
[2017-05-02 12:00] VITALS: BP 148/61
[2017-05-02] MEDS ORDERED: DOXYCYCLINE100 M3 PO (13:23)
--- NOTE | 2017-05-02 13:26 | NUR ---
SCRIPT FAXED TO [facility].
[2017-05-02 14:11] LABS: RESULT 1 Candida glabrata (.)
[2017-05-02 16:00] VITALS: BP 138/86
--- NOTE | 2017-05-02 18:00 | NUR ---
PT REFUSED DISCHARGE PHOTO'S.
--- NOTE | 2017-05-02 18:06 | NUR ---
[facility] Discharge instructions reviewed with patient/family. Patient receptive and verbalizes understanding. Follow-up care arranged. Written instructions given to patient/family. BRANDAN TENORIO
== END 2017-05-02 18:06 | disposition home or self-care (01) | DRG 314 ==
LOC: EDSTATUS 14:30 → ED 14:30 → 4E 17:20 → EDHOLD 17:20 → 4E 17:51
PROVIDERS: Internal Medicine Infectious Disease; Physician Assistant; ADMIT Internal Medicine
PROC: 5A09357 Assistance with Respiratory Ventilation, Less than 24 Consecutive Hours, Continuous Positive Airway Pressure (ICD-10-PCS; principal; 2017-04-26)
PROC: 05HP33Z Insertion of Infusion Device into Right External Jugular Vein, Percutaneous Approach (ICD-10-PCS; 2017-04-28)
PROC: 05PYX3Z Removal of Infusion Device from Upper Vein, External Approach (ICD-10-PCS; 2017-04-28)
PROC: B246ZZ4 Ultrasonography of Right and Left Heart, Transesophageal (ICD-10-PCS; 2017-04-30)
PROC: B548ZZA Ultrasonography of Superior Vena Cava, Guidance (ICD-10-PCS; 2017-05-01)
PROC: B5181ZA Fluoroscopy of Superior Vena Cava using Low Osmolar Contrast, Guidance (ICD-10-PCS; 2017-05-01)
PROC: 02HV33Z Insertion of Infusion Device into Superior Vena Cava, Percutaneous Approach (ICD-10-PCS; 2017-05-01)
DX: T80.212A Local infection due to central venous catheter, initial encounter (principal); A41.9 Sepsis, unspecified organism; J96.12 Chronic respiratory failure with hypercapnia; B49 Unspecified mycosis; E11.42 Type 2 diabetes mellitus with diabetic polyneuropathy; L03.115 Cellulitis of right lower limb; M86.171 Other acute osteomyelitis, right ankle and foot; L97.412 Non-pressure chronic ulcer of right heel and midfoot with fat layer exposed; F33.9 Major depressive disorder, recurrent, unspecified; L02.611 Cutaneous abscess of right foot; Z68.42 Body mass index [BMI] 45.0-49.9, adult; E11.69 Type 2 diabetes mellitus with other specified complication; E11.621 Type 2 diabetes mellitus with foot ulcer; B95.62 Methicillin resistant Staphylococcus aureus infection as the cause of diseases classified elsewhere; E66.01 Morbid (severe) obesity due to excess calories; F41.1 Generalized anxiety disorder; G89.4 Chronic pain syndrome; S91.301A Unspecified open wound, right foot, initial encounter; D64.9 Anemia, unspecified; M54.9 Dorsalgia, unspecified; R62.7 Adult failure to thrive; I10 Essential (primary) hypertension; E11.65 Type 2 diabetes mellitus with hyperglycemia; J44.9 Chronic obstructive pulmonary disease, unspecified; Z99.81 Dependence on supplemental oxygen; Z88.2 Allergy status to sulfonamides; Z88.8 Allergy status to other drugs, medicaments and biological substances; Z79.899 Other long term (current) drug therapy; Z82.49 Family history of ischemic heart disease and other diseases of the circulatory system; Z82.5 Family history of asthma and other chronic lower respiratory diseases; Z80.9 Family history of malignant neoplasm, unspecified

== ENCOUNTER 2017-05-05 17:00 | Emergency (ER) | payer BC, MEDICARE ==
[~2017-05-05] VITALS: Ht 160 cm; Wt 114.8 kg
[~2017-05-05 17:00] MED LIST changes: +DOXYCYCLINE100 M3 PO; +MYCAMINE100 MG IV; +VANCOMYCIN2 GM/250 M IV
[2017-05-05 17:12] VITALS: BP 100/60
== END 2017-05-05 18:16 | disposition home or self-care (01) ==
LOC: ED 17:00
DX: T82.898A Other specified complication of vascular prosthetic devices, implants and grafts, initial encounter (principal); Z88.8 Allergy status to other drugs, medicaments and biological substances; Z88.1 Allergy status to other antibiotic agents; Z88.6 Allergy status to analgesic agent; Z79.899 Other long term (current) drug therapy

== ENCOUNTER 2017-05-08 11:50 | Inpatient (IN) | payer BC, MEDICARE ==
[~2017-05-08] VITALS: Ht 157.4 cm; Wt 117.2 kg
--- NOTE | ~2017-05-08 | WRIGHTHP ---
[place], [place] PATIENT HISTORY AND PHYSICAL EXAM NAME: TOD HERNANDEZ UNIT #: [id number] ROOM: 512 DOCTOR: FRANCO CAPUTO MD BIRTHDATE: [birth year] DOS: 05/08/2017 HISTORY OF PRESENT ILLNESS: This patient was discharged from the hospital on May 03 on micafungin for positive fungal cultures in the blood. She came to the emergency room on May 05 with complaints that her IV access is not in place and that is starting to leak. The patient had x-ray, which showed that the PICC line was actually in the axillary area. They did heavily bandage the site and advised the patient to go home and try to use it again, but Sunday it fell out completely and she was unable to get any IV antibiotics at all either Sunday or Sunday. She called the office on Sunday and let us know about her concern and since she had positive Gail glabrata in the blood identified and completed on by the lab, I advised the patient to be admitted to the hospital for continued antifungals until the infectious disease can see her and clear her. We did try to place a PICC line as an outpatient, but was unable to do that since the OR staff was unable to place in and radiology was not available to place one either. PAST MEDICAL HISTORY: 1. Significant again for last hospital admission just 5 days ago with positive fungal culture. A MediPort was at that time removed. She also did undergo a EBONIE to make sure she did not have endocarditis. 2. 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 3. Adult failure to thrive. 4. Chronic obstructive lung disease. 5. Chronic respiratory failure. 6. Type 2 diabetes mellitus, poorly controlled. 7. Generalized anxiety disorder. 8. Chronic pain. 9. Diabetic polyneuropathy. 10. History of amputation of the first toe, left foot 11. History of pancreatic cyst. 12. Benign hypertension. MEDICATIONS: The patient is currently on are oxygen, DuoNeb, doxycycline 100 b.i.d., micafungin 500 IV daily, latanoprost eyedrops, Xanax 0.5 b.i.d., Fioricet 1 tablet t.i.d. p.r.n., calcium 600 twice a day, diltiazem 240 daily, Pepcid 40 daily, lisinopril 40 daily, Percocet 7.5 q.6, Paxil 30 daily, prednisone 30 daily, Lyrica 100 mg twice a day, Prandin 1 mg t.i.d., Daliresp 500 mcg daily, insulin pump at 2.2 units an hour, Silvadene for local application to right heel. SOCIAL HISTORY: Nonsmoker, does not use any alcohol. PHYSICAL EXAMINATION: GENERAL: She is awake and alert and oriented. VITAL SIGNS: Blood pressure is 156/69, pulse of 85, respirations 20, temperature 97.9. LUNGS: Clear. HEART: Regular. ABDOMEN: Obese, soft, nontender. [place], [place] PATIENT HISTORY AND PHYSICAL EXAM NAME: TOD HERNANDZE UNIT #: [id number] ROOM: [facility] DOCTOR: FRANCO CAPUTO MD BIRTHDATE: [birth year] EXTREMITIES: Without any edema. On the right heel, the wound is quite dry. There is no evidence of cellulitis. No redness, no tenderness, very scant drainage noticed from the wound. ASSESSMENT AND PLAN: 1. Positive fungal cultures of the blood with Gail glabrata. The patient is placed on micafungin again. ESR, CRP, CBC, basic all pending and repeat blood cultures were ordered and infectious disease has been consulted as regards to continuation of antibiotics because we are having trouble finding IV access for this patient. 2. Chronic obstructive pulmonary disease, stable without any exacerbations. 3. Type 2 diabetes mellitus, insulin-dependent, poorly controlled. Hemoglobin A1c will be ordered. Further adjustments in insulin will be made. FRANCO CAPUTO MD CM:HISPHYS:PATIENT HISTORY AND PHYSICAL EXAMINATION [id number] FRANCO CAPUTO MD 05/09/17 1053 interface
--- NOTE | ~2017-05-08 | PR ---
[place], [place] PROGRESS NOTE NAME: TOD HERNANDEZ UNIT #: [id number] ROOM: 512 DOCTOR: FRANCO CAPUTO MD BIRTHDATE: [birth year] DOS: 05/10/2017 SUBJECTIVE: The patient is about the same, does not have any new complaints. OBJECTIVE: VITAL SIGNS: Blood pressure is 130/74, pulse of 90, respirations 18, temperature 97.4. LUNGS: Clear. HEART: Regular. ABDOMEN: Obese. EXTREMITIES: No edema. ASSESSMENT AND PLAN: 1. Positive fungal culture with Gail glabrata. IV access was unavailable and the patient was off medications for 2 days. The patient was admitted. A peripheral IV was placed and IV was restarted. A PICC line was placed yesterday. The patient has tolerated the procedure. The plan is therefore to discharge to home on the IV antifungals. 2. Recent MRSA osteomyelitis. We will continue to stay on doxycycline. FRANCO CAPUTO MD CM:PNTRANS [id number] FRANCO CAPUTO MD 05/10/17 1556 interface
--- NOTE | ~2017-05-08 | CON ---
[place], [place] REPORT OF CONSULTATION NAME: TOD HERNANDEZ UNIT #: [id number] ROOM: 512 DOCTOR: MING NewsomeTERRELL BIRTHDATE: [birth year] DOS: 05/09/2017 HISTORY OF PRESENT ILLNESS: This is a 47-year-old female with poorly controlled diabetes and multiple medical problems who was recently admitted to the hospital approximately a week and a half ago for an abscess of her right heel. She at that time also had positive blood cultures for Gail and has been on IV antibiotics for this. She had a PICC line placed last admission; however, this PICC line apparently started to leak. She was unable to get her IV antibiotics on Sunday or Sunday. Due to this concern, the patient was admitted directly for further management regarding this. She also last week and a half ago did have an MRI that was suspicious for this possible acute superficial osteomyelitis noted. She was placed on oral doxycycline for this. This has been managed by Infectious Disease. She has been using Silvadene for wound care and Wound Care has been asked to see the patient for further evaluation of the wound. The patient has not been to the wound clinic since her just recent discharge. She states overall she has been feeling well. Her foot does not hurt at all. She has very minimal drainage coming from the wound, but overall it is healing quite nicely. It is not causing any pain. There are no fevers or chills noted. PAST MEDICAL HISTORY: Significant for: 1. Positive blood cultures for fungus. She had a MediPort at that time that was removed. She underwent a EBONIE to rule out endocarditis, which was negative. 2. Recent new diabetic foot ulcer and abscess of the right heel, possible early osteomyelitis, now on p.o. doxycycline. 3. History of adult failure to thrive. 4. COPD, severe. 5. Chronic respiratory failure. 6. Severe type 2 diabetes, poorly controlled. 7. Generalized anxiety disorder. 8. Chronic pain. 9. Diabetic polyneuropathy. 10. 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 11. History of pancreatic cyst. 12. Hypertension. 13. Multiple diabetic foot ulcers. 14. History of osteomyelitis in the past. HOME MEDICATIONS: Oxygen, DuoNeb, doxycycline 100 p.o. b.i.d., micafungin 500 IV daily, latanoprost eyedrops, Xanax 0.5 b.i.d., Fioricet one tablet t.i.d. p.r.n., calcium 600 twice a day, diltiazem 240 daily, Pepcid 40 mg daily, lisinopril 40 daily, Percocet 7.5-6 hours, Paxil 30 daily, prednisone 30 daily, Lyrica 100 twice a day, Prandin 1 mg t.i.d., Daliresp 500 mcg daily, insulin pump at 2.2 units an hour, Silvadene for the local application of the right heel. SOCIAL HISTORY: She is a nonsmoker and does not use any alcohol. REVIEW OF SYSTEMS: No fevers or chills. Breathing is at baseline. Denies any chest pain or GI complaints. [place], [place] REPORT OF CONSULTATION NAME: TOD HERNANDEZ UNIT #: [id number] ROOM: [facility] DOCTOR: TERRELL LAI M.D. BIRTHDATE: [birth year] PHYSICAL EXAMINATION: VITAL SIGNS: Temperature 97.4, pulse 84, respirations 20, blood pressure is 146/66. GENERAL: This is a female who appears much older than his stated age, pleasant and cooperative to examination, in no acute distress. NECK: No JVD. LUNGS: Fairly clear. Good inspiratory and expiratory effort. CARDIOVASCULAR: S1, S2, regular rate and rhythm. ABDOMEN: Morbidly obese and soft. EXTREMITIES: No edema. The right heel wound has epithelialized quite a bit. There is a lot of callus that is pretty thick and it is difficult to see open area at this time, although I do see the area where she has pointed to where the drainage has been coming from. She has dark areas size of a quarter that was present last week that is consistent with old blood and has not gotten any bigger, but overall it looks good. There is no tenderness and no active cellulitis. Due to the severe callus present and drainage, debridement was recommended. The patient was agreeable. She has had debridement before. She is quite aware of what it entails. Selective debridement was done at the bedside just to remove devitalized callus and there is still a slight open area present in the middle of the heel that is a fissure type wound presently. It is very small, I would say 0.7 -0.8 x 0.1-0.2 x 0.2 in depth that is very small, healing nicely. No sign of infection and the rest of the wound has epithelialized quite nicely. She does have a couple of dry areas that appeared to be scabbing over, those left alone. LABORATORY DATA: White count was 11.2, hemoglobin is 10, ESR is 37. The wound culture that was done last time she was here when the abscess was drained was significant for heavy gram-positive cocci, Staph aureus that was essentially pansensitive. ASSESSMENT AND PLAN: Healing diabetic foot ulcer that is stable. I would continue with the Silvadene for now for a small opened area that is still present and she seems to be responding well to this and a bulky dressing. She also has a few open areas of the second and third toes. Selective debridement done of the second toe as well just to remove some of the devitalized hyperkeratotic area. She can actually keep these covered with Silvadene as well for now and when she comes to the wound clinic. I would like to see if we can order a toe foam bandage for these areas to keep it protected from recurrent callus formation or Polymem viscus gel caps also would be helpful. We can order this when she comes to the wound clinic and I would suggest follow up in 1 week for this. Thank you for this consult. [place], [place] REPORT OF CONSULTATION NAME: TOD HERNANDEZ UNIT #: [id number] ROOM: 512 DOCTOR: TERRELL LAI M.D. BIRTHDATE: [birth year] TERRELL LAI MD CM:CONSTR:REPORT OF CONSULTATION 1146 05/10/17 0152 interface
[2017-05-08 12:10] VITALS: BP 152/79
[2017-05-08] MEDS ORDERED: MYCAMINE50 MG IV (12:54)
[2017-05-08] MEDS ORDERED: SILVADENE20 GM T (12:56)
[2017-05-08 16:00] VITALS: BP 156/81
[2017-05-08] MEDS ORDERED: SILVADENE,SSD C50 GM T (16:22)
[2017-05-09] VITALS: BP 156/69
[2017-05-09 08:00] VITALS: BP 146/66
[2017-05-09 08:40] LABS: BASO % 0.4 % (0.0-1.0); EOS # 0.3 10*3/uL (0.0-0.4); EOS % 2.8 % (1.0-4.0); LYMPH # 4.2 10*3/uL (1.3-4.4); LYMPH % 37.6 % (27.0-41.0); MEAN CELL VOLUME 89.7 fl (81.0-99.0); MEAN CORPUSCULAR HGB 27.2 pg (27.0-31.0); MEAN CORPUSCULAR HGB CONC 30.3 g/dl (33.0-37.0); MEAN PLATELET VOLUME 9.8 fl (9.6-12.3); MONO # 0.8 10*3/uL (0.1-1.0); NEUT # 5.7 10*3/uL (2.3-7.9); NEUT % 50.4 % (47.0-73.0); PLATELET COUNT AUTOMATED 290 10*3/uL (130-400); RED BLOOD COUNT 3.68 10*6/uL (4.10-5.10); RED CELL DISTRI WIDTH 15.2 % (0-14.5); WHITE BLOOD COUNT 11.2 10*3/uL (4.8-10.8)
[2017-05-09 08:49] LABS: BUN 21 mg/dl (7-24); CREATININE 0.93 mg/dL (0.55-1.02)
[2017-05-09 09:02] LABS: CHLORIDE 103 mmol/L (98-107); POTASSIUM 3.5 mmol/L (3.5-5.1); SODIUM 142 mmol/L (136-145)
[2017-05-09 16:00] VITALS: BP 154/79
[2017-05-09 20:00] VITALS: BP 137/67
[2017-05-10] VITALS: BP 130/74
[2017-05-10 08:00] VITALS: BP 111/49
== END 2017-05-10 13:10 | disposition home or self-care (01) | DRG 854 ==
LOC: 5E 11:50
PROVIDERS: ADMIT Internal Medicine
PROC: 0HBMXZZ Excision of Right Foot Skin, External Approach (ICD-10-PCS; principal; 2017-05-09)
PROC: 02HV33Z Insertion of Infusion Device into Superior Vena Cava, Percutaneous Approach (ICD-10-PCS; principal; 2017-05-09)
DX: B49 Unspecified mycosis (principal); J96.10 Chronic respiratory failure, unspecified whether with hypoxia or hypercapnia; E11.42 Type 2 diabetes mellitus with diabetic polyneuropathy; E11.621 Type 2 diabetes mellitus with foot ulcer; F33.9 Major depressive disorder, recurrent, unspecified; E11.65 Type 2 diabetes mellitus with hyperglycemia; R62.7 Adult failure to thrive; J44.9 Chronic obstructive pulmonary disease, unspecified; G89.29 Other chronic pain; F41.1 Generalized anxiety disorder; I10 Essential (primary) hypertension; Z72.89 Other problems related to lifestyle; Z89.432 Acquired absence of left foot; Z89.429 Acquired absence of other toe(s), unspecified side; Z99.81 Dependence on supplemental oxygen

== ENCOUNTER → 2017-05-28 | Outpatient (CLI) | payer BC, MEDICARE ==
[~2017-05-28] MED LIST changes: +MYCAMINE50 MG IV; +SILVADENE,SSD C50 GM T; +SILVADENE20 GM T
== END | disposition home or self-care (01) ==
LOC: WOUNDCARE 03:03
DX: E11.621 Type 2 diabetes mellitus with foot ulcer (principal); L97.511 Non-pressure chronic ulcer of other part of right foot limited to breakdown of skin; L89.892 Pressure ulcer of other site, stage 2; L02.612 Cutaneous abscess of left foot; E11.69 Type 2 diabetes mellitus with other specified complication; M86.8X7 Other osteomyelitis, ankle and foot; Z89.432 Acquired absence of left foot

== ENCOUNTER 2017-06-04 12:06 | Inpatient (IN) | payer BC, MEDICARE ==
[~2017-06-04] VITALS: Ht 157.4 cm; Wt 123.5 kg
--- NOTE | ~2017-06-04 | CON ---
[place], [place] REPORT OF CONSULTATION NAME: TOD HERNANDEZ UNIT #: [id number] ROOM: 412 DOCTOR: ELVIA MOULTON,DECEMBER BIRTHDATE: [birth year] DOS: 06/04/2017 HISTORY OF PRESENT ILLNESS: The patient is a 47-year-old female who was admitted from home with chills and left knee pain and leg pain, which began yesterday and progressively worsened. She has blood cultures pending as well as MRSA screen. She does have a history of MRSA. She was cultured as an outpatient by Dr. Molina from her left heel. She states he drained a small abscess as an outpatient last week. The culture is dated May 28 and grew MRSA and group B strep. She is admitted now with swelling, redness and pain, which extends from the knee up on the left lower extremity, it does not extend below the knee and she states it started with the knee and moved up. She is having difficultly to ambulating. She has been having some chills, but she takes Percocet around the clock, so she is not sure if she has had any fevers. Her WBCs are 18.8. She has already received a dose of vancomycin. Cefepime is also ordered. C-reactive protein is 8.32. She was just recently hospitalized one month ago with a fungemia with an infected MediPort. She completed treatment for that. PAST MEDICAL HISTORY: As above as well as diabetes, hypertension, anxiety, COPD, fractured thoracic vertebrae due to a fall and glaucoma. She has had hardware put into the right foot, had bilateral foot fractures, several MRSA infections, diabetic, foot infections with couple toes amputated. She uses an insulin pump for her diabetes. FAMILY MEDICAL HISTORY: Significant for asthma, hypertension, cancer and heart disease. REVIEW OF SYSTEMS: As above in history of present illness. No cough or shortness of breath. No nausea or vomiting, no diarrhea, no rash or itch. She is obese. Further review of systems is unremarkable. LABORATORY DATA: WBCs 18.8, platelets 343, sed rate of 37, BUN 23, creatinine 1.1. LFTs within normal limits. C-reactive protein 8.32. Albumin 2.9. Blood cultures are pending. MRSA screen is pending. ALLERGIES: PHENERGAN, MORPHINE, AND BACTRIM. CURRENT MEDICATIONS: Include vancomycin, Xalatan eye drops, Xanax, cefepime, Fioricet, DuoNebs and Demerol. PHYSICAL EXAMINATION: VITAL SIGNS: Temperature 98.6, pulse 90, respirations 16, BP 142/80. GENERAL: A 47-year-old obese female, nontoxic in appearance. HEAD, EYES, EARS, NOSE AND THROAT: Normocephalic, no thrush. LUNGS: Diminished bilaterally. Respirations are even and unlabored. HEART: Regular rhythm. No murmur appreciated. ABDOMEN: Soft, obese, nontender. EXTREMITIES: Left lower extremity, she has had a couple of toes amputated. The heel, she has hardened callus, but the wound is not really open. There is nothing expressible, nothing fluctuance, nothing with erythema. On right heel, [place], [place] REPORT OF CONSULTATION NAME: TOD HERNANDEZ UNIT #: [id number] ROOM: 412 DOCTOR: ELVIA MOULTONDECEMBER BIRTHDATE: [birth year] she has got a very small wound in the center of callus on the heel with no fluctuance or erythema. No purulence. The left knee has significant fluctuance over the patella. Erythema extends from just below the knee up to the thigh to the groin. It is red, hot, tender and she has significantly limited motion due to pain. No areas of infection in the groin, no open wounds, no darkened areas that would be signifying ascending infection. ASSESSMENT: Left knee and thigh cellulitis, concern for prepatellar septic bursitis or possibly even septic joint. PLAN: We will consult Dr. Dominguez with orthopedics. Continue the vancomycin, stop cefepime. Case discussed with Dr. Ana Laura Osman. RAYMON GAN CNP ANA LAURA OSMAN MD CM:CONSTR:REPORT OF CONSULTATION 1603 06/05/17 0623 interface
--- NOTE | ~2017-06-04 | CON ---
[place], [place] REPORT OF CONSULTATION NAME: TOD HERNANDEZ UNIT #: [id number] ROOM: 412 DOCTOR: JACQUI FREDERICK,ANA LAURA Dickson BIRTHDATE: [birth year] DOS: 06/04/2017 ADDENDUM After reviewing the labs, microbiology radiographs, I agree with the plans as described.. ANA LAURA OSMAN MD CM:CONSTR:REPORT OF CONSULTATION 1627 06/04/17 1820 interface
--- NOTE | ~2017-06-04 | PR ---
[place], [place] PROGRESS NOTE NAME: TOD HERNANDEZ UNIT #: [id number] ROOM: 412 DOCTOR: FRANCO CAPUTO MD BIRTHDATE: [birth year] DOS: SUBJECTIVE: I appreciate all consultants. The patient does not have any new complaints today. Her left leg appears to be less red, less swollen, but there is still some amount of fluid above the patella on the left side. Her left leg appears to be less red and less swollen. OBJECTIVE: VITAL SIGNS: Graphic trend shows blood pressure 137/63, pulse of 97, respirations 18, temperature 97.8. LUNGS: Diminished breath sounds, clear. HEART: Regular. ABDOMEN: Obese, soft. EXTREMITIES: Decreased edema in the left leg. Prepatellar area still has fluid collection. Multiple wounds, left heel, right heel, left second toe, right second and third toes, all pretty much the same. No change is noticed. LABORATORY DATA: Wound cultures show moderate gram-positive cocci, Strep agalactiae, which should be covered by the vancomycin that she is on. Body fluid cultures are pending. Blood culture shows no bacterial growth. ASSESSMENT AND PLAN: 1. The patient presents with swelling and redness of the left lower leg, possible cellulitis, on IV antibiotics. 2. Multiple wounds on the feet. The left heel wound was debrided before admission and the wound cultures are growing Streptococcus agalactiae, which is covered by the vancomycin. 3. Left knee effusion noticed on the MRI with the torn medial meniscus. This may not be a septic joint, could be the effusion possibly is from the meniscal tear, but the cultures are still pending, so we will continue the same antibiotics. I do not have any discharge planning yet. 4. 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 5. Type 2 diabetes mellitus. Blood sugars are better this morning. Yesterday, she had one reading of 469. We will continue same medicines. 6. PICC line placed on the right antecubital by Dr. Chaves yesterday. [place], [place] PROGRESS NOTE NAME: TOD HERNANDEZ UNIT #: [id number] ROOM: 412 DOCTOR: FRANCO CAPUTO MD BIRTHDATE: [birth year] FRANCO CAPUTO MD CM:ARTI [phone] FRANCO CAPUTO MD 06/06/171852 interface
--- NOTE | ~2017-06-04 | WRIGHTHP ---
[place], [place] PATIENT HISTORY AND PHYSICAL EXAM NAME: [id number] UNIT #: [id number] ROOM: 412 DOCTOR: FRANCO CAPUTO MD BIRTHDATE: [birth year] DOS: 06/04/2017 HISTORY OF PRESENT ILLNESS: The patient is 47 years old, very well known to us. She presents with complaints of swelling in the left leg. The patient states that she was seen by Dr. Molina a day prior to this admission. She had a small wound on her left heel that was I and D'ed and purulent material was removed and cultures were sent. She presented the next day morning. She developed severe pain in the knee area, extending up into the thigh and into her lower leg, so she decided to come into the Emergency Room where she was evaluated and was found to have a possibility of cellulitis and patient was admitted. She does not have any complaints of chest pains or palpitations, does not have any fever or chills, does not have any abdominal pain, nausea, any emesis. She has just finished a course of micafungin for Gail fungemia and her PICC line was removed recently. She does not have a MediPort access. PAST MEDICAL HISTORY: Significant for: 1. Last hospitalization in May 2017 for placement of PICC line ____ lack of IV access. 2. History of positive Gail culture of the blood. 3. History of MRSA osteomyelitis. She has just finished a course of doxycycline. 4. Type 2 diabetes mellitus, insulin-dependent, poorly controlled. 5. Chronic obstructive lung disease with chronic respiratory failure. 6. Adult failure to thrive. 7. Poorly healing wounds of legs. MEDICATIONS: She is currently on breathing treatments, oxygen, Xanax 0.5 twice a day, latanoprost bedtime, Fioricet t.i.d. p.r.n. for headaches, diltiazem 240 daily, famotidine 40 daily, Pepcid 40 daily, lisinopril 40 daily, Percocet 7.5 q. 6 hours p.r.n., Paxil 30 daily, Lyrica 100 b.i.d., Prandin 1 mg t.i.d., Daliresp 500 mcg daily, Humalog in the insulin pump. SOCIAL HISTORY: Nonsmoker, does not use any alcohol. PHYSICAL EXAMINATION: GENERAL: The patient is awake and alert and oriented, quite a lot of discomfort from the left knee. She is unable to bend her leg because of extreme pain and swelling. VITAL SIGNS: Blood pressure is 118/53, pulse of 80, respirations ____, temperature 97.8. LUNGS: Diminished breath sounds, clear. HEART: Regular. ABDOMEN: Obese, soft, nontender. EXTREMITIES: Decubitus noticed and ulcers noted to the left heel, right heel, left second toe and right second and third toes. These are poorly healing chronic wounds. The left leg is quite swollen all the way from middle of the lower leg all up to the middle of the thigh. Soft tissue swelling noticed in the prepatellar and the suprapatellar area. The knee joint itself does not have any tenderness. Examination of the knee joint, no tenderness in the joint line area. [place], [place] PATIENT HISTORY AND PHYSICAL EXAM NAME: TOD HERNANDEZ UNIT #: [id number] ROOM: [facility] DOCTOR: FRANCO CAPUTO MD BIRTHDATE: [birth year] LABORATORY DATA: Shows WBC count of ____, hemoglobin ____. Comprehensive: Glucose 187, BUN ____, creatinine 1.10, sodium 138, potassium 4.1, chloride 105, bicarbonate 24. C-reactive protein 8.32, lipase 108. ESR was 37. ASSESSMENT AND PLAN: 1. Cellulitis of the left leg. The patient is admitted, vancomycin IV started, need to rule out septic joint of the left knee. MRI of the knee has been ordered. Consultation with ID and Ortho has been obtained. Blood cultures and wound cultures have been sent. 2. Poorly healing wounds of the left and right feet. Dr. Molina has been consulted for wound care. 3. Type 2 diabetes mellitus, insulin-dependent. Continue insulin pump and ____ checks. 4. Chronic respiratory failure, on oxygen supplementation, stable without any evidence of hypoxemia. FRANCO CAPUTO MD CM:HISPHYS:PATIENT HISTORY AND PHYSICAL EXAMINATION [phone] FRANCO CAPUTO MD 06/07/17 1653 interface
--- NOTE | ~2017-06-04 | PR ---
[place], [place] PROGRESS NOTE NAME: TOD HERNANDEZ UNIT #: [id number] ROOM: 412 DOCTOR: FRANCO CAPUTO MD BIRTHDATE: [birth year] DOS: SUBJECTIVE: The patient has no new complaints. The left leg swelling seems to be subsided. OBJECTIVE: VITAL SIGNS: Graphic trend shows a pressure 113/52, pulse of 88, respirations 20, temperature 98.0. LUNGS: Clear. HEART: Regular. ABDOMEN: Obese. EXTREMITIES: Decreased edema. Left leg redness and cellulitis seems to be subsiding, still some amount of fluid in the prepatellar area. If this area is not indurated, it is not tender. LABORATORY DATA: Shows this morning WBC count 13.8, hemoglobin 9.4. Blood culture shows no bacterial growth. Wound culture shows Staph aureus and Strep agalactiae, just both sensitive to IV vancomycin. ASSESSMENT AND PLAN: 1. Left leg cellulitis, on antibiotics. 2. Multiple wounds of the left and right feet, which is growing Staphylococcus and Strep agalactiae for which she is again covered by IV vancomycin. 3. Septic joint has been ruled out with negative cultures of the joint fluid. We did try to call Dr. Dominguez this morning, she was unavailable as far as discharge planning and we will arrange for IV vancomycin at home. FRANCO CAPUTO MD CM:PNTRANS [phone] FRANCO CAPUTO MD 06/07/17 1527 interface
--- NOTE | ~2017-06-04 | PR ---
[place], [place] PROGRESS NOTE NAME: TOD HERNANDEZ UNIT #: [id number] ROOM: 412 DOCTOR: JACQUI FREDERICK,ANA LAURA Dickson BIRTHDATE: [birth year] DOS: ADDENDUM I agree with above plans as described above follow the patient up clinically and adjust accordingly. ANA LAURA OSMAN MD CM:PNTRANS [phone] ANA LAURA OSMAN MD 06/07/17 0749 interface
--- NOTE | ~2017-06-04 | DS ---
[place], [place] DISCHARGE SUMMARY NAME: TOD HERNANDEZ UNIT #: [id number] ROOM: 412 DOCTOR: FRANCO CAPUTO MD BIRTHDATE: [birth year] DOS: 06/07/2017 HOSPITAL COURSE: This patient is very well known to us 47-year-old presented with swelling and redness of the left leg. Please see the H and P for details. After admission, the patient had ID consultation and Ortho consultation. MRI of the left knee as well as venous Doppler was done. No DVT was seen. MRI showed moderate joint effusion and medial meniscal tear. The patient states that she has not had any falls or any injuries recently. Dr. Dominguez removed about 40 mL of fluid from the left knee. I am not sure what characteristics of the fluid or fluid was. No studies were sent, but the cultures have shown no bacterial growth. The patient also did have multiple wounds on both the right and left feet, which have been cultured and has grown Staph aureus and Strep agalactiae, which is covered by IV vancomycin that she is on. A PICC line has been placed. The left leg redness and swelling have subsided. WBC count has improved. She does have end-stage COPD, which is stable without any exacerbation. Her white cell count on admission on 18.8 that has come down to about 13.8. Lactic acid was normal. ESR is 37 and CRP was also within normal limits. The patient is relatively stable. The plan is to discharge her to home today. She still has some prepatellar free fluid, which does not appear to be any infectious in etiology. I will continue IV vancomycin for about 10 days and so that arrangements for discharge will be made. I will speak to Dr. Dominguez before the patient is discharged today. FRANCO CAPUTO MD CM:DISCHARG [phone] FRANCO CAPUTO MD 06/07/17 1040 interface
--- NOTE | ~2017-06-04 | PR ---
[place], [place] PROGRESS NOTE NAME: TOD HERNANDEZ UNIT #: [id number] ROOM: 412 DOCTOR: ELVIA MOULTON,DECEMBER BIRTHDATE: [birth year] DOS: 06/06/2017 The patient is a 47-year-old female being followed for a left leg cellulitis, which extends from the knee proximally to the groin, with likely prepatellar septic bursitis. She did have an MRI done of the knee yesterday, which showed a joint effusion as well as a torn meniscus. She is being followed by Dr. Dominguez with Orthopedics who aspirated the bursa yesterday. Cultures from that are pending, does have many WBCs on the Gram stain. Her leukocytosis is improving. WBCs are down to 12,000. She had a right toe culture obtained, which grew group B strep and a left foot culture obtained, which grew a group B strep. She had had an outpatient culture from the left heel last week, which grew MRSA and group B strep. She is currently on vancomycin. She has a history of many MRSA infections, though her nose swab is negative. Blood cultures are negative. She is alert and oriented, feeling much better. Her left knee still hurts quite a bit, but it is improving and the swelling and erythema of the left thigh have improved. She has been afebrile. Denies any nausea, vomiting, diarrhea. No rash or itch. Breathing is baseline. Vital signs show temperature 97.8, pulse 80, respirations 12, BP 120/78. LABS: WBCs 12.8, platelets 283. Cultures as above. CURRENT MEDICATIONS: Include Daliresp, prednisone, Paxil, Zestril, Pepcid, Cardizem, vancomycin, Lyrica, latanoprost eyedrops, Xanax, Prandin, insulin, Percocet, DuoNebs, Demerol. PHYSICAL EXAMINATION: VITAL SIGNS: Temperature 97.8, pulse 80, respirations 12, BP 120/78. GENERAL: A 47-year-old morbidly obese female in no acute distress. HEENT: Normocephalic. No thrush. LUNGS: Clear to auscultation bilaterally. Respirations even and unlabored. HEART: Regular rhythm, no murmur appreciated. ABDOMEN: Soft. Positive bowel sounds. EXTREMITIES: +3 edema bilateral lower extremities. Left knee still with a joint effusion, mild erythema; erythema and swelling of the left thigh much improved. She has PICC in the right upper extremity. Dressing dry and intact. No signs of phlebitis. ASSESSMENT AND PLAN: Left leg cellulitis and probable left prepatellar septic bursitis status post aspiration by Orthopedics. PLAN: She is to continue the vancomycin. She did have MRSA and group B strep as an outpatient from the left heel. On physical examination, I think a deeper infection of the left heel is highly unlikely. There was no sign of infection below the knee at the time of admission. She will continue the vancomycin. Follow up on cultures and adjust the antibiotics accordingly. Case discussed with . [place], [place] PROGRESS NOTE NAME: TOD HERNANDEZ UNIT #: [id number] ROOM: 412 DOCTOR: ELVIA MOULTONDECEMBER BIRTHDATE: [birth year] RAYMON GAN CNP ANA LAURA OSMAN MD CM:ARTI [phone] RAYMON GAN CNP 06/06/17 1251 interface
[2017-06-04 12:09] VITALS: BP 142/80
[2017-06-04 13:19] VITALS: BP 125/57
[2017-06-04 13:40] LABS: BASO % 0.1 % (0.0-1.0); EOS % 0.2 % (1.0-4.0); HEMATOCRIT 34.7 % (37.0-47.0); HEMOGLOBIN 10.2 g/dl (12.0-16.0); LYMPH # 2.5 10*3/uL (1.3-4.4); LYMPH % 13.4 % (27.0-41.0); MEAN CELL VOLUME 89.9 fl (81.0-99.0); MEAN CORPUSCULAR HGB 26.4 pg (27.0-31.0); MEAN CORPUSCULAR HGB CONC 29.4 g/dl (33.0-37.0); MEAN PLATELET VOLUME 10.1 fl (9.6-12.3); MONO # 0.8 10*3/uL (0.1-1.0); MONO % 4.5 % (3.0-9.0); NEUT # 15.2 10*3/uL (2.3-7.9); NEUT % 80.7 % (47.0-73.0); PLATELET COUNT AUTOMATED 343 10*3/uL (130-400); RED BLOOD COUNT 3.86 10*6/uL (4.10-5.10); RED CELL DISTRI WIDTH 15.6 % (0-14.5); WHITE BLOOD COUNT 18.8 10*3/uL (4.8-10.8)
[2017-06-04 13:52] LABS: ACT PARTIAL THROMBO TIME 23.5 SECONDS (20.8-31.5); INTERNATIONAL NORM RATIO 0.9 (2.0-3.5)
[2017-06-04 13:58] LABS: ALBUMIN 2.9 gm/dl (3.1-4.5); ALKALINE PHOSPHATASE 97 U/L (45-117); BUN 23 mg/dl (7-24); CHLORIDE 105 mmol/L (98-107); LIPASE 108 U/L (73-393); MAGNESIUM 2.2 mg/dL (1.5-2.1); POTASSIUM 4.1 mmol/L (3.5-5.1); SGOT/AST 6 IU/L (3-35); SGPT/ALT 17 U/L (12-78); SODIUM 138 mmol/L (136-145); TOTAL PROTEIN 6.7 gm/dL (6.4-8.2)
[2017-06-04 13:59] LABS: BETA-HCG, QUANT < 1.0 mIU/mL (1-3); TROPONIN I < 0.015 ng/ml (<0.045)
[2017-06-04 15:20] VITALS: BP 125/57
[2017-06-04 16:00] VITALS: BP 107/58
[2017-06-05] VITALS: BP 111/55
[2017-06-05 06:38] LABS: BASO % 0.1 % (0.0-1.0); EOS # 0.4 10*3/uL (0.0-0.4); EOS % 2.5 % (1.0-4.0); HEMOGLOBIN 8.9 g/dl (12.0-16.0); LYMPH # 3.7 10*3/uL (1.3-4.4); MEAN CELL VOLUME 91.2 fl (81.0-99.0); MEAN CORPUSCULAR HGB 26.2 pg (27.0-31.0); MEAN CORPUSCULAR HGB CONC 28.7 g/dl (33.0-37.0); MEAN PLATELET VOLUME 10.4 fl (9.6-12.3); NEUT % 63.3 % (47.0-73.0); PLATELET COUNT AUTOMATED 295 10*3/uL (130-400); RED CELL DISTRI WIDTH 15.9 % (0-14.5); WHITE BLOOD COUNT 14.2 10*3/uL (4.8-10.8)
[2017-06-05 08:00] VITALS: BP 118/72
[2017-06-05 10:00] VITALS: BP 115/58
[2017-06-05 16:00] VITALS: BP 145/59
[2017-06-06] VITALS: BP 137/63
[2017-06-06 06:07] LABS: BASO % 0.2 % (0.0-1.0); EOS # 0.3 10*3/uL (0.0-0.4); EOS % 2.2 % (1.0-4.0); HEMATOCRIT 32.4 % (37.0-47.0); HEMOGLOBIN 9.4 g/dl (12.0-16.0); LYMPH # 3.3 10*3/uL (1.3-4.4); MEAN CELL VOLUME 93.4 fl (81.0-99.0); MEAN CORPUSCULAR HGB 27.1 pg (27.0-31.0); MEAN PLATELET VOLUME 10.2 fl (9.6-12.3); MONO # 0.9 10*3/uL (0.1-1.0); MONO % 7.3 % (3.0-9.0); NEUT # 8.1 10*3/uL (2.3-7.9); NEUT % 62.7 % (47.0-73.0); PLATELET COUNT AUTOMATED 283 10*3/uL (130-400); RED BLOOD COUNT 3.47 10*6/uL (4.10-5.10); RED CELL DISTRI WIDTH 15.6 % (0-14.5); WHITE BLOOD COUNT 12.8 10*3/uL (4.8-10.8)
[2017-06-06 08:00] VITALS: BP 120/78
[2017-06-06 12:00] VITALS: BP 120/80
[2017-06-06 15:07] LABS: ACID FAST SMEAR Negative (.); ACID FAST SPEC PROCESSING Concentration (.)
[2017-06-06 16:00] VITALS: BP 118/53
[2017-06-07] VITALS: BP 113/52
[2017-06-07 07:13] LABS: BASO % 0.3 % (0.0-1.0); EOS # 0.4 10*3/uL (0.0-0.4); EOS % 2.5 % (1.0-4.0); HEMATOCRIT 32.5 % (37.0-47.0); HEMOGLOBIN 9.4 g/dl (12.0-16.0); LYMPH % 28.9 % (27.0-41.0); MEAN CELL VOLUME 91.5 fl (81.0-99.0); MEAN CORPUSCULAR HGB 26.5 pg (27.0-31.0); MEAN CORPUSCULAR HGB CONC 28.9 g/dl (33.0-37.0); MEAN PLATELET VOLUME 10.3 fl (9.6-12.3); MONO # 0.9 10*3/uL (0.1-1.0); MONO % 6.7 % (3.0-9.0); NEUT # 8.2 10*3/uL (2.3-7.9); NEUT % 59.8 % (47.0-73.0); PLATELET COUNT AUTOMATED 355 10*3/uL (130-400); RED BLOOD COUNT 3.55 10*6/uL (4.10-5.10); RED CELL DISTRI WIDTH 15.5 % (0-14.5); WHITE BLOOD COUNT 13.8 10*3/uL (4.8-10.8)
[2017-06-07 07:22] LABS: BUN 37 mg/dl (7-24)
[2017-06-07 08:00] VITALS: BP 132/66
[2017-06-07] MEDS ORDERED: XANAX0.5 MG PO (08:06)
[2017-06-07] MEDS ORDERED: LYRICA100 M1 PO (08:06)
[2017-06-07] MEDS ORDERED: PERCOCET 7.5-31 EACH PO (08:06)
[2017-06-07] MEDS ORDERED: VANCO 1.51.5 GM/500 IV (08:06)
== END 2017-06-07 15:44 | disposition home health service (06) | DRG 558 ==
LOC: ED 12:06 → 4E 13:16
PROVIDERS: Emergency Medicine; Internal Medicine; Orthopaedic Surgery; ADMIT Internal Medicine
PROC: 0M9P3ZX Drainage of Left Knee Bursa and Ligament, Percutaneous Approach, Diagnostic (ICD-10-PCS; principal; 2017-06-05)
PROC: B5181ZA Fluoroscopy of Superior Vena Cava using Low Osmolar Contrast, Guidance (ICD-10-PCS; 2017-06-05)
PROC: 02HV33Z Insertion of Infusion Device into Superior Vena Cava, Percutaneous Approach (ICD-10-PCS; 2017-06-05)
PROC: B548ZZA Ultrasonography of Superior Vena Cava, Guidance (ICD-10-PCS; 2017-06-05)
DX: M70.42 Prepatellar bursitis, left knee (principal); J96.10 Chronic respiratory failure, unspecified whether with hypoxia or hypercapnia; E11.621 Type 2 diabetes mellitus with foot ulcer; L03.116 Cellulitis of left lower limb; Z99.81 Dependence on supplemental oxygen; E11.9 Type 2 diabetes mellitus without complications; L02.611 Cutaneous abscess of right foot; I10 Essential (primary) hypertension; L02.612 Cutaneous abscess of left foot; B95.62 Methicillin resistant Staphylococcus aureus infection as the cause of diseases classified elsewhere; M25.462 Effusion, left knee; F32.9 Major depressive disorder, single episode, unspecified; J43.1 Panlobular emphysema; L97.519 Non-pressure chronic ulcer of other part of right foot with unspecified severity; L97.529 Non-pressure chronic ulcer of other part of left foot with unspecified severity; H40.9 Unspecified glaucoma; F41.9 Anxiety disorder, unspecified; Z86.14 Personal history of Methicillin resistant Staphylococcus aureus infection; Z87.81 Personal history of (healed) traumatic fracture; Z82.5 Family history of asthma and other chronic lower respiratory diseases; Z82.49 Family history of ischemic heart disease and other diseases of the circulatory system; Z80.9 Family history of malignant neoplasm, unspecified; Z88.1 Allergy status to other antibiotic agents; Z88.8 Allergy status to other drugs, medicaments and biological substances; Z88.2 Allergy status to sulfonamides; Z79.899 Other long term (current) drug therapy

== ENCOUNTER → 2017-06-04 | Outpatient (CLI) | payer BC, MEDICARE | LOC: WOUNDCARE 03:24 | DX: E11.621 Type 2 diabetes mellitus with foot ulcer (principal); L97.511 Non-pressure chronic ulcer of other part of right foot limited to breakdown of skin; L89.892 Pressure ulcer of other site, stage 2; L02.612 Cutaneous abscess of left foot; Z86.14 Personal history of Methicillin resistant Staphylococcus aureus infection; Z89.422 Acquired absence of other left toe(s) ==

== ENCOUNTER 2017-06-11 17:25 | Emergency (ER) | payer BC, MEDICARE ==
[~2017-06-11] VITALS: Ht 157.4 cm; Wt 117.9 kg
[~2017-06-11 17:25] MED LIST changes: +PERCOCET 7.5-31 EACH PO; +VANCO 1.51.5 GM/500 IV
[2017-06-11 17:30] VITALS: BP 152/59
== END 2017-06-11 19:08 | disposition home or self-care (01) ==
LOC: ED 17:25
DX: Z45.2 Encounter for adjustment and management of vascular access device (principal); R60.9 Edema, unspecified; J45.909 Unspecified asthma, uncomplicated; G89.29 Other chronic pain; M54.9 Dorsalgia, unspecified; E11.621 Type 2 diabetes mellitus with foot ulcer; L97.509 Non-pressure chronic ulcer of other part of unspecified foot with unspecified severity; I10 Essential (primary) hypertension; E11.65 Type 2 diabetes mellitus with hyperglycemia; M19.90 Unspecified osteoarthritis, unspecified site; Z98.890 Other specified postprocedural states; Z79.899 Other long term (current) drug therapy; Z88.8 Allergy status to other drugs, medicaments and biological substances; Z88.1 Allergy status to other antibiotic agents; Z88.5 Allergy status to narcotic agent

== ENCOUNTER → 2017-06-14 | Outpatient (CLI) | payer BC, MEDICARE | END | disposition home or self-care (01) | LOC: WOUNDCARE 00:50 | DX: E11.621 Type 2 diabetes mellitus with foot ulcer (principal); L89.892 Pressure ulcer of other site, stage 2; L97.511 Non-pressure chronic ulcer of other part of right foot limited to breakdown of skin; L02.612 Cutaneous abscess of left foot; L97.421 Non-pressure chronic ulcer of left heel and midfoot limited to breakdown of skin; L97.411 Non-pressure chronic ulcer of right heel and midfoot limited to breakdown of skin; I89.0 Lymphedema, not elsewhere classified; Z89.432 Acquired absence of left foot ==

== ENCOUNTER → 2017-06-21 | Outpatient (CLI) | payer BC, MEDICARE | END | disposition home or self-care (01) | LOC: WOUNDCARE 03:27 | DX: E11.621 Type 2 diabetes mellitus with foot ulcer (principal); L97.421 Non-pressure chronic ulcer of left heel and midfoot limited to breakdown of skin; L97.411 Non-pressure chronic ulcer of right heel and midfoot limited to breakdown of skin; L97.521 Non-pressure chronic ulcer of other part of left foot limited to breakdown of skin; L97.511 Non-pressure chronic ulcer of other part of right foot limited to breakdown of skin; I89.0 Lymphedema, not elsewhere classified; L89.892 Pressure ulcer of other site, stage 2; E11.69 Type 2 diabetes mellitus with other specified complication; M86.8X7 Other osteomyelitis, ankle and foot; Z86.14 Personal history of Methicillin resistant Staphylococcus aureus infection; Z89.412 Acquired absence of left great toe ==

== ENCOUNTER → 2017-06-25 | Outpatient (CLI) | payer BC, MEDICARE ==
[2017-06-25 13:54] LABS: BODY FLUID WBC 294 /uL
[2017-06-25 15:10] LABS: BF LYMPHOCYTES 89 %; BF MONOCYTES 4 %; BF NEUTROPHILS 7 %
== END | disposition home or self-care (01) ==
LOC: ORTHO 04:21 → LAB 13:15 → ORTHO 13:56
PROVIDERS: Orthopaedic Surgery
DX: M70.42 Prepatellar bursitis, left knee (principal)

== ENCOUNTER → 2017-06-26 | Day surgery (SDC) | payer BC, MEDICARE ==
[2017-06-26 08:12] VITALS: BP 143/59
[2017-06-26 10:18] VITALS: BP 169/89
[2017-06-26 10:33] VITALS: BP 178/90
[2017-06-26 10:48] VITALS: BP 166/86
[2017-06-26 11:03] VITALS: BP 135/68
[2017-06-26 11:18] VITALS: BP 143/75
== END | disposition home or self-care (01) ==
LOC: SDC 06-25 11:00
DX: E11.621 Type 2 diabetes mellitus with foot ulcer (principal); J44.9 Chronic obstructive pulmonary disease, unspecified; I10 Essential (primary) hypertension; F32.9 Major depressive disorder, single episode, unspecified; Z86.14 Personal history of Methicillin resistant Staphylococcus aureus infection; Z79.4 Long term (current) use of insulin; Z87.440 Personal history of urinary (tract) infections; Z80.8 Family history of malignant neoplasm of other organs or systems; F41.9 Anxiety disorder, unspecified; Z98.890 Other specified postprocedural states; E66.01 Morbid (severe) obesity due to excess calories; Z79.899 Other long term (current) drug therapy; G43.909 Migraine, unspecified, not intractable, without status migrainosus; Z82.49 Family history of ischemic heart disease and other diseases of the circulatory system

== ENCOUNTER → 2017-06-28 | Outpatient (CLI) | payer BC, MEDICARE | END | disposition home or self-care (01) | LOC: WOUNDCARE 00:52 | DX: E11.621 Type 2 diabetes mellitus with foot ulcer (principal); L97.412 Non-pressure chronic ulcer of right heel and midfoot with fat layer exposed; L97.521 Non-pressure chronic ulcer of other part of left foot limited to breakdown of skin; L89.892 Pressure ulcer of other site, stage 2; E11.69 Type 2 diabetes mellitus with other specified complication; M86.8X7 Other osteomyelitis, ankle and foot; Z89.412 Acquired absence of left great toe ==

== ENCOUNTER → 2017-07-17 | Outpatient (CLI) | payer BC, MEDICARE | END | disposition home or self-care (01) | LOC: WOUNDCARE 03:24 | DX: L97.521 Non-pressure chronic ulcer of other part of left foot limited to breakdown of skin (principal); L97.511 Non-pressure chronic ulcer of other part of right foot limited to breakdown of skin; L02.612 Cutaneous abscess of left foot; L89.892 Pressure ulcer of other site, stage 2; Z89.432 Acquired absence of left foot ==

== ENCOUNTER 2017-07-22 17:12 | Inpatient (IN) | payer BC, MEDICARE ==
[~2017-07-22] VITALS: Ht 157.5 cm; Wt 123.9 kg
--- NOTE | ~2017-07-22 | WRIGHTHP ---
[place], [place] PATIENT HISTORY AND PHYSICAL EXAM NAME: TOD HERNANDEZ UNIT #: [id number] ROOM: [facility] DOCTOR: FRANCO CAPUTO MD BIRTHDATE: [birth year] DOS: 07/22/2017 HISTORY OF PRESENT ILLNESS: The patient is 47 years old. The patient is very well known to us. She comes in to the emergency room with complaints of pain and swelling. The patient states that she was fine on Sunday, on Sunday suddenly she did not feel good, she had increased pain in the left heel and the pain persisted, so she decided to come into the emergency room on Sunday. She was wearing a new slipper and developed a large blood blister on the left heel before she arrived. She also has some chills and an achy feeling. During the night, she had high grade temperature of 101, also became quite hypotensive and with dropping saturations, she was transferred to the ICU. She denies having any chest pains, palpitations. She has diffuse aches and pains and wants Demerol. Denies having any nausea, any emesis. PAST MEDICAL HISTORY: Significant for: 1. Multiple hospitalizations for sepsis and multiple MediPorts have been placed for line sepsis. 2. Chronic poorly healing wounds of the legs, followed by wound care. 3. History of positive Gail of the blood. 4. History of MRSA osteomyelitis, for which she has completed antibiotics. 5. Type 2 diabetes mellitus, insulin-dependent. 6. Chronic lung disease, obstructive with chronic respiratory failure. MEDICATIONS: She is on are breathing treatments, Ventolin p.r.n., oxygen, Xanax 0.5 twice a day, Percocet 7.5 q. 6, calcium 600 b.i.d., diltiazem 240 daily, Pepcid 40 daily, lisinopril 40 daily, Paxil 30 daily, prednisone 30 daily, Lyrica 100 b.i.d., Prandin 1 mg t.i.d., Daliresp 500 mcg daily, insulin pump. SOCIAL HISTORY: Nonsmoker. PHYSICAL EXAMINATION: GENERAL: She is awake and alert, does try to answer questions appropriately. The MediPort site looks red. There is infiltration of fluid around the MediPort site. VITAL SIGNS: Blood pressure is 109/43, pulse of 94, respirations 18, temperature 98.6 with T-max 100.2. LUNGS: Diminished breath sounds. HEART: Regular. ABDOMEN: Obese, soft, nontender. EXTREMITIES: Large blood blister on the left heel with surrounding redness and evidence of cellulitis. Heel ulcer on the left, which is very small with packing applied. No evidence of redness surrounding. Right heel, there is a small ulcer with granulation almost completely healed. Multiple small ulcers noted on her toes, which are chronic, none of them are infected. LABORATORY DATA: Lactic acid was 3.6 on admission. White cell count is 19.0, hemoglobin 10.1, hematocrit 34.3, platelets 333. BMP: C-reactive protein is 13.4. BUN is 36, creatinine 1.63. ESR is 104. ASSESSMENT AND PLAN: [place], [place] PATIENT HISTORY AND PHYSICAL EXAM NAME: TOD HERNANDEZ UNIT #: [id number] ROOM: [facility] DOCTOR: FRANCO CAPUTO MD BIRTHDATE: [birth year] 1. Sepsis, source of infection is most likely the MediPort, avoid using MediPort, peripheral IV to be ordered. Consult surgery to have MediPort removed. 2. Left heel blister hemorrhagic noted possibly from injury from a new shoe. The patient most likely will need it excised and drained. Again, surgical consult obtained. MRI of the foot has been obtained, but I do not think the source of infection is the feet. 3. Chronic obstructive pulmonary disease with chronic respiratory failure. Does not have any evidence of exacerbation. Continue breathing treatments and prednisone. 4. Recent history of Gail sepsis. We will go ahead and start her on medications once we have the culture results. 5. Type 2 diabetes mellitus. Blood sugars to be checked and coverage scale to be ordered. FRANCO CAPUTO MD CM:HISPHYS:PATIENT HISTORY AND PHYSICAL EXAMINATION [id number] FRANCO CAPUTO MD 07/24/17 0450 interface
--- NOTE | ~2017-07-22 | PR ---
[place], [place] PROGRESS NOTE NAME: TOD HERNANDEZ UNIT #: [id number] ROOM: [facility] DOCTOR: FRANCO CAPUTO MD BIRTHDATE: [birth year] DOS: 07/25/2017 SUBJECTIVE: The patient states there is less discomfort. She does not have any other complaints today. OBJECTIVE: VITAL SIGNS: Blood pressure is 154/91, pulse of 95, respirations 20, temperature 98.0. LUNGS: Diminished breath sounds, clear. HEART: Regular. ABDOMEN: Obese, soft. EXTREMITIES: Decreased edema noticed in the left leg. The wound dressings removed. There is quite a lot of purulence from this wound. The wound initially started in the heel area, which has tunneled to the ankle. Less amount of cellulitis noticed. ASSESSMENT AND PLAN: 1. Possible osteomyelitis of the calcaneum on the MRI with the plantar abscess ____. The patient had an incision and drainage and the wound has been cleansed and wound care has been started. IV antibiotics to be continued. So far the cultures are all negative. Since the patient is hemodynamically stable and is no longer febrile, the plan is to discharge her to a long-term care facility at [place]. 2. Type 2 diabetes mellitus. Blood sugars are not very well controlled. We will restart the insulin pump upon discharge. 3. Again osteomyelitis. Continue to receive IV antibiotics at least 6 weeks. 4. Gram-positive cocci and gram-negative bacilli are noted on the bone biopsy. No fungal organisms are seen. Micafungin can be discontinued. [facility] site look intact. FRANCO CAPUTO MD CM:PNTRANS [id number] FRANCO CAPUTO MD 07/25/17 0938 interface
--- NOTE | ~2017-07-22 | DS ---
[place], [place] DISCHARGE SUMMARY NAME: TOD HERNANDEZ UNIT #: [id number] ROOM: [facility] DOCTOR: FRANCO CAPUTO MD BIRTHDATE: [birth year] DOS: 07/25/2017 DIAGNOSES: 1. Osteomyelitis of the calcaneum, plantar abscess, status post incision and drainage and drain placement. 2. Chronic poorly healing wounds of the feet. 3. Type 2 diabetes mellitus, insulin-dependent, poorly controlled. 4. Chronic obstructive pulmonary disease with chronic respiratory failure. 5. History of methicillin-resistant Staphylococcus aureus, osteomyelitis of the right heel. 6. History of candidemia. 7. MediPort placement. 8. Acute respiratory failure, possibly from sepsis. 9. Chronic kidney disease from diabetic nephropathy. HOSPITAL COURSE: The patient is a 47-year-old, very well known to us, comes in with complaints of left heel pain, which the patient stated came on quite suddenly. Please refer to H and P for details. The patient had a high grade fever of 101, appeared to be septic and hypotensive and hypoxic. The patient was transferred to the ICU, was placed on IV fluids, multiple IV antibiotics. Juárez cultures were performed. An MRI of the left ankle and foot was ordered. A consultation with Surgery was obtained. The patient had a small heel ulcer with a large blister on the medial malleolus of the left foot. She was taken for surgery and was found to have the wound starting at the heel and tunneling into the left medial malleolus. MRI showed osteomyelitis of the calcaneum. Blood cultures, wound cultures have come back negative. The patient has a lot of drainage of purulent yellow-green material from the wound. The patient is well covered with Zosyn and vancomycin for pseudomonas and MRSA. The bone biopsy did show Gram-positive cocci and Gram-negative bacilli. The exact identification is not available. The patient's blood sugars are not very well controlled. The patient is being restarted back on the insulin pump, which should control it better. Blood pressures are controlled. DISCHARGE MEDICATIONS: Will be the same. Lisinopril 40 daily, Paxil 30 daily, breathing treatments of DuoNeb q. 4 hours, oxygen titrate, Pepcid 40 daily, prednisone 30 daily, diltiazem 240 daily, Daliresp 500 mcg daily, Prandin 1 mg t.i.d., Percocet 7.5 q 6 hours p.r.n., Xanax 0.5 twice a day p.r.n., Lyrica 100 mg twice a day, insulin pump. DIET: ADA 1800. [place], [place] DISCHARGE SUMMARY NAME: TOD HERNANDEZ UNIT #: [id number] ROOM: [facility] DOCTOR: FRANCO CAPUTO MD BIRTHDATE: [birth year] FRANCO CAPUTO MD CM:DISCHBEATRIZ [id number] FRANCO CAPUTO MD 07/25/17828 interface
--- NOTE | ~2017-07-22 | PR ---
[place], [place] PROGRESS NOTE NAME: TOD HERNANDEZ UNIT #: [id number] ROOM: [facility] DOCTOR: FRANCO CAPUTO MD BIRTHDATE: [birth year] DOS: SUBJECTIVE: The patient is saying that she feels a little bit better than yesterday. OBJECTIVE: VITAL SIGNS: Graphic trend shows blood pressure of 94/52, pulse of 88, respirations 20, temperature 97.9, T-max of 101. LUNGS: Diminished breath sounds. No wheezes, rales or rhonchi heard. HEART: Regular. ABDOMEN: Obese. EXTREMITIES: Right without any swelling. Left heavily bandaged. LABORATORY DATA: None available today. Wound culture is pending. ASSESSMENT AND PLAN: 1. Poorly healing wound of the left heel. This is further worsened with tunneling into the ankle. MRI of the foot is pending. She did undergo incision and drainage yesterday. MediPort site looks much better this morning. Blood cultures and urine cultures are all pending. The patient is on multiple IV antibiotics, which are being continued. 2. Type 2 diabetes mellitus. Blood sugars to be checked and coverage scale to be started. FRANCO CAPUTO MD CM:PNKESHA 3 4 FRANCO CAPUTO MD 07/24/17925 interface
[2017-07-22 17:18] VITALS: BP 113/43
[2017-07-22 17:35] VITALS: BP 116/49
[2017-07-22 18:00] VITALS: BP 127/54
[2017-07-22 18:46] LABS: BASO % 0.2 % (0.0-1.0); EOS # 0.1 10*3/uL (0.0-0.4); EOS % 0.7 % (1.0-4.0); HEMATOCRIT 34.3 % (37.0-47.0); HEMOGLOBIN 10.1 g/dl (12.0-16.0); LYMPH # 2.6 10*3/uL (1.3-4.4); LYMPH % 13.8 % (27.0-41.0); MEAN CELL VOLUME 88.9 fl (81.0-99.0); MEAN CORPUSCULAR HGB 26.2 pg (27.0-31.0); MEAN CORPUSCULAR HGB CONC 29.4 g/dl (33.0-37.0); MEAN PLATELET VOLUME 10.6 fl (9.6-12.3); MONO # 1.1 10*3/uL (0.1-1.0); MONO % 5.8 % (3.0-9.0); NEUT # 14.9 10*3/uL (2.3-7.9); NEUT % 78.7 % (47.0-73.0); PLATELET COUNT AUTOMATED 333 10*3/uL (130-400); RED BLOOD COUNT 3.86 10*6/uL (4.10-5.10); RED CELL DISTRI WIDTH 15.9 % (0-14.5)
[2017-07-22 18:54] LABS: ACT PARTIAL THROMBO TIME 24.6 SECONDS (20.8-31.5); INTERNATIONAL NORM RATIO 0.9 (2.0-3.5)
[2017-07-22 19:03] LABS: ALBUMIN 2.7 gm/dl (3.1-4.5); CREATININE 1.63 mg/dL (0.55-1.02); TOTAL PROTEIN 7.6 gm/dL (6.4-8.2)
--- NOTE | 2017-07-22 19:40 | NUR ---
ATTEMPTED TO GIVE REPORT TO [facility] RN.
[2017-07-22 20:00] VITALS: BP 132/63
--- NOTE | 2017-07-22 20:00 | NUR ---
A 47, admitted to , under the services of FRANCO Martinez MD with a diagnosis of SESVERE SEPSIS,HEEL ULCER DUE TO DM. Chief complaint is FROM HOME C/O ULCER/ABSCESS TO LEFT HEEL AREA ONSET OVER SOME TIME. AREA WORSE PER PT. AND NOW HAS FEVER. O2 DEPENDENT. Patient arrived via stretcher from ER. Monitor applied. Initial assessment completed. Vital signs taken and recorded. FRANCO MARTINEZ MD notified of admission to the unit. Orders received. See assessment for past medical history, medications and allergies. Patient and/or family oriented to unit. [facility]. visitation policy reviewed. Clothing/patient valuable form completed. ESPERANZA KWONG
[2017-07-22] MEDS ORDERED: DUONEB 3 MG/3 ML3 M1 INH (20:35)
--- NOTE | 2017-07-22 21:05 | NUR ---
CALLED DR. CAPUTO NO ANSWER.
--- NOTE | 2017-07-22 21:45 | NUR ---
CALLED DR. CAPUTO AND NOTIFIED OF CRITICAL LACTIC ACID AND ORDERS RECEIVED.
--- NOTE | 2017-07-22 23:20 | NUR ---
CALLED AND NOTIFIED DR. CAPUTO CRITICAL LACTIC ACID NO NEW ORDERS RECEIVED.
--- NOTE | 2017-07-22 23:56 | NUR ---
PERCOCET AND XANAX GIVEN PER ORDER. PERCOCET FOR WOUND PAIN IN FEET RATED "8 OR 9" WITH MOVEMENT.
[2017-07-23] VITALS (9 sets, daily range): BP systolic 97–150; BP diastolic 43–84
--- NOTE | 2017-07-23 01:00 | NUR ---
PT. SLEEPING. XANAX AND PERCOCET EFFECTIVE.
--- NOTE | 2017-07-23 03:21 | NUR ---
PT TEMP INCREASED. PRN TYLENOL GIVEN.
--- NOTE | 2017-07-23 06:39 | NUR ---
CALLED DR. PHILLIP ANSWERING SERVICE THEY TOOK INFORMATION.
--- NOTE | 2017-07-23 06:40 | NUR ---
THIS MORNING WHEN AWAKEND PT. C/O PAIN STARTING UP HER LEG NOW. LEFT ANKLE BECOMING SWOLLEN. PT. AWAKEND EASILY BUT FALLING ASLEEP EASILY,LISTLESS.
--- NOTE | 2017-07-23 08:30 | NUR ---
RECEIVED PT FROM VIA BED. PT REPORT RECEIVED AT BEDSIDE. BP 109/43. HR 94. POX 94% ON 3L NC. DRY GAUZE DRESSING NOTED TO RIGHT FOOT. LARGE DARK COLORED BLISTER NOTED TO LEFT INNER FOOT/ANKLE AREA. ASLO NOTED TO LEFT FOOT A ROUND OPEN AREA TO HEEL AREA. LEFT FOOT IS RED AND SWOLLEN. PT IS DROWDY BUT AWAKEN EASILY AND IS AAOX3 WHEN AWAKE.
--- NOTE | 2017-07-23 08:30 | NUR ---
RIVET PASSER VS. PT BEING SENT TO [facility]. WILL FOLLOW TOMORROW.
--- NOTE | 2017-07-23 08:40 | NUR ---
DR CAPUTO IN TO SEE PT. DR CAPUTO DID REMOVE FOOTAND TOE DRESSINGS. NEW ORDERS RECEIVED.
--- NOTE | 2017-07-23 09:01 | NUR ---
CALLED DR CAPUTO R/T PTS LOW BP AND O2 SATURATION. PT VERY LETHARGIC AND STATES "I REALLY FEEL AWFUL." PER DR CAPUTO PT TO GO TO [facility]. PT MOVED AND REPORT GIVEN TO MAGGIE AT 0845.
--- NOTE | 2017-07-23 09:26 | NUR ---
Dr. Krueger in to evaulate. evaulated mediport and painful wound of left ankle. Dr. Gonzalez spoke w/ Dr. Krueger re: plan of care.
--- NOTE | 2017-07-23 10:23 | NUR ---
To OR via bed. few AM meds given w/ sip of water.
--- NOTE | 2017-07-23 10:46 | NUR ---
Insulin pump removed prior to departure to surgery.
--- NOTE | 2017-07-23 12:20 | NUR ---
Returned from OR . dressing intact to left heel. 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
--- NOTE | 2017-07-23 15:17 | NUR ---
MARYTOD [id number] Please refer to the physician's history and physical for past medical history, comorbid conditions, and allergies. Diagnosis: SEVERE SEPSIS HEEL ULCER DUE TO DM Ricardo Score: 16,AT RISK WOUND DESCRIPTIONS: Location of the wound: right heel Type of wound: diabetic foot ulcer Size: 1.2cm x 1cm x 1.1cm Tunneling: none Undermining: none Sinus Tract: none Presence of Exudate: none Amount: Light Color: [place] Odor: None Periwound Skin Appearance: Normal Wound edges: approximated Location of the wound: right 3rd toe Type of wound: diabetic foot ulcer Size: 0.3cm x 0.3cm x 0.1cm Tunneling: none Undermining: none Sinus Tract: none Presence of Exudate: none Amount: None Color: [place] Odor: None Periwound Skin Appearance: Normal Wound edges: approximated Location of the wound: right second toe Type of wound: diabetic foot ulcer Size: 0.5cm x 0.3cm x 0.2cm Tunneling: none Undermining: none Sinus Tract: none Presence of Exudate: none Amount: None Color: [place] Odor: None Periwound Skin Appearance: Normal Wound edges: approximated Location of the wound: left 3rd toe Type of wound: diabetic foot ulcer Thickness: Partial Size: 0.4cm x 0.3cm 0.1cm Tunneling: none Undermining: none Sinus Tract: none Presence of Exudate: Amount: None Color: [place] Odor: None Periwound Skin Appearance: Normal Wound edges: approximated Pain (associated with wound): patient denied at time of assessment How does patient state this happened? patient has been seen in the Wound care center for several months for these areas. Surgical dressing intact to left foot and ankle. No drainage noted to dressing at time of assessment. Surface the patient is resting on: Position Pro SKIN PREVENTION RECOMMENDATION: 1. Pressure redistribution support surface as appropriate 2. Elevate heels 3. Remove boots/TEDS every shift and reapply 4. Head of bed 30 degrees as tolerated 5. Assess nutrition and hydration 6. Manage moisture 7. Avoid the use of containment devices while in bed 8. Use absorptive products on surfaces limit layers of linens on bed 9. Turn and reposition every 1-2 hours in bed and every 1 hour in chair as tolerated 10. Weight shifts every 15 minutes while up in chair 11. Offloading with pillows or device to keep heels elevated off bed 12. Monitor skin at least every shift 13. Inspect under medical devices twice a day WOUND TREATMENT RECOMMENDATIONS: Cleanse wounds with NS. Apply sureprep to periwound and allow to dry and apply therahoney and dry dressing.
--- NOTE | 2017-07-23 15:38 | NUR ---
Dr. Krueger in to see pt. post op requests that outer dressing be changed daily and that packing remain intact , states he will remove it himself. concern was voiced for margins of incision . Requests to be notified if margins change . Heel raisers placed bilaterally.
[2017-07-23 16:15] LABS: BILIRUBIN 1+ (NEGATIVE); BLOOD NEGATIVE (NEGATIVE); CLARITY CLOUDY (CLEAR); COLOR YELLOW (YELLOW); GLUCOSE NEGATIVE (NEGATIVE); KETONE TRACE (NEGATIVE); LEUKO ESTERASE NEGATIVE (NEGATIVE); NITRITE NEGATIVE (NEGATIVE); SPECIFIC GRAVITY >= 1.030 (1.005-1.030); UROBILINOGEN 0.2 E.U./dl (0.2-1.0)
[2017-07-23 16:31] LABS: BACTERIA 2+
[2017-07-24] VITALS: BP 147/64
[2017-07-24 04:00] VITALS: BP 120/57
--- NOTE | 2017-07-24 06:54 | NUR ---
PATIENT DENIES ANY COMPLAINTS AT THIS TIME.CHANGED PATIENTS DRESSINGS ON RIGHT TOES PER ORDER.
[2017-07-24 08:00] VITALS: BP 94/52
--- NOTE | 2017-07-24 11:17 | NUR ---
In to see patient to discuss possible snf placement for wound care. Patient stated she wants to go to [facility] in [place] (critical access [facility]). Contacted [facility] and faxed referral, waiting on accpetance.
[2017-07-24 12:00] VITALS: BP 128/59
--- NOTE | 2017-07-24 12:24 | NUR ---
Patient has been accepted to [facility] ([facility]) Formerly known as [place]. Starting precert, waiting on auth.
--- NOTE | 2017-07-24 13:18 | NUR ---
PT WAS OFF THE FLOOR FOR A NUCLEAR MEDICINE PROCEDURE DURING 1100AM CHECK.
--- NOTE | 2017-07-24 15:15 | NUR ---
At bedside with Dr. Krueger while he removed post op dressing. He stated to consult podiatry to make sure she doesn't need more surgery do to MRI results. Dressing changed per Dr. Vargas orders at bedside. Patient stated at 1331 that she was having diffculty holding her cell phone in her left hand and started to notice this a half hour ago but didn't want to say anything to anyone. She also stated that her was concerned that she was slurring her speech and how she could go from talking to normal to sounding like this. Patient was also able to lift her left leg prior to this time and states that it is very weak. Speech is slurred. This nurse voiced concern to the nurse caring for the patient Clarissa Ott and Zee Ott.
--- NOTE | 2017-07-24 15:50 | NUR ---
DR. CAPUTO NOTIFIED OF NEW ONSET COMPLAINTS OF LEFT HAND AND LEFT LEG WEAKNESS, INCREASE IN DROWSINESS, SLURRED SPEECH, INABILITY TO VISUALLY FOCUS. NEW ORDER RECEIVED FOR CT HEAD. MRI OF FOOT REPORT REVIEWED. RANDOLPH OLSEN RN
[2017-07-24 16:00] VITALS: BP 114/57
--- NOTE | 2017-07-24 16:54 | NUR ---
'S ANSWERING SERVICE NOTIFIED OF CONSULT.
[2017-07-24 20:00] VITALS: BP 158/69
[2017-07-25] VITALS: BP 144/53
[2017-07-25 04:00] VITALS: BP 154/91
[2017-07-25 06:46] LABS: CREATININE 1.27 mg/dL (0.55-1.02)
[2017-07-25 08:00] VITALS: BP 119/67
--- NOTE | 2017-07-25 08:32 | NUR ---
Patient being discharged to [facility] in [facility]. Transportation scheduled for 11:00 am with [facility]. [facility] and nursing notified.
--- NOTE | 2017-07-25 10:24 | NUR ---
Patient was scheduled to be transported to [facility] at 11:00, [facility] called and stated patient cannot go until the service center representative sees this patient. [facility]ester on hold, [facility] notified.
--- NOTE | 2017-07-25 10:30 | NUR ---
NOTIFIED DR. MAYEN'S INSTALLER INSPECTOR FINAL REGARDING NEED FOR CONSULTATION PRIOR TO TODAY'S PENDING TRANSFER TO LT[facility]ENTER PER SHARRI BEAUCHAMP'S NOTIFICATION OF DR. JOSEPH'S REQUEST. NOTIFIED DOCTOR WILL BE HERE EARLY THIS AFTERNOON. RANDOLPH OLSEN RN
[2017-07-25 12:00] VITALS: BP 130/67
--- NOTE | 2017-07-25 14:38 | NUR ---
[facility] HERE TO DISCHARGE PATIENT TO [facility]. REPORT CALLED TO JENNIFER BROWN.
== END 2017-07-25 14:38 | DRG 853 ==
LOC: ED 17:12 → EDHOLD 19:21 → 5E 19:21 → ICCU 19:21 → 5E 19:31 → ICCU 07-23 08:13
PROVIDERS: Physician Assistant; ADMIT Internal Medicine
PROC: 0J9R0ZZ Drainage of Left Foot Subcutaneous Tissue and Fascia, Open Approach (ICD-10-PCS; principal; 2017-07-23)
PROC: 0JDR0ZZ Extraction of Left Foot Subcutaneous Tissue and Fascia, Open Approach (ICD-10-PCS; principal; 2017-07-23)
PROC: 5A09357 Assistance with Respiratory Ventilation, Less than 24 Consecutive Hours, Continuous Positive Airway Pressure (ICD-10-PCS; 2017-07-23)
DX: A41.9 Sepsis, unspecified organism (principal); J96.21 Acute and chronic respiratory failure with hypoxia; E11.621 Type 2 diabetes mellitus with foot ulcer; E11.22 Type 2 diabetes mellitus with diabetic chronic kidney disease; I95.9 Hypotension, unspecified; E11.69 Type 2 diabetes mellitus with other specified complication; E24.9 Cushing's syndrome, unspecified; L03.116 Cellulitis of left lower limb; M86.8X7 Other osteomyelitis, ankle and foot; L02.612 Cutaneous abscess of left foot; L97.429 Non-pressure chronic ulcer of left heel and midfoot with unspecified severity; R65.20 Severe sepsis without septic shock; S90.822A Blister (nonthermal), left foot, initial encounter; G89.29 Other chronic pain; M54.9 Dorsalgia, unspecified; J44.9 Chronic obstructive pulmonary disease, unspecified; N18.9 Chronic kidney disease, unspecified; Z79.4 Long term (current) use of insulin; Z86.14 Personal history of Methicillin resistant Staphylococcus aureus infection; Z88.5 Allergy status to narcotic agent; Z88.2 Allergy status to sulfonamides; Z88.1 Allergy status to other antibiotic agents; Z82.49 Family history of ischemic heart disease and other diseases of the circulatory system; Z80.8 Family history of malignant neoplasm of other organs or systems; Z82.5 Family history of asthma and other chronic lower respiratory diseases; X58.XXXA Exposure to other specified factors, initial encounter; Y93.89 Activity, other specified; Y92.89 Other specified places as the place of occurrence of the external cause; Y99.8 Other external cause status; I10 Essential (primary) hypertension; Z87.01 Personal history of pneumonia (recurrent); Z87.440 Personal history of urinary (tract) infections; Z79.899 Other long term (current) drug therapy

== ENCOUNTER → 2017-09-20 | Outpatient (CLI) | payer BC, MEDICARE ==
[~2017-09-20] MED LIST changes: +ACIDOPHILUS1 EAC5 PO; +ARGINAID POWDE1 EACH PO; +BRIMONIDINE TART5 M2 OD; -CALCIUM 600600 M2 PO; +CALCIUM500 M1 PO; +DUONEB 3 MG/3 ML3 M1 INH; +FEROSUL325 MG PO; +HYDROMORPHONE4 M1 PO; +KEFZOL PO; +MELATONIN10 M4 PO; +NAPROXEN500 MG PO; +NATURE'S BLEND F1 MG PO; +NYSTATIN CREAM15 GM T; +PERCOCET 5-3251 EACH PO; +TAMSULOSIN HCL0.4 MG PO; +TEARS NATURALE,15 ML OPH; +TERAZOSIN HCL1 M1 PO; +VITAMIN D2400 UNIT PO; +VOLTAREN100 GM T
== END | disposition home or self-care (01) ==
LOC: WOUNDCARE 01:43
DX: E11.621 Type 2 diabetes mellitus with foot ulcer (principal); L97.412 Non-pressure chronic ulcer of right heel and midfoot with fat layer exposed; L97.422 Non-pressure chronic ulcer of left heel and midfoot with fat layer exposed; L97.511 Non-pressure chronic ulcer of other part of right foot limited to breakdown of skin; L97.811 Non-pressure chronic ulcer of other part of right lower leg limited to breakdown of skin; E11.69 Type 2 diabetes mellitus with other specified complication; M86.8X7 Other osteomyelitis, ankle and foot; Z89.412 Acquired absence of left great toe

== ENCOUNTER 2017-09-23 13:36 | Inpatient (IN) | payer BC, MEDICARE ==
[~2017-09-23] VITALS: Ht 157.4 cm; Wt 135.6 kg
--- NOTE | ~2017-09-23 | DS ---
[place], [place] DISCHARGE SUMMARY NAME: TOD HERNANDEZ UNIT #: [id number] ROOM: 427 DOCTOR: MARYCARMEN LOPEZ MD BIRTHDATE: [birth year] DOS: 09/26/2017 DISCHARGE DIAGNOSES: 1. Cellulitis involving lower abdominal wall and right lower extremity has resolved with treatment. 2. Morbid obesity. 3. Left hip pains to be evaluated by Dr. Dominguez. 4. Better controlled type 2 diabetes mellitus. 5. Chronic respiratory failure and obesity hypoventilation syndrome. 6. Diabetic nephropathy and chronic kidney disease stage 3a. 7. Left heel ulcer and osteomyelitis involving calcaneum in the past, being followed by foot doctor. 8. Chronic poorly healing wounds involving both legs and feet. 9. Chronic obstructive pulmonary disease and chronic respiratory failure. 10. History of candidemia. 11. MediPort placement. HOSPITAL COURSE: The patient presented to [facility] with increasing pain in the right lower extremity. The patient has been chronically sick and required multiple admissions to the hospital and LTAC facilities. The patient was found to have cellulitis involving the right lower extremity and also right lower abdominal skin folds. I got a consult with infectious disease specialist and treated her with IV Ancef. The patient gradually improved along with the pain in the right lower extremity improved with treatment. The patient appears to have achieved maximum benefit from this admission and will be discharged back to custodial on oral Keflex. The redness and swelling has resolved. 1. Right lower extremity swelling and redness for which venous Dopplers were performed to look for DVT, which was negative. 2. Morbid obesity and adult failure to thrive with suboptimal long-term prognosis. 3. Bilateral superficial skin wounds and also left heel wound and previous history of osteomyelitis of the calcaneus. The patient has been following up with wound center and Dr. Krueger, the surgeon, who was consulted to follow her during the hospital stay. 4. Uncontrolled type 2 diabetes mellitus with better controlled blood sugars with insulin pump now. The patient says her sugars have been ranging between 80-140 and 150 mostly recently. 5. Centrilobular emphysema with chronic respiratory failure and obesity hypoventilation syndrome treated with bronchodilators, which have been continued. 6. Diabetic nephropathy, stage 3a chronic kidney failure. DISCHARGE MANAGEMENT: Terazosin 1 mg daily, tamsulosin 0.4 mg daily, Daliresp 500 mcg daily, Paxil 30 mg a day, naproxen 365 mg daily, lisinopril 20 mg a day, furosemide 40 mg b.i.d., Pepcid 40 mg a day, diltiazem CD 240 mg a day, calcium carbonate 500 mg b.i.d., Prandin 1 mg a.c., ____ local application 1% to affected skin, saline drops one drop each eye 4 times a day, brimonidine eye drops affected eye at bedtime 1 drop, DuoNeb every 4 hours as needed, nystatin cream to affected skin b.i.d. until resolved. Pregabalin 100 mg b.i.d., Xanax [place], [place] DISCHARGE SUMMARY NAME: TOD HERNANDEZ UNIT #: [id number] ROOM: [facility] DOCTOR: MARYCARMEN LOPEZ MD BIRTHDATE: [birth year] 0.5 mg b.i.d., Keflex 1000 mg q.i.d., Percocet 5/325 mg q.i.d. p.r.n. for pain. MARYCARMEN LOPEZ MD CM:SARAH [id number] MARYCARMEN LOPEZ MD 09/26/172048 interface
--- NOTE | ~2017-09-23 | CON ---
[place], [place] REPORT OF CONSULTATION NAME: TOD HERNANDEZ UNIT #: [id number] ROOM: 427 DOCTOR: JACQUI FREDERICK,ANA LAURA Dickson BIRTHDATE: [birth year] DOS: 09/23/2017 ADDENDUM: After reviewing the chart, labs radiographs and microbiology, I agree with the above plans as described. We will follow the patient up clinically and adjust accordingly. ANA LAURA OSMAN MD CM:CONSTR:REPORT OF CONSULTATION 2155 09/23/17 2238 interface
--- NOTE | ~2017-09-23 | PR ---
[place], [place] PROGRESS NOTE NAME: TOD HERNANDEZ UNIT #: [id number] ROOM: 427 DOCTOR: MARYCARMEN LOPEZ MD BIRTHDATE: [birth year] DOS: 09/24/2017 SUBJECTIVE: Patient still has swelling involving the right lower extremity and complaining of left hip pain. OBJECTIVE: VITAL SIGNS: Blood pressure 116/46, heart rate 87 beats per minute, breathing 20 times per minute, temperature 98 degrees Fahrenheit. GENERAL APPEARANCE: Morbid obesity. The patient is alert and oriented x 3, in no visible distress. HEENT AND NECK: Exam within normal limits. CARDIOVASCULAR SYSTEM: Heart rate is regular in rate and rhythm. S1 and S2 normally audible. LUNGS: Clear to auscultation. ABDOMEN: Soft, nontender. No obvious organomegaly. Bowel sounds are present. EXTREMITIES: Left heel ulcer with small skin wounds in both lower extremities. IMPRESSION: 1. Cellulitis involving abdominal wall and right lower extremity being treated with the help of Infectious Disease specialists. Patient being treated with Ancef. Infectious Disease specialists are following. No leukocytosis. 2. Morbid obesity. Patient working with Dietary. 3. Uncontrolled type 2 diabetes mellitus. Blood sugars are well controlled at present time. 4. Diabetic nephropathy with chronic kidney disease stage 3A. 5. Chronic respiratory failure and morbid obesity. Patient being treated with DuoNebs, bronchodilators. She has centrilobular emphysema and obesity hypoventilation syndrome. MARYCARMEN LOPEZ MD CM:PNTRANS 45 2 MARYCARMEN LOPEZ MD 09/25/17112 interface
--- NOTE | ~2017-09-23 | WRIGHTHP ---
[place], [place] PATIENT HISTORY AND PHYSICAL EXAM [id number] UNIT #: [id number] ROOM: 427 DOCTOR: MARYCARMEN LOPEZ MD BIRTHDATE: [birth year] DOS: 09/23/2017 HISTORY OF PRESENT ILLNESS: The patient is a 47-year-old female with a past medical history of: 1. Morbid obesity. 2. Chronic wound at the left heel with history of osteomyelitis of the calcaneum. 3. Chronic poorly healing wounds involving both legs and feet. 4. Type 2 diabetes mellitus, uncontrolled. 5. COPD with chronic respiratory failure. 6. History of candidemia. 7. MediPort placement. 8. Diabetic nephropathy, stage 3A chronic kidney disease. The patient presented to the emergency department at [facility] with increasing pain in her right lower extremity. Patient was found to have cellulitis involving the right lower extremity and multiple chronic wounds, especially an open wound at her left heel. Patient was admitted for treatment of cellulitis. Patient was given IV Zosyn in the emergency department and I am keeping her on Ancef and I will let Infectious Disease specialist decide about further management. No chest pain, no increasing shortness of breath, no GI or urinary symptoms. REVIEW OF SYSTEMS: LUNGS: Chronic shortness of breath. GASTROINTESTINAL: No nausea, vomiting, diarrhea or constipation. CARDIOVASCULAR: No palpitations or chest pains. FAMILY HISTORY: Noncontributory. ALLERGIES: KNOWN ALLERGIES TO MORPHINE, SULFA, METOCLOPRAMIDE. SOCIAL HISTORY: Patient denies nicotine, alcohol or drug abuse. MEDICATIONS: Terazosin, tamsulosin which is Flomax, Daliresp, prednisone, Paxil, naproxen, lisinopril, furosemide, Pepcid, diltiazem, Prandin, saline eyedrops, brimonidine, DuoNebs, Lyrica, Xanax. PHYSICAL EXAMINATION: GENERAL: Alert, oriented x 3, morbidly obese, in no visible distress. EXTREMITIES: Bilateral leg superficial wounds and gaping seen, wound at the left heel on the inner side, also redness of the right lower extremity. LABORATORY DATA: Venous Dopplers showed no evidence of DVT in the right lower extremity. No signs of urinary infection. CT of the abdomen and pelvis showed possible pseudocyst of the pancreas, no acute changes, hepatic steatosis. BUN and creatinine of 29 and 1.4. Patient's iron level was low at 33. IMPRESSION: 1. Patient presenting with acute cellulitis involving the right lower extremity [place], [place] PATIENT HISTORY AND PHYSICAL EXAM NAME: TOD HERNANDEZ UNIT #: [id number] ROOM: 427 DOCTOR: MARYCARMEN LOPEZ MD BIRTHDATE: [birth year] with chronic skin changes, superficial ulcerations, to be followed by Wound Care, Infectious Disease specialist and to be treated with Ancef. Patient was given Zosyn in the Emergency Department, but Infectious Diseases to decide on further antibiotic treatment. 2. Open wound on the left heel, which has been treated in the past and also previous history of osteomyelitis involving the calcaneus bone, was being [facility] by Dr. Krueger, who has been consulted again. 3. Morbid obesity. Patient to work with Dietary. 4. Uncontrolled type 2 diabetes mellitus. Blood sugars to be monitored and treated. Patient on insulin pump. Patient says her blood sugars have improved and now ranging between 70-150 mostly with the insulin pump. 5. Diabetic nephropathy, chronic kidney disease stage 3A, to be followed. 6. Chronic respiratory failure with morbid obesity. Patient to be continued on DuoNebs. Patient has centrilobular emphysema. MARYCARMEN LOPEZ MD CM:HISPHYS:PATIENT HISTORY AND PHYSICAL EXAMINATION 06 11 MARYCARMEN LOPEZ MD 09/23/17 231 interface
--- NOTE | ~2017-09-23 | CON ---
[place], [place] REPORT OF CONSULTATION NAME: TOD HERNANDEZ UNIT #: [id number] ROOM: 427 DOCTOR: ELVIA MOULTON,DECEMBER BIRTHDATE: [birth year] DOS: 09/23/2017 HISTORY OF PRESENT ILLNESS: The patient is a 47-year-old female, morbidly obese. She was at [facility]. She was admitted with, she states her temperature max was 100.9. Her white count is 10. She is complaining of severe abdominal pain and right thigh pain. She had a CT of the abdomen and pelvis that showed pancreatic pseudocyst and was unremarkable for acute changes. Ultrasound of the right lower extremity is negative for DVT. Chest x-ray that did not demonstrate any pneumonia. ID is consulted for abdominal wall cellulitis and right thigh cellulitis. PAST MEDICAL HISTORY: Multiple toe amputations for diabetic foot infections as well as recently left heel abscess and wound infection a few months ago, COPD, acute renal failure, avulsion fracture of the right hip, prior issues with lower extremity cellulitis, chronic respiratory failure, diabetic foot ulcers, diabetes, major depression, normocytic anemia, osteoarthritis, patellar bursitis, had tonsillectomy and adenoidectomy, left eye surgery, multiple debridements of foot wounds and amputation of toes. SOCIAL HISTORY: She is now chronically at [facility], occasional alcohol use. No illicit drug use. Nonsmoker. FAMILY MEDICAL HISTORY: Mother of pancreatic cancer. There is also family history of hypertension, asthma and [place]. LABORATORY DATA: UA was negative for pyuria. WBC is 10.8, platelets 244. BUN 29, creatinine 1.4. LFTs within normal limits. Lipase 164. REVIEW OF SYSTEMS: As above in history of present illness. She states she woke up this morning with severe pain of her right lower abdominal wall and leg, had some nausea this morning. Temperature max has been 100.9 today. No rash or itch. No shortness of breath. She has chronic lower extremity edema, multiple toes amputated previously for her diabetic foot infection. She does have an ongoing wound on the left heel, which she has had since at least July, remains on insulin pump. She is requesting Demerol or Dilaudid as well as Percocet. Further review of systems is negative. Further review of systems is unremarkable. CURRENT MEDICATIONS: Hytrin, Flomax, Daliresp, prednisone, Paxil, naproxen, Zestril, Lasix, Pepcid, Cardizem, Os-Shaun, Prandin, Lyrica, nystatin, Dilaudid, Voltaren, Alphagan eyedrops, Xanax, Ancef, Percocet, DuoNeb. She did receive a dose of Zosyn, which has been stopped. PHYSICAL EXAMINATION: VITAL SIGNS: Temperature 99.0, pulse 96, respirations 20, BP 144/68. GENERAL: A 47-year-old morbidly obese female. HEAD, EYES, EARS, NOSE AND THROAT: Normocephalic. No thrush. LUNGS: Clear to auscultation bilaterally, though auscultation is difficult given body habitus. Respirations even and unlabored. HEART: Regular rhythm. No murmur appreciated. [place], [place] REPORT OF CONSULTATION NAME: TOD HERNANDEZ UNIT #: [id number] ROOM: 427 DOCTOR: ELVIA MOULTON,DECEMBER BIRTHDATE: [birth year] ABDOMEN: Soft, huge, exquisitely tender in the right abdomen. SKIN: She does have some erythema. There are some small splits along the fold of the pannus. There is no odor, no purulent discharge. She also has a few areas under the right breast and some erythema of the right upper thigh. The patient has a florid complexion and some of the erythema is difficult to evaluate. It is splotchy over her mid epigastric area. EXTREMITIES: bilateral lower extremities with +2 edema. Multiple digits missing from prior amputations, left heel wound of little depth is fairly clean, somewhat dry. No odor or cellulitis. The wound itself is pink. No bone exposed. She has a Hep-Lock in place in the right upper extremity. No phlebitis. ASSESSMENT: Abdominal wall and right thigh cellulitis. PLAN: Her last few screens for MRSA have been negative. She had group B strep from her heel in July. At this point, we will go ahead and continue the Ancef, check a MRSA screen. If that is positive, she will need to be covered with vancomycin. I did review prior cultures from prior hospitalizations. RAYMON KENNEY GAN ANA LAURA OSMAN MD CM:CONSTR:REPORT OF CONSULTATION 1937 09/24/17 0703 interface
--- NOTE | ~2017-09-23 | PR ---
[place], [place] PROGRESS NOTE NAME: TOD HENRANDEZ UNIT #: [id number] ROOM: 427 DOCTOR: MARYCARMEN LOPEZ MD BIRTHDATE: [birth year] DOS: 09/25/2017 SUBJECTIVE: The patient's right lower extremity pain and swelling and redness is improving, but she continues to have left hip pain. OBJECTIVE: VITAL SIGNS: Blood pressure 110/48, heart rate is 78 beats per minute, breathing 16 times per minute, temperature 98 degrees Fahrenheit. GENERAL APPEARANCE: Morbid obesity. HEENT AND NECK: Exam within normal limits. CARDIOVASCULAR SYSTEM: Heart rate is regular in rate and rhythm. S1 and S2 normally audible. LUNGS: Clear to auscultation. ABDOMEN: Soft, nontender. No obvious organomegaly. Bowel sounds are present. EXTREMITIES: Without significant cyanosis or edema. IMPRESSION: 1. Cellulitis involving the abdominal wall and the right lower extremity is being treated with cefazolin and improving. The patient is being followed by Infectious Disease specialist. 2. Morbid obesity. The patient is working with dietary. 3. Left hip pains to be evaluated by orthopedic surgeon, Dr. Dominguez, tomorrow. 4. Uncontrolled diabetes mellitus with better controlled blood sugars these days. 5. Chronic respiratory failure with morbid obesity and obesity hypoventilation syndrome being treated with bronchodilators. 6. Diabetic nephropathy, chronic kidney disease stage 3A. Kidney function is being monitored. MARYCARMEN LOPEZ MD CM:PNTRANS [id number] MARYCARMEN LOPEZ MD 09/25/17 2330 interface
[~2017-09-23 13:36] MED LIST changes: -ACIDOPHILUS1 EAC5 PO; -ARGINAID POWDE1 EACH PO; -BRIMONIDINE TART5 M2 OD; -FEROSUL325 MG PO; -HYDROMORPHONE4 M1 PO; -KEFZOL PO; -MELATONIN10 M4 PO; -NAPROXEN500 MG PO; -NATURE'S BLEND F1 MG PO; -NYSTATIN CREAM15 GM T; -PERCOCET 5-3251 EACH PO; -TAMSULOSIN HCL0.4 MG PO; -TEARS NATURALE,15 ML OPH; -TERAZOSIN HCL1 M1 PO; -VITAMIN D2400 UNIT PO; -VOLTAREN100 GM T
[2017-09-23 13:42] VITALS: BP 117/45
[2017-09-23 14:06] LABS: BASO % 0.1 % (0.0-1.0); EOS # 0.1 10*3/uL (0.0-0.4); HEMATOCRIT 28.2 % (37.0-47.0); HEMOGLOBIN 8.4 g/dl (12.0-16.0); LYMPH % 9.5 % (27.0-41.0); MEAN CELL VOLUME 92.5 fl (81.0-99.0); MEAN CORPUSCULAR HGB 27.5 pg (27.0-31.0); MEAN CORPUSCULAR HGB CONC 29.8 g/dl (33.0-37.0); MEAN PLATELET VOLUME 10.7 fl (9.6-12.3); MONO # 0.5 10*3/uL (0.1-1.0); MONO % 4.3 % (3.0-9.0); NEUT # 9.1 10*3/uL (2.3-7.9); NEUT % 84.4 % (47.0-73.0); PLATELET COUNT AUTOMATED 244 10*3/uL (130-400); RED BLOOD COUNT 3.05 10*6/uL (4.10-5.10); RED CELL DISTRI WIDTH 17.7 % (0-14.5); WHITE BLOOD COUNT 10.8 10*3/uL (4.8-10.8)
[2017-09-23 14:15] LABS: ACT PARTIAL THROMBO TIME 28.4 SECONDS (20.8-31.5)
[2017-09-23 14:23] LABS: ALBUMIN 2.9 gm/dl (3.1-4.5); ALKALINE PHOSPHATASE 63 U/L (45-117); BUN 29 mg/dl (7-24); CHLORIDE 104 mmol/L (98-107); LIPASE 164 U/L (73-393); POTASSIUM 3.6 mmol/L (3.5-5.1); SGOT/AST 9 IU/L (3-35); SGPT/ALT 18 U/L (12-78); SODIUM 144 mmol/L (136-145); TOTAL PROTEIN 6.2 gm/dL (6.4-8.2)
[2017-09-23 14:26] LABS: TROPONIN I < 0.015 ng/ml (<0.045)
[2017-09-23] MEDS ORDERED: ARGINAID POWDE1 EACH PO (14:29)
[2017-09-23] MEDS ORDERED: BRIMONIDINE TART5 M2 OD (14:30)
[2017-09-23 15:05] LABS: BILIRUBIN NEGATIVE (NEGATIVE); BLOOD NEGATIVE (NEGATIVE); CLARITY CLEAR (CLEAR); COLOR YELLOW (YELLOW); GLUCOSE NEGATIVE (NEGATIVE); KETONE NEGATIVE (NEGATIVE); LEUKO ESTERASE NEGATIVE (NEGATIVE); NITRITE NEGATIVE (NEGATIVE); SPECIFIC GRAVITY <= 1.005 (1.005-1.030); UROBILINOGEN 0.2 E.U./dl (0.2-1.0)
[2017-09-23 15:28] LABS: EPITHELIAL CELLS 0-2; RBC 0-2 rbc/hpf (0-2)
[2017-09-23] MEDS ORDERED: VITAMIN D2400 UNIT PO (15:34)
[2017-09-23] MEDS ORDERED: FEROSUL325 MG PO (15:35)
[2017-09-23] MEDS ORDERED: NATURE'S BLEND F1 MG PO (15:37)
[2017-09-23] MEDS ORDERED: HYDROMORPHONE4 M1 PO (15:39)
[2017-09-23] MEDS ORDERED: ACIDOPHILUS1 EAC5 PO (15:39)
[2017-09-23] MEDS ORDERED: LASIX40 MG PO (15:58)
[2017-09-23] MEDS ORDERED: NAPROXEN500 MG PO (16:00)
[2017-09-23] MEDS ORDERED: MELATONIN10 M4 PO (16:00)
[2017-09-23] MEDS ORDERED: NYSTATIN CREAM15 GM T (16:01)
[2017-09-23] MEDS ORDERED: PERCOCET 5-3251 EACH PO (16:04)
[2017-09-23] MEDS ORDERED: TEARS NATURALE,15 ML OPH (16:16)
[2017-09-23] MEDS ORDERED: TAMSULOSIN HCL0.4 MG PO (16:20)
[2017-09-23] MEDS ORDERED: TERAZOSIN HCL1 M1 PO (16:21)
[2017-09-23] MEDS ORDERED: VOLTAREN100 GM T (16:22)
[2017-09-23] MEDS ORDERED: XANAX0.5 MG PO (16:23)
[2017-09-23 16:52] VITALS: BP 144/68
[2017-09-23 17:00] VITALS: BP 111/55
[2017-09-23 20:00] VITALS: BP 123/54
[2017-09-24] VITALS (7 sets, daily range): BP systolic 105–128; BP diastolic 43–59
[2017-09-24 08:00] LABS: BASO % 0.1 % (0.0-1.0); EOS # 0.2 10*3/uL (0.0-0.4); EOS % 2.4 % (1.0-4.0); HEMATOCRIT 27.6 % (37.0-47.0); HEMOGLOBIN 8.1 g/dl (12.0-16.0); LYMPH # 2.3 10*3/uL (1.3-4.4); LYMPH % 23.2 % (27.0-41.0); MEAN CELL VOLUME 93.6 fl (81.0-99.0); MEAN CORPUSCULAR HGB 27.5 pg (27.0-31.0); MEAN CORPUSCULAR HGB CONC 29.3 g/dl (33.0-37.0); MEAN PLATELET VOLUME 10.8 fl (9.6-12.3); MONO # 0.6 10*3/uL (0.1-1.0); NEUT # 6.6 10*3/uL (2.3-7.9); NEUT % 67.6 % (47.0-73.0); PLATELET COUNT AUTOMATED 242 10*3/uL (130-400); RED BLOOD COUNT 2.95 10*6/uL (4.10-5.10); RED CELL DISTRI WIDTH 17.4 % (0-14.5); WHITE BLOOD COUNT 9.8 10*3/uL (4.8-10.8)
[2017-09-24 08:28] LABS: CREATININE 1.3 mg/dL (0.55-1.02); POTASSIUM 3.2 mmol/L (3.5-5.1)
[2017-09-25] VITALS: BP 134/60
[2017-09-25 08:00] VITALS: BP 146/55
[2017-09-25 12:00] VITALS: BP 144/56
[2017-09-25 14:00] VITALS: BP 144/52
[2017-09-25 16:00] VITALS: BP 110/48
[2017-09-25 20:20] VITALS: BP 122/56
[2017-09-26] VITALS: BP 125/51
[2017-09-26 08:00] VITALS: BP 116/40
[2017-09-26 12:00] VITALS: BP 121/64
[2017-09-26 15:56] VITALS: BP 107/33
[2017-09-26] MEDS ORDERED: KEFZOL PO (16:32)
== END 2017-09-26 18:49 | disposition home or self-care (01) | DRG 603 ==
LOC: ED 13:36 → 4E 15:14 → EDHOLD 15:14 → 4E 16:33
PROVIDERS: Emergency Medicine; Internal Medicine
DX: L03.311 Cellulitis of abdominal wall (principal); J96.10 Chronic respiratory failure, unspecified whether with hypoxia or hypercapnia; E11.22 Type 2 diabetes mellitus with diabetic chronic kidney disease; E11.42 Type 2 diabetes mellitus with diabetic polyneuropathy; L03.115 Cellulitis of right lower limb; Z68.43 Body mass index [BMI] 50.0-59.9, adult; E66.2 Morbid (severe) obesity with alveolar hypoventilation; E11.65 Type 2 diabetes mellitus with hyperglycemia; J44.9 Chronic obstructive pulmonary disease, unspecified; J43.2 Centrilobular emphysema; F32.9 Major depressive disorder, single episode, unspecified; N18.3 Chronic kidney disease, stage 3 (moderate); S91.302A Unspecified open wound, left foot, initial encounter; E11.621 Type 2 diabetes mellitus with foot ulcer; L97.529 Non-pressure chronic ulcer of other part of left foot with unspecified severity; I12.9 Hypertensive chronic kidney disease with stage 1 through stage 4 chronic kidney disease, or unspecified chronic kidney disease; M47.896 Other spondylosis, lumbar region; L97.502 Non-pressure chronic ulcer of other part of unspecified foot with fat layer exposed; S81.811A Laceration without foreign body, right lower leg, initial encounter; R62.7 Adult failure to thrive; Z79.4 Long term (current) use of insulin; Z87.01 Personal history of pneumonia (recurrent); Z87.81 Personal history of (healed) traumatic fracture; Z87.440 Personal history of urinary (tract) infections; Z79.51 Long term (current) use of inhaled steroids; Z89.429 Acquired absence of other toe(s), unspecified side; X58.XXXA Exposure to other specified factors, initial encounter; Y93.89 Activity, other specified; Y92.89 Other specified places as the place of occurrence of the external cause; Y99.8 Other external cause status; Z88.2 Allergy status to sulfonamides; Z88.6 Allergy status to analgesic agent; Z88.8 Allergy status to other drugs, medicaments and biological substances; Z99.81 Dependence on supplemental oxygen; Z80.0 Family history of malignant neoplasm of digestive organs; Z82.49 Family history of ischemic heart disease and other diseases of the circulatory system; Z82.5 Family history of asthma and other chronic lower respiratory diseases

== ENCOUNTER → 2017-10-04 | Outpatient (CLI) | payer BC ==
[~2017-10-04] MED LIST changes: +ACIDOPHILUS1 EAC5 PO; +ARGINAID POWDE1 EACH PO; +BRIMONIDINE TART5 M2 OD; +FEROSUL325 MG PO; +HYDROMORPHONE4 M1 PO; +KEFZOL PO; +MELATONIN10 M4 PO; +NAPROXEN500 MG PO; +NATURE'S BLEND F1 MG PO; +NYSTATIN CREAM15 GM T; +PERCOCET 5-3251 EACH PO; +TAMSULOSIN HCL0.4 MG PO; +TEARS NATURALE,15 ML OPH; +TERAZOSIN HCL1 M1 PO; +VITAMIN D2400 UNIT PO; +VOLTAREN100 GM T
== END | disposition home or self-care (01) ==
LOC: WOUNDCARE 02:32
DX: E11.621 Type 2 diabetes mellitus with foot ulcer (principal); L89.892 Pressure ulcer of other site, stage 2; L97.412 Non-pressure chronic ulcer of right heel and midfoot with fat layer exposed; L97.422 Non-pressure chronic ulcer of left heel and midfoot with fat layer exposed; L97.511 Non-pressure chronic ulcer of other part of right foot limited to breakdown of skin; E11.622 Type 2 diabetes mellitus with other skin ulcer; L97.811 Non-pressure chronic ulcer of other part of right lower leg limited to breakdown of skin; Z89.412 Acquired absence of left great toe

== ENCOUNTER → 2017-10-11 | Outpatient (CLI) | payer BC | END | disposition home or self-care (01) | LOC: WOUNDCARE 02:01 | DX: E11.621 Type 2 diabetes mellitus with foot ulcer (principal); L97.412 Non-pressure chronic ulcer of right heel and midfoot with fat layer exposed; L97.422 Non-pressure chronic ulcer of left heel and midfoot with fat layer exposed; L89.892 Pressure ulcer of other site, stage 2; L97.511 Non-pressure chronic ulcer of other part of right foot limited to breakdown of skin; E11.622 Type 2 diabetes mellitus with other skin ulcer; L97.811 Non-pressure chronic ulcer of other part of right lower leg limited to breakdown of skin; E11.69 Type 2 diabetes mellitus with other specified complication; M86.8X7 Other osteomyelitis, ankle and foot; Z86.14 Personal history of Methicillin resistant Staphylococcus aureus infection; Z89.412 Acquired absence of left great toe ==

== ENCOUNTER → 2017-10-23 | Emergency (ER) | payer BC ==
[~2017-10-23] MED LIST changes: +CEFAZOLIN2 GM/10 ML IV; +CEPHALEXIN500 M1 PO; +DELTASONE20 M1 PO; +LANTUS SOL100 UNIT/1 SQ; +MAALOX ADVANCE355 M1 PO; +SIMETHICONE80 MG PO; +TYLENOL325 M1 PO; +ZOFRAN4 MG PO
[2017-10-23 09:46] VITALS: BP 131/69
[2017-10-23 11:31] LABS: BASO % 0.3 % (0.0-1.0); EOS # 0.5 10*3/uL (0.0-0.4); EOS % 3.9 % (1.0-4.0); HEMATOCRIT 29.5 % (37.0-47.0); HEMOGLOBIN 8.8 g/dl (12.0-16.0); LYMPH # 2.8 10*3/uL (1.3-4.4); LYMPH % 23.2 % (27.0-41.0); MEAN CELL VOLUME 94.2 fl (81.0-99.0); MEAN CORPUSCULAR HGB 28.1 pg (27.0-31.0); MEAN CORPUSCULAR HGB CONC 29.8 g/dl (33.0-37.0); MEAN PLATELET VOLUME 10.2 fl (9.6-12.3); MONO % 8.2 % (3.0-9.0); NEUT # 7.5 10*3/uL (2.3-7.9); NEUT % 62.7 % (47.0-73.0); NUCLEATED RED BLOOD CELL 0.2 % (0.0-0.0); PLATELET COUNT AUTOMATED 239 10*3/uL (130-400); RED BLOOD COUNT 3.13 10*6/uL (4.10-5.10); RED CELL DISTRI WIDTH 18.1 % (0-14.5); WHITE BLOOD COUNT 11.9 10*3/uL (4.8-10.8)
[2017-10-23 11:45] LABS: ALBUMIN 3.1 gm/dl (3.1-4.5); ALKALINE PHOSPHATASE 81 U/L (45-117); BUN 15 mg/dl (7-24); CHLORIDE 105 mmol/L (98-107); CREATININE 1.06 mg/dL (0.55-1.02); POTASSIUM 3.3 mmol/L (3.5-5.1); SGOT/AST 6 IU/L (3-35); SGPT/ALT 16 U/L (12-78); SODIUM 144 mmol/L (136-145); TOTAL PROTEIN 6.3 gm/dL (6.4-8.2)
== END ==
LOC: ED 09:46
PROVIDERS: Emergency Medicine
DX: L03.115 Cellulitis of right lower limb (principal); J45.909 Unspecified asthma, uncomplicated; G89.29 Other chronic pain; E11.621 Type 2 diabetes mellitus with foot ulcer; L97.419 Non-pressure chronic ulcer of right heel and midfoot with unspecified severity; I10 Essential (primary) hypertension; E66.01 Morbid (severe) obesity due to excess calories; M19.90 Unspecified osteoarthritis, unspecified site; L89.152 Pressure ulcer of sacral region, stage 2; E11.65 Type 2 diabetes mellitus with hyperglycemia; Z98.890 Other specified postprocedural states; Z79.899 Other long term (current) drug therapy; Z79.4 Long term (current) use of insulin; Z88.5 Allergy status to narcotic agent; Z88.8 Allergy status to other drugs, medicaments and biological substances; Z88.1 Allergy status to other antibiotic agents

== ENCOUNTER 2017-10-25 09:23 | Inpatient (IN) | payer BC, MEDICARE ==
[~2017-10-25] VITALS: Ht 157.4 cm; Wt 145.1 kg
--- NOTE | ~2017-10-25 | PR ---
[place], [place] PROGRESS NOTE NAME: TOD HERNANDEZ UNIT #: [id number] ROOM: 518 DOCTOR: MARYCARMEN LOPEZ MD BIRTHDATE: [birth year] DOS: SUBJECTIVE: The patient says she is having flu-type symptoms. She is feeling sick. OBJECTIVE: VITAL SIGNS: Blood pressure 130/50, heart rate of 126 beats per minute, breathing 24 times per minute, temperature of 99.4 degrees Fahrenheit. GENERAL APPEARANCE: Morbid obesity. HEENT AND NECK: Exam within normal limits. CARDIOVASCULAR SYSTEM: Heart rate is regular in rate and rhythm. S1 and S2 normally audible. LUNGS: Clear to auscultation. ABDOMEN: Soft, nontender. No obvious organomegaly. Bowel sounds are present. EXTREMITIES: Left inner heel chronic ulcer and swelling and redness of the right leg. IMPRESSION: 1. The patient with cellulitis of the right leg with white cell count of 12,400. Normal serum electrolytes. 2. Morbid obesity. We are taking bedsore precautions and turning her every 2 hours and using an air mattress. The patient has some acute illness with mild fever and increase in respiratory rate and heart rate, but no increase in temperature. We will follow her closely and get a pulmonary consult if she shows signs of respiratory difficulty. 3. Obesity, hypoventilation syndrome with centrilobular emphysema with chronic respiratory failure and oxygen dependence. The patient on bronchodilators. 4. Type 2 diabetes mellitus. Blood sugars are being monitored and treated. 5. Nonhealing wound of the left heel, being followed by Dr. Krueger. 6. Cellulitis and swelling of the right leg is being treated with IV vancomycin. Infectious Disease specialist, Dr. Metzger, is following her. MARYCARMEN LOPEZ MD CM:PNTRANS 06 MARYCARMEN LOPEZ MD 10/26/172104 interface
--- NOTE | ~2017-10-25 | WRIGHTHP ---
[place], [place] PATIENT HISTORY AND PHYSICAL EXAM NAME: TOD HERNANDEZ [facility] #: [id number] UNIT #: [id number] ROOM: 518 DOCTOR: MARYCARMEN LOPEZ MD BIRTHDATE: [birth year] DOS: 10/25/2017 HISTORY OF PRESENT ILLNESS: The patient is a 47-year-old female with a past medical history of: 1. Morbid obesity. 2. Type 2 diabetes mellitus. 3. Obesity hypoventilation syndrome and chronic respiratory failure, requires oxygen. 4. Diabetic nephropathy with chronic kidney disease stage 3a. 5. Chronic left heel ulcer with osteomyelitis involving calcaneum in the past, followed by Podiatry. 6. Chronic poorly healing wounds involving both legs and feet. 7. COPD and chronic respiratory failure. 8. MediPort placement for IV access. The patient was sent over from the [facility] by Dr. Papi Krueger, her surgeon for cellulitis involving the right lower extremity. She was checked for DVT because of the swelling of the leg and there were no blood clots. After admission, there is no chest pain, shortness of breath. No other GI or urinary symptoms. REVIEW OF SYSTEMS: LUNGS: No increasing shortness of breath, but the patient is chronically on oxygen for chronic respiratory failure. GASTROINTESTINAL: No nausea, vomiting, diarrhea or constipation. CARDIOVASCULAR: No chest pain. No palpitations. FAMILY HISTORY: Noncontributory. SOCIAL HISTORY: The patient has been residing at nursing facilities for many months now. ALLERGIES: Known allergies to MORPHINE. HOME MEDICATIONS: Insulin, terazosin, Flomax, Daliresp, prednisone, Paxil, naproxen, brimonidine eyedrops, furosemide, ____, diclofenac, simethicone, ondansetron, DuoNeb, Lyrica, Xanax, Percocet. PHYSICAL EXAMINATION: GENERAL: Alert, oriented x 3, morbidly obese with generalized weakness. HEENT AND NECK: Extraocular movements are intact. Sclerae are anicteric. Oral mucosa is moist and clean. No obvious facial weakness. Neck is supple without any lymphadenopathy. No thyromegaly. No JVD. No carotid arterial bruits. LUNGS: Clear to auscultation. No wheezing. No rhonchi. CARDIOVASCULAR SYSTEM: Heart rate is regular in rate and rhythm. S1 and S2 normally audible. No significant murmur or any other abnormal cardiac sounds. ABDOMEN: Soft, nontender. No obvious organomegaly. Bowel sounds are present. No obvious herniation. EXTREMITIES: Right leg swelling and redness, with left big toe amputation and chronic nonhealing left heel wound on the inner side of the heel. [place], [place] PATIENT HISTORY AND PHYSICAL EXAM NAME: TOD HERNANDEZ UNIT #: [id number] ROOM: 518 DOCTOR: MARYCARMEN LOPEZ MD BIRTHDATE: [birth year] CENTRAL NERVOUS SYSTEM: Alert and oriented x 3. Cranial nerves II-XII are intact. Speech is normal. The patient is able to move all extremities. Normal muscle strength. Deep tendon reflexes are equal on both sides. Plantars were downgoing. CHEST: MediPort placement in her chest. LABORATORY DATA: Blood culture is negative. Right leg venous Dopplers without blood clots. Normal serum electrolytes. Albumin low at 2.9. Lactic acid level was normal. No leukocytosis. Hemoglobin of 9. IMPRESSION: 1. The patient with acute cellulitis involving the right leg, for which she is being admitted and now advertising consultant Infectious Disease specialist to follow her and help with treatment. 2. Chronic nonhealing wounds of the legs with left heel wound, which will be followed by her surgeon, Dr. Papi Krueger for wound care. 3. Type 2 diabetes mellitus. Blood sugar is to be monitored and treated. They have been reasonably controlled recently. 4. Morbid obesity. We will take bedsore precautions. The patient to work with dietary and use an air mattress and take fall precautions. 5. Obesity hypoventilation with centrilobular emphysema and chronic respiratory failure with oxygen dependence. We will continue bronchodilators and oxygen therapy. MARYCARMEN LOPEZ MD CM:HISPHYS:PATIENT HISTORY AND PHYSICAL EXAMINATION 160 173 MARYCARMEN LOPEZ MD 10/25/17 1728 interface
--- NOTE | ~2017-10-25 | PR ---
[place], [place] PROGRESS NOTE NAME: TOD HERNANDEZ UNIT #: [id number] ROOM: 518 DOCTOR: MARYCARMEN LOPEZ MD BIRTHDATE: [birth year] DOS: ADDENDUM See last dictation of yesterday's discharge summary for full details. IMPRESSION: 1. The patient was admitted for right leg cellulitis for which she is going to receive 2 more weeks of IV Ancef as ordered by Infectious Diseases specialist, Dr. Metzger. 2. Hypokalemia to be treated with extra potassium supplements. 3. Morbid obesity followed by dietary, the patient is watching her diet. 4. Diabetic nephropathy, stage 3A, chronic kidney disease. 5. Chronic obstructive pulmonary disease and chronic respiratory failure. 6. Type 2 diabetes mellitus, uncontrolled. The patient is on insulin pump at home. GENERAL APPEARANCE: The patient is alert and oriented x 3, in no visible distress. VITAL SIGNS: Blood pressure 129/60, heart rate 94 beats, breathing 20 times a minute, temperature of 98 degrees Fahrenheit. HEENT AND NECK: Extraocular movements are intact. Sclerae are anicteric. Oral mucosa is moist and clean. No obvious facial weakness. Neck is supple without any lymphadenopathy. No thyromegaly. No JVD. No carotid arterial bruits. LUNGS: Clear to auscultation. No wheezing. No rhonchi. CARDIOVASCULAR SYSTEM: Heart rate is regular in rate and rhythm. S1 and S2 normally audible. No significant murmur or any other abnormal cardiac sounds. ABDOMEN: Soft, nontender. No obvious organomegaly. Bowel sounds are present. No obvious herniation. EXTREMITIES: Generalized weakness and morbid obesity in left heel nonhealing ulcer and swelling of the right leg, which is improving. CENTRAL NERVOUS SYSTEM: Alert and oriented x 3. Cranial nerves II-XII are intact. Speech is normal. The patient is able to move all extremities. Normal muscle strength. Deep tendon reflexes are equal on both sides. Plantars were downgoing. [place], [place] PROGRESS NOTE NAME: TOD HERNANDEZ UNIT #: [id number] ROOM: 518 DOCTOR: MARYCARMEN LOPEZ MD BIRTHDATE: [birth year] MARYCARMEN LOPEZ MD CM:ARTI [id number] MARYCARMEN LOPEZ MD 10/30/17 2137 interface
--- NOTE | ~2017-10-25 | PR ---
[place], [place] PROGRESS NOTE NAME: TOD HERNANDEZ UNIT #: [id number] ROOM: 518 DOCTOR: MARYCARMEN LOPEZ MD BIRTHDATE: [birth year] DOS: 10/27/2017 SUBJECTIVE: The patient is complaining of pain in her elbow. OBJECTIVE: VITAL SIGNS: Blood pressure 125/47, heart rate of 103 beats per minute, breathing 20 times per minute, temperature of 99.9 degrees Fahrenheit. GENERAL APPEARANCE: The patient is alert and oriented x 3, in no visible distress. Obese. HEENT AND NECK: Exam within normal limits. CARDIOVASCULAR SYSTEM: Heart rate is regular in rate and rhythm. S1 and S2 normally audible. LUNGS: Clear to auscultation. ABDOMEN: Soft, nontender. No obvious organomegaly. Bowel sounds are present. EXTREMITIES: Some swelling and redness in the right leg is resolving. The patient also has a left heel ulcer, which is chronic, on the inner side. IMPRESSION AND PLAN: 1. Cellulitis of the right leg with redness and swelling, improving. White cell count at 12,400 yesterday; I will repeat it tomorrow. 2. The patient has some complains of elbow swelling, for which she will be evaluated by orthopedic surgeon, Dr. Dominguez. 3. Nonhealing wound at the left heel, being followed by Dr. Krueger. 4. Type 2 diabetes mellitus. Blood sugars being monitored and treated. 5. Morbid obesity. The patient working with dietary. 6. Cellulitis, improving with treatment with vancomycin. Infectious Disease specialists following. MARYCARMEN LOPEZ MD CM:PNTRANS [id number] MARYCARMEN LOPEZ MD 10/27/17 2339 interface
--- NOTE | ~2017-10-25 | PR ---
[place], [place] PROGRESS NOTE NAME: TOD HERNANDEZ UNIT #: [id number] ROOM: 518 DOCTOR: MARYCARMEN LOPEZ MD BIRTHDATE: [birth year] DOS: 10/28/2017 SUBJECTIVE: The patient is feeling slightly better today. Pain in her leg is subsiding. OBJECTIVE: VITAL SIGNS: Blood pressure 110/48, heart rate 99 beats per minute, breathing 22 times per minute, temperature 98 degrees Fahrenheit. GENERAL: Morbidly obese and generalized weakness. HEENT AND NECK: Exam within normal limits. CARDIOVASCULAR SYSTEM: Heart rate is regular in rate and rhythm. S1 and S2 normally audible. LUNGS: Clear to auscultation. ABDOMEN: Soft, nontender. No obvious organomegaly. Bowel sounds are present. EXTREMITIES: Left heel nonhealing chronic wound. IMPRESSION: 1. The patient with right leg cellulitis and swelling, starting to improve. I will repeat her blood counts. 2. Right elbow swelling, for which she will be seen by Dr. Dominguez. 3. Type 2 diabetes mellitus. Blood sugar is being monitored and treated. 4. Morbid obesity. The patient is working with Dietary. 5. Influenzae A and B antibodies were negative. MARYCARMEN LOPEZ MD CM:PNTRANS [id number] MARYCARMEN LOPEZ MD 10/28/17 2030 interface
--- NOTE | ~2017-10-25 | DS ---
[place], [place] DISCHARGE SUMMARY NAME: [facility] [id number] UNIT #: [id number] ROOM: 518 DOCTOR: MARYCARMEN LOPEZ MD BIRTHDATE: [birth year] DOS: DISCHARGE DIAGNOSES: The patient is a 47-year-old female with a past medical history of: 1. Morbid obesity. 2. Chronic nonhealing left heel wound with history of osteomyelitis of the calcaneus bone. 3. Diabetic nephropathy stage 3a, chronic kidney disease. 4. MediPort placement for venous access. 5. History of chronic obstructive pulmonary disease with chronic respiratory failure and obesity hypoventilation syndrome. 6. Type 2 diabetes mellitus, uncontrolled, now patient has insulin pump. HOSPITAL COURSE: The patient presented to [facility] with increasing pain and swelling in the right lower extremity. Venous Dopplers were negative for DVT and she was found to have extensive cellulitis, which was treated with intravenous vancomycin and cefazolin at the hospital. The patient was followed by Dr. Jarett Metzger, the ID specialist and she appears to have achieved maximum benefit from this admission. The cellulitis is resolving and the swelling has improved. The case was discussed with Dr. Metzger today and the patient will be discharged back to long term on oral antibiotics. Morbid obesity. The patient worked with Dietary. Her weights are being monitored. We are taking bedsore precautions with every 2 hour turning and air mattress was used. 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 Major depression, recurrent, moderate, treated with Paxil. Type 2 diabetes mellitus with uncontrolled blood sugars. The patient uses her insulin pump normally and blood sugars have improved. The patient was kept on insulin during her stay at the hospital and blood sugars were monitored. Olecranon bursitis involving right elbow, to be seen by Dr. Dominguez, the orthopedic surgeon. Diabetic nephropathy, chronic kidney disease stage 3a. History of left heel nonhealing ulcer with history of osteomyelitis of the calcaneus bone, followed by Dr. Krueger, the surgeon at wound center and he also saw her during this hospital admission. MediPort placement for IV access. Overall multiple medical problems, adult failure to thrive and poor health with recurrent hospital admissions. LABORATORY DATA: Normal serum electrolytes. Potassium level low at 3.3, being [facility] [place], [place] DISCHARGE SUMMARY NAME: TOD HERNANDEZ UNIT #: [id number] ROOM: 518 DOCTOR: MARYCARMEN LOPEZ MD BIRTHDATE: [birth year] replaced with extra potassium supplements. Hemoglobin 8.3, anemia of chronic disease with white cell count normal at 8700. Blood cultures were negative. Urine cultures grew 75,000 colonies of E. coli sensitive to all antibiotics. DISCHARGE MANAGEMENT: Tylenol 1000 mg every 8 hours regularly for pain, Prandin 1 mg with meals, Os-Shaun with vitamin D 500 mg b.i.d., furosemide 40 mg b.i.d., brimonidine eyedrops 1 drop at bedtime, ondansetron ODT 8 mg every 6 hours p.r.n. for nausea and vomiting, Naprosyn 500 mg daily with meals, Paxil 30 mg a day, prednisone 20 mg a day, Daliresp 500 mcg daily, Flomax 0.4 mg daily, terazosin 1 mg daily, Levemir insulin 50 units subcutaneous daily. Check q.i.d. bedside sugars 1 day a week. Oxygen titrate to keep pulse ox 90-96%. More than 1 hour time was spent on patient's management, discussion with consultants, nursing staff and doing her discharge procedure. ADDENDUM See last dictation of yesterday's discharge summary for full details. IMPRESSION: 1. The patient was admitted for right leg cellulitis for which she is going to receive 2 more weeks of IV Ancef as ordered by Infectious Diseases specialist, Dr. Metzger. 2. Hypokalemia to be treated with extra potassium supplements. 3. Morbid obesity followed by dietary, the patient is watching her diet. 4. Diabetic nephropathy, stage 3A, chronic kidney disease. 5. Chronic obstructive pulmonary disease and chronic respiratory failure. 6. Type 2 diabetes mellitus, uncontrolled. The patient is on insulin pump at home. GENERAL APPEARANCE: The patient is alert and oriented x 3, in no visible distress. VITAL SIGNS: Blood pressure 129/60, heart rate 94 beats, breathing 20 times a minute, temperature of 98 degrees Fahrenheit. HEENT AND NECK: Extraocular movements are intact. Sclerae are anicteric. Oral mucosa is moist and clean. No obvious facial weakness. Neck is supple without any lymphadenopathy. No thyromegaly. No JVD. No carotid arterial bruits. LUNGS: Clear to auscultation. No wheezing. No rhonchi. CARDIOVASCULAR SYSTEM: Heart rate is regular in rate and rhythm. S1 and S2 normally audible. No significant murmur or any other abnormal cardiac sounds. ABDOMEN: Soft, nontender. No obvious organomegaly. Bowel sounds are present. No obvious herniation. EXTREMITIES: Generalized weakness and morbid obesity in left heel nonhealing ulcer and swelling of the right leg, which is improving. CENTRAL NERVOUS SYSTEM: Alert and oriented x 3. Cranial nerves II-XII are intact. Speech is normal. The patient is able to move all extremities. Normal muscle strength. Deep tendon reflexes are equal on both sides. Plantars were downgoing. [place], [place] DISCHARGE SUMMARY NAME: TOD HERNANDEZ UNIT #: [id number] ROOM: 518 DOCTOR: MARYCARMEN LOPEZ MD BIRTHDATE: [birth year] MARYCARMEN LOPEZ MD CM:DISCHARG [id number] MARYCARMEN LOPEZ MD 10/30/17 2137 interface
[~2017-10-25 09:23] MED LIST changes: -CEFAZOLIN2 GM/10 ML IV; -CEPHALEXIN500 M1 PO
[2017-10-25 09:43] VITALS: BP 134/54
[2017-10-25 10:50] LABS: BASO # 0.1 10*3/uL (0.0-0.1); BASO % 0.5 % (0.0-1.0); EOS # 0.4 10*3/uL (0.0-0.4); EOS % 3.5 % (1.0-4.0); HEMATOCRIT 29.9 % (37.0-47.0); LYMPH # 3.3 10*3/uL (1.3-4.4); LYMPH % 31.2 % (27.0-41.0); MEAN CELL VOLUME 94.6 fl (81.0-99.0); MEAN CORPUSCULAR HGB 28.5 pg (27.0-31.0); MEAN CORPUSCULAR HGB CONC 30.1 g/dl (33.0-37.0); MEAN PLATELET VOLUME 10.6 fl (9.6-12.3); MONO # 0.8 10*3/uL (0.1-1.0); NEUT # 5.8 10*3/uL (2.3-7.9); NEUT % 55.4 % (47.0-73.0); PLATELET COUNT AUTOMATED 260 10*3/uL (130-400); RED BLOOD COUNT 3.16 10*6/uL (4.10-5.10); WHITE BLOOD COUNT 10.5 10*3/uL (4.8-10.8)
[2017-10-25 11:12] LABS: ALBUMIN 2.9 gm/dl (3.1-4.5); ALKALINE PHOSPHATASE 75 U/L (45-117); BUN 17 mg/dl (7-24); CHLORIDE 106 mmol/L (98-107); CREATININE 1.05 mg/dL (0.55-1.02); POTASSIUM 3.6 mmol/L (3.5-5.1); SGOT/AST 7 IU/L (3-35); SGPT/ALT 12 U/L (12-78); SODIUM 145 mmol/L (136-145); TOTAL PROTEIN 6.3 gm/dL (6.4-8.2)
[2017-10-25 14:15] VITALS: BP 140/68
[2017-10-25 16:00] VITALS: BP 135/75
[2017-10-25 20:00] VITALS: BP 115/56
[2017-10-25 20:12] LABS: BILIRUBIN NEGATIVE (NEGATIVE); BLOOD NEGATIVE (NEGATIVE); CLARITY CLEAR (CLEAR); COLOR YELLOW (YELLOW); GLUCOSE NEGATIVE (NEGATIVE); KETONE NEGATIVE (NEGATIVE); LEUKO ESTERASE TRACE (NEGATIVE); NITRITE NEGATIVE (NEGATIVE); UROBILINOGEN 0.2 E.U./dl (0.2-1.0)
[2017-10-25 20:27] LABS: BACTERIA 1+; EPITHELIAL CELLS 31-40
[2017-10-25 20:28] LABS: WBC 21-30 wbc/hpf (0-5); YEAST TRACE
[2017-10-26] VITALS: BP 136/61
[2017-10-26 06:46] LABS: CREATININE 1.21 mg/dL (0.55-1.02); POTASSIUM 3.9 mmol/L (3.5-5.1)
[2017-10-26 07:01] LABS: BASO # 0.1 10*3/uL (0.0-0.1); BASO % 0.6 % (0.0-1.0); EOS # 0.5 10*3/uL (0.0-0.4); EOS % 4.2 % (1.0-4.0); HEMATOCRIT 31.1 % (37.0-47.0); HEMOGLOBIN 8.9 g/dl (12.0-16.0); LYMPH # 4.1 10*3/uL (1.3-4.4); LYMPH % 32.7 % (27.0-41.0); MEAN CORPUSCULAR HGB 28.3 pg (27.0-31.0); MEAN CORPUSCULAR HGB CONC 28.6 g/dl (33.0-37.0); MEAN PLATELET VOLUME 10.8 fl (9.6-12.3); MONO % 8.4 % (3.0-9.0); NEUT # 6.6 10*3/uL (2.3-7.9); NEUT % 53.2 % (47.0-73.0); NUCLEATED RED BLOOD CELL 0.2 % (0.0-0.0); PLATELET COUNT AUTOMATED 283 10*3/uL (130-400); RED BLOOD COUNT 3.14 10*6/uL (4.10-5.10); RED CELL DISTRI WIDTH 18.5 % (0-14.5); WHITE BLOOD COUNT 12.4 10*3/uL (4.8-10.8)
[2017-10-26 08:00] VITALS: BP 130/50
[2017-10-26 12:00] VITALS: BP 102/52
[2017-10-26 16:00] VITALS: BP 119/65
[2017-10-26 20:00] VITALS: BP 130/69
[2017-10-27] VITALS (7 sets, daily range): BP systolic 107–145; BP diastolic 46–75
[2017-10-28 08:00] VITALS: BP 132/63
[2017-10-28 12:00] VITALS: BP 145/78
[2017-10-28 16:00] VITALS: BP 110/48
[2017-10-28 20:00] VITALS: BP 133/68
[2017-10-29] VITALS: BP 114/50
[2017-10-29 07:39] LABS: BASO % 0.5 % (0.0-1.0); EOS # 0.5 10*3/uL (0.0-0.4); EOS % 5.9 % (1.0-4.0); HEMATOCRIT 28.5 % (37.0-47.0); HEMOGLOBIN 8.3 g/dl (12.0-16.0); LYMPH # 2.6 10*3/uL (1.3-4.4); LYMPH % 30.4 % (27.0-41.0); MEAN CORPUSCULAR HGB 27.9 pg (27.0-31.0); MEAN CORPUSCULAR HGB CONC 29.1 g/dl (33.0-37.0); MEAN PLATELET VOLUME 10.6 fl (9.6-12.3); MONO # 0.8 10*3/uL (0.1-1.0); MONO % 8.9 % (3.0-9.0); NEUT # 4.6 10*3/uL (2.3-7.9); NEUT % 53.3 % (47.0-73.0); NUCLEATED RED BLOOD CELL 0.2 % (0.0-0.0); PLATELET COUNT AUTOMATED 264 10*3/uL (130-400); RED BLOOD COUNT 2.97 10*6/uL (4.10-5.10); RED CELL DISTRI WIDTH 17.2 % (0-14.5); WHITE BLOOD COUNT 8.7 10*3/uL (4.8-10.8)
[2017-10-29 07:51] LABS: BUN 11 mg/dl (7-24); CHLORIDE 97 mmol/L (98-107); POTASSIUM 3.3 mmol/L (3.5-5.1); SODIUM 141 mmol/L (136-145)
[2017-10-29 07:56] LABS: CREATININE 1.02 mg/dL (0.55-1.02)
[2017-10-29 08:00] VITALS: BP 125/66
[2017-10-29 08:04] LABS: VANCOMYCIN TROUGH 20.6 ug/mL (10-20)
[2017-10-29] MEDS ORDERED: CEPHALEXIN500 M1 PO (11:11)
[2017-10-29 16:00] VITALS: BP 117/60
[2017-10-29] MEDS ORDERED: CEFAZOLIN2 GM/10 ML IV (16:30)
[2017-10-29 16:42] LABS: BODY FLUID WBC 908 /uL
[2017-10-29 17:25] LABS: BF LYMPHOCYTES 11 %; BF MONOCYTES 20 %; BF NEUTROPHILS 69 %
[2017-10-29 20:00] VITALS: BP 129/57
[2017-10-30] VITALS: BP 129/60
[2017-10-30 06:50] VITALS: BP 158/60
[2017-10-30 07:30] LABS: CHLORIDE 98 mmol/L (98-107); CREATININE 0.95 mg/dL (0.55-1.02); POTASSIUM 3.3 mmol/L (3.5-5.1); SODIUM 140 mmol/L (136-145)
[2017-10-30 07:31] LABS: BUN 12 mg/dl (7-24)
[2017-10-30 16:00] VITALS: BP 132/79
[2017-10-30] MEDS ORDERED: PREDNISONE20 M1 PO (16:49)
[2017-10-30 20:00] VITALS: BP 129/58
[2017-10-31] VITALS: BP 125/65
[2017-10-31 06:30] VITALS: BP 131/70
[2017-10-31 07:06] LABS: BUN 14 mg/dl (7-24); CHLORIDE 100 mmol/L (98-107); CREATININE 0.96 mg/dL (0.55-1.02); POTASSIUM 3.8 mmol/L (3.5-5.1); SODIUM 144 mmol/L (136-145)
== END 2017-10-31 14:30 | disposition home or self-care (01) | DRG 558 ==
LOC: ED 09:23 → 5E 13:22 → EDHOLD 13:22 → 5E 13:35
PROVIDERS: Internal Medicine; Internal Medicine Infectious Disease; Orthopaedic Surgery; Physician Assistant
PROC: 5A09457 Assistance with Respiratory Ventilation, 24-96 Consecutive Hours, Continuous Positive Airway Pressure (ICD-10-PCS; principal; 2017-10-27)
PROC: 0R9L3ZX Drainage of Right Elbow Joint, Percutaneous Approach, Diagnostic (ICD-10-PCS; 2017-10-29)
PROC: 5A09357 Assistance with Respiratory Ventilation, Less than 24 Consecutive Hours, Continuous Positive Airway Pressure (ICD-10-PCS; 2017-10-29)
PROC: 5A09357 Assistance with Respiratory Ventilation, Less than 24 Consecutive Hours, Continuous Positive Airway Pressure (ICD-10-PCS; 2017-10-31)
DX: M70.21 Olecranon bursitis, right elbow (principal); J96.10 Chronic respiratory failure, unspecified whether with hypoxia or hypercapnia; E11.22 Type 2 diabetes mellitus with diabetic chronic kidney disease; L03.115 Cellulitis of right lower limb; E11.65 Type 2 diabetes mellitus with hyperglycemia; E66.01 Morbid (severe) obesity due to excess calories; F33.1 Major depressive disorder, recurrent, moderate; Z68.43 Body mass index [BMI] 50.0-59.9, adult; N18.3 Chronic kidney disease, stage 3 (moderate); J44.9 Chronic obstructive pulmonary disease, unspecified; E87.6 Hypokalemia

== ENCOUNTER → 2017-10-25 | Outpatient (CLI) | payer BC | END | disposition home or self-care (01) | LOC: WOUNDCARE 00:38 | DX: E11.621 Type 2 diabetes mellitus with foot ulcer (principal); L97.412 Non-pressure chronic ulcer of right heel and midfoot with fat layer exposed; L97.422 Non-pressure chronic ulcer of left heel and midfoot with fat layer exposed; L97.511 Non-pressure chronic ulcer of other part of right foot limited to breakdown of skin; E11.622 Type 2 diabetes mellitus with other skin ulcer; L97.811 Non-pressure chronic ulcer of other part of right lower leg limited to breakdown of skin; Z89.412 Acquired absence of left great toe ==

== ENCOUNTER 2017-11-09 19:15 | Emergency (ER) | payer BC, MEDICARE ==
[~2017-11-09] VITALS: Wt 136.1 kg
[~2017-11-09 19:15] MED LIST changes: +CEFAZOLIN2 GM/10 ML IV; +CEPHALEXIN500 M1 PO
== END 2017-11-09 19:45 | disposition home or self-care (01) ==
LOC: ED 19:15
DX: Z48.01 Encounter for change or removal of surgical wound dressing (principal); J45.909 Unspecified asthma, uncomplicated; L89.623 Pressure ulcer of left heel, stage 3; L89.613 Pressure ulcer of right heel, stage 3; I10 Essential (primary) hypertension; E66.01 Morbid (severe) obesity due to excess calories; M19.90 Unspecified osteoarthritis, unspecified site; L89.152 Pressure ulcer of sacral region, stage 2; E11.621 Type 2 diabetes mellitus with foot ulcer; E11.65 Type 2 diabetes mellitus with hyperglycemia; Z98.890 Other specified postprocedural states; Z79.4 Long term (current) use of insulin; Z79.899 Other long term (current) drug therapy; Z88.8 Allergy status to other drugs, medicaments and biological substances; Z88.1 Allergy status to other antibiotic agents; Z88.5 Allergy status to narcotic agent

== ENCOUNTER → 2017-11-15 | Outpatient (CLI) | payer BC, MEDICARE | END | disposition home or self-care (01) | LOC: WOUNDCARE 02:39 | DX: E11.621 Type 2 diabetes mellitus with foot ulcer (principal); L97.421 Non-pressure chronic ulcer of left heel and midfoot limited to breakdown of skin; L97.411 Non-pressure chronic ulcer of right heel and midfoot limited to breakdown of skin; L97.521 Non-pressure chronic ulcer of other part of left foot limited to breakdown of skin; L97.511 Non-pressure chronic ulcer of other part of right foot limited to breakdown of skin; E11.622 Type 2 diabetes mellitus with other skin ulcer; L97.811 Non-pressure chronic ulcer of other part of right lower leg limited to breakdown of skin; Z89.412 Acquired absence of left great toe ==

== ENCOUNTER → 2017-11-16 | Outpatient (CLI) | payer BC, MEDICARE ==
[2017-11-16 12:31] LABS: BODY FLUID WBC 4600 /uL
[2017-11-16 12:42] LABS: BF LYMPHOCYTES 7 %; BF MONOCYTES 20 %; BF NEUTROPHILS 73 %
== END | disposition home or self-care (01) ==
LOC: ORTHO 01:33
PROVIDERS: Orthopaedic Surgery
DX: M25.521 Pain in right elbow (principal); M71.521 Other bursitis, not elsewhere classified, right elbow; M25.421 Effusion, right elbow

== ENCOUNTER → 2017-11-22 | Outpatient (CLI) | payer BC, MEDICARE | END | disposition home or self-care (01) | LOC: WOUNDCARE 00:46 | DX: E11.621 Type 2 diabetes mellitus with foot ulcer (principal); L97.422 Non-pressure chronic ulcer of left heel and midfoot with fat layer exposed; L97.412 Non-pressure chronic ulcer of right heel and midfoot with fat layer exposed; L97.521 Non-pressure chronic ulcer of other part of left foot limited to breakdown of skin; L97.511 Non-pressure chronic ulcer of other part of right foot limited to breakdown of skin; Z89.412 Acquired absence of left great toe ==

== ENCOUNTER → 2017-11-29 | Outpatient (CLI) | payer BC, MEDICARE | END | disposition home or self-care (01) | LOC: WOUNDCARE 02:08 | DX: E11.621 Type 2 diabetes mellitus with foot ulcer (principal); L97.412 Non-pressure chronic ulcer of right heel and midfoot with fat layer exposed; L97.422 Non-pressure chronic ulcer of left heel and midfoot with fat layer exposed; L97.511 Non-pressure chronic ulcer of other part of right foot limited to breakdown of skin; L97.521 Non-pressure chronic ulcer of other part of left foot limited to breakdown of skin; L89.892 Pressure ulcer of other site, stage 2; E11.69 Type 2 diabetes mellitus with other specified complication; M86.8X7 Other osteomyelitis, ankle and foot; Z89.422 Acquired absence of other left toe(s) ==

== ENCOUNTER → 2017-12-13 | Outpatient (CLI) | payer BC, MEDICARE | END | disposition home or self-care (01) | LOC: WOUNDCARE 01:38 | DX: E11.621 Type 2 diabetes mellitus with foot ulcer (principal); L89.892 Pressure ulcer of other site, stage 2; L97.412 Non-pressure chronic ulcer of right heel and midfoot with fat layer exposed; L97.422 Non-pressure chronic ulcer of left heel and midfoot with fat layer exposed; L97.521 Non-pressure chronic ulcer of other part of left foot limited to breakdown of skin; L97.511 Non-pressure chronic ulcer of other part of right foot limited to breakdown of skin; S31.114A Laceration without foreign body of abdominal wall, left lower quadrant without penetration into peritoneal cavity, initial encounter; Z89.422 Acquired absence of other left toe(s); X58.XXXA Exposure to other specified factors, initial encounter; Y93.89 Activity, other specified; Y92.89 Other specified places as the place of occurrence of the external cause; Y99.8 Other external cause status ==

== ENCOUNTER → 2017-12-20 | Outpatient (CLI) | payer BC, MEDICARE | END | disposition home or self-care (01) | LOC: WOUNDCARE 00:22 | DX: E11.621 Type 2 diabetes mellitus with foot ulcer (principal); L97.412 Non-pressure chronic ulcer of right heel and midfoot with fat layer exposed; L97.422 Non-pressure chronic ulcer of left heel and midfoot with fat layer exposed; L89.892 Pressure ulcer of other site, stage 2; L97.521 Non-pressure chronic ulcer of other part of left foot limited to breakdown of skin; L97.511 Non-pressure chronic ulcer of other part of right foot limited to breakdown of skin; E11.69 Type 2 diabetes mellitus with other specified complication; M86.8X7 Other osteomyelitis, ankle and foot; S30.92XA Unspecified superficial injury of abdominal wall, initial encounter; X58.XXXA Exposure to other specified factors, initial encounter; Y93.89 Activity, other specified; Y92.89 Other specified places as the place of occurrence of the external cause; Y99.8 Other external cause status ==

== ENCOUNTER → 2018-01-24 | Outpatient (CLI) | payer BC, MEDICARE | END | disposition home or self-care (01) | LOC: WOUNDCARE 02:47 → US 02:47 → WOUNDCARE 13:34 | DX: R60.0 Localized edema (principal); M25.562 Pain in left knee; L97.412 Non-pressure chronic ulcer of right heel and midfoot with fat layer exposed; L97.422 Non-pressure chronic ulcer of left heel and midfoot with fat layer exposed; L89.892 Pressure ulcer of other site, stage 2; L03.115 Cellulitis of right lower limb; S81.811D Laceration without foreign body, right lower leg, subsequent encounter; S30.92XD Unspecified superficial injury of abdominal wall, subsequent encounter; X58.XXXD Exposure to other specified factors, subsequent encounter ==

== ENCOUNTER → 2018-04-03 | Outpatient (CLI) | payer BC, MEDICARE ==
[~2018-04-03] MED LIST changes: +AUGMENTIN 875-875 MG PO; +BUTALB-ACETAMI1 EACH PO; +CEFDINIR300 MG PO; +CHOLESTYRAMINE L4 GM PO; +CHOLESTYRAMINE P4 GM PO; -DELTASONE20 M1 PO; +LUMIGAN50 DRP OPH; +XARE15TA PO; +ZESTRIL40 MG PO
== END | disposition home or self-care (01) ==
LOC: WOUNDCARE 10:26
DX: E11.621 Type 2 diabetes mellitus with foot ulcer (principal); L97.511 Non-pressure chronic ulcer of other part of right foot limited to breakdown of skin; L97.421 Non-pressure chronic ulcer of left heel and midfoot limited to breakdown of skin; L97.411 Non-pressure chronic ulcer of right heel and midfoot limited to breakdown of skin; L84 Corns and callosities; Z89.412 Acquired absence of left great toe; Z79.4 Long term (current) use of insulin

== ENCOUNTER → 2018-05-09 | Outpatient (CLI) | payer BC ==
[~2018-05-09] MED LIST changes: +PRINIVIL10 MG PO
== END | disposition home or self-care (01) ==
LOC: WOUNDCARE 05:15
DX: E10.621 Type 1 diabetes mellitus with foot ulcer (principal); L97.411 Non-pressure chronic ulcer of right heel and midfoot limited to breakdown of skin; L97.421 Non-pressure chronic ulcer of left heel and midfoot limited to breakdown of skin; Z79.52 Long term (current) use of systemic steroids

== ENCOUNTER 2018-05-15 20:38 | Inpatient (IN) | payer BC, MEDICARE ==
[~2018-05-15] VITALS: Ht 157.4 cm; Wt 123.1 kg
--- NOTE | ~2018-05-15 | PR ---
[place], [place] PROGRESS NOTE NAME: TOD HERNANDEZ UNIT #: [id number] ROOM: 426 DOCTOR: FRANCO CAPUTO MD BIRTHDATE: [birth year] DOS: 05/18/2018 SUBJECTIVE: The patient continues to complain of the left wrist and forearm pain. She does not have any chest pains or palpitations. Blood sugars are running on the high side. OBJECTIVE: VITAL SIGNS: Graphic trend shows a pressure 125/68, pulse of 86, respirations 18, temperature 97.4. LUNGS: Diminished breath sounds. No wheezes, rales or rhonchi heard. HEART: Regular. ABDOMEN: Obese. EXTREMITIES: Decreased edema, decreased drainage from of the right second toe. LABORATORY DATA: WBC count is 11.4, hemoglobin 9.2, hematocrit 31.9. BMP: Glucose 164, BUN 32, creatinine 1.20, sodium 140, potassium 4.2. Last blood sugar yesterday was 343. No blood sugar is marked for this morning. ASSESSMENT AND PLAN: 1. Osteomyelitis of the big toe second phalanx, on intravenous antibiotics. 2. Acute kidney injury noted. We will avoid nephrotoxic meds, discontinue Indocin which was started for acute gout also lisinopril and slow IV hydration and the vancomycin dose hopefully can be readjusted. 3. The metacarpal fracture of 5th. Because of continued pain, a CT of the forearm and hand is being ordered to rule out other occult fractures. 4. Chronic obstructive pulmonary disease, stable without any exacerbations. 5. Type 2 diabetes mellitus, fairly controlled for right now, readjust insulin dosing if needed. 6. Adult failure to thrive. Discussed with the patient about possibility of intravenous antibiotics and she did raise suggestion about going to rehabilitation. Social service will work on that on Sunday. FRANCO CAPUTO MD CM:PNTRANS [id number] FRANCO CAPUTO MD 06/11/18 1425 interface
--- NOTE | ~2018-05-15 | PR ---
[place], [place] PROGRESS NOTE NAME: TOD HERNANDEZ UNIT #: [id number] ROOM: 426 DOCTOR: RONI BURTON MD,JESSICA BIRTHDATE: [birth year] DOS: 05/22/2018 PULMONARY PROGRESS NOTE ADDENDUM The patient was seen and examined independently. History was confirmed. Physical examination was performed. The labs were assessed. The assessment and management was personally completed. SUBJECTIVE: The patient has been noted comfortable, continuing to do well from a respiratory standpoint without any symptoms of shortness of breath. She was noted fully awake and alert, using her own CPAP from home. She has not been noted with any symptoms of chest pain. There was no cough. OBJECTIVE: VITAL SIGNS: Where were done with normal temperature, respiratory rate 18, heart rate 84, blood pressure 124/50. Pulse oxygen saturation was recorded as normal, 98%. HEENT: Chronic obesity. CARDIOVASCULAR: S1, S2 audible. LUNGS: Noted with decreased breath sounds bilaterally. There were no wheezes or crackles. ABDOMEN: Soft, nontender. EXTREMITIES: No new changes. IMPRESSION: 1. The patient is with improving nbybb-qs-ynryjom hypercapnic and hypoxic respiratory failure at the present time. 2. Obstructive sleep apnea disorder. 3. Bronchial asthma. PLAN OF THERAPY: No changes from the pulmonary standpoint. Continue current therapy, plan of management and care as previously. JESSICA TAMAYO MD CM:PNTRANS [id number] JESSICA BURTON MD 05/22/18 1502 interface
--- NOTE | ~2018-05-15 | PR ---
[place], [place] PROGRESS NOTE NAME: TOD HERNANDEZ UNIT #: [id number] ROOM: 406 DOCTOR: FRANCO CAPUTO MD BIRTHDATE: [birth year] DOS: 05/20/2018 SUBJECTIVE: The patient this morning is on the BiPAP, does try to answer questions appropriately. OBJECTIVE: VITAL SIGNS: Graphic trend shows pressure of 141/49, pulse of 90, respirations 14, and temperature 97.8. LUNGS: Diminished breath sounds. No wheezes, rales or rhonchi heard. HEART: Regular. ABDOMEN: Obese. EXTREMITIES: Without edema. Left wrist, there is no swelling, no redness. The range of motion is normal without any painful limitation. No evidence of any compartment syndrome. PH of 7.3, pCO2 of 47, pO2 108, and bicarbonate 23.8. Oxygen saturation 98.1. Yesterday evening, the blood gases improved to 7, pretty much the same as yesterday. This morning's ABG 7.3, pCO2 of 46, pO2 90.7. ASSESSMENT AND PLAN: 1. The patient, who presented with osteomyelitis of the right second toe on IV antibiotics. Discussed with case management. We will try to arrange for IV antibiotics, outpatient antibiotics at the senior living. 2. Hypoxia with hypercapnic respiratory failure. This was mostly from pain medications. This is an ongoing problem for this patient. The patient's pain medications have been discontinued. Bypass was ordered continuously. She was just using it at home at night. 3. Left hand redness and cellulitis, possible acute gouty arthropathy. This seems to have resolved. There is no evidence of septic joint or compartment syndrome. 4. Type 2 diabetes mellitus, insulin-dependent. Blood sugars none recorded, even though has been requested multiple times. We will discuss with nursing staff. 5. Benign hypertension, controlled. 6. Acute kidney injury. Kidney functions did improve with IV fluids. We will discontinue fluids and give one dose of Lasix because of leg edema. [place], [place] PROGRESS NOTE NAME: TOD HERNANDEZ UNIT #: [id number] ROOM: 406 DOCTOR: FRANCO CAPUTO MD BIRTHDATE: [birth year] FRANCO CAPUTO MD CM:PNKESHA [phone] FRANCO CAPUTO MD 05/20/18 1744 interface
--- NOTE | ~2018-05-15 | PR ---
[place], [place] PROGRESS NOTE NAME: TOD HERNANDEZ UNIT #: [id number] ROOM: 426 DOCTOR: FRANCO CAPUTO MD BIRTHDATE: [birth year] DOS: 05/17/2018 SUBJECTIVE: The patient complains of minimal discomfort in the left hand. She denies having any chest pains, palpitations or shortness of breath. Does not have any fever or chills, does not have any abdominal pain, nausea, any emesis. OBJECTIVE: GENERAL: On examination she is awake and alert and oriented. VITAL SIGNS: Graphic trend shows a pressure of 125/54, pulse of 80, respirations 19, temperature 99.6. LUNGS: Diminished breath sounds, clear. HEART: Regular. ABDOMEN: Soft. EXTREMITIES: Without any edema on the legs, right second toe is still pretty swollen, some minimal amount of drainage, left hand is red and swollen around the wrist. ASSESSMENT AND PLAN: 1. Fifth metacarpal fracture. Conservative management. 2. Osteomyelitis of the second toe on the right with destruction of the bone, may require amputation. 3. Chronic long-term use of steroids with osteopenia. The patient would need a bone density, but we cannot do it an inpatient, we will start the patient on a Fosamax anyway. 4. Acute gouty arthritis, left hand. Indocin was ordered for short term, uric acid level was normal. 5. Type 2 diabetes mellitus. Blood sugars controlled. FRANCO CAPUTO MD CM:PNTRANS [id number] FRANCO CAPUTO MD 06/11/18 1425 interface
--- NOTE | ~2018-05-15 | WRIGHTHP ---
[place], [place] PATIENT HISTORY AND PHYSICAL EXAM [id number] UNIT #: [id number] ROOM: 426 DOCTOR: FRANCO CAPUTO MD BIRTHDATE: [birth year] DOS: HISTORY OF PRESENT ILLNESS: The patient is very well known to us. The patient has been having increased pain in the left hand for the last couple of days, it became red and swollen, so she decided to come into the Emergency Room. She denies having any falls, any injuries, any blood draws. She also has noticed increased drainage from the right foot. She denies having any chest pains, palpitations, not have any fever or chills, does not have any abdominal pain, nausea, and emesis. PAST MEDICAL HISTORY: Significant for: 1. COPD panacinar emphysema with chronic respiratory failure. 2. Benign hypertension. 3. History of recent deep venous thrombosis of the right lower leg on anticoagulants. 4. Type 2 diabetes mellitus, insulin-dependent, poorly controlled. 5. Chronic poorly healing wounds of the feet. 6. Chronic pain from peripheral neuropathy. 7. Chronic kidney disease stage 3. 8. Major depression, recurrent, mild. MEDICATIONS: She is on currently are breathing treatments oxygen supplementation, Lumigan eyedrops, Xanax 0.5 t.i.d., migraine, Fioricet, calcium 500 b.i.d., cholestyramine 4 grams daily, diltiazem 240 daily, Pepcid 20 daily, lisinopril 40 daily, melatonin 10 at bedtime, ondansetron 4 mg q. 4, Paxil 30 daily, prednisone 30 daily, Lyrica 100 b.i.d., Xarelto 15 b.i.d., Daliresp 500 mcg daily, Januvia 100 daily. SOCIAL HISTORY: Nonsmoker, does not use any alcohol. PHYSICAL EXAMINATION: GENERAL: She is awake and alert and oriented, in no distress. VITAL SIGNS: Graphic trend shows a pressure of 132/70, pulse of 76, respirations 20, temperature 98.9. LUNGS: Diminished breath sounds. No wheezes, rales or rhonchi heard. HEART: Regular. ABDOMEN: Obese. EXTREMITIES: Without trace edema noted in the right leg where she had recently fallen hence small bruises noticed there, left leg is chronically swollen, especially with the recent DVT with mild redness of the skin, poorly healing wound of the right second toe. This toe is quite swollen and red, on the left side there is poorly healing wound on the tip of the plantar aspect of the left second toe as well as the left heel and the right heel. The heel wound seems to have dried up. ASSESSMENT AND PLAN: 1. The patient claims that she had a fall, but did not injure her left forearm, but she did hurt her right leg and has a small bruise on it, it is possible that she did injure her right hand also because there is a fracture noted on x-ray. The patient also appears to have right wrist gouty arthropathy. Uric acid level [place], [place] PATIENT HISTORY AND PHYSICAL EXAM NAME: TOD HERNANDEZ UNIT #: [id number] ROOM: 426 DOCTOR: FRANCO CAPUTO MD BIRTHDATE: [birth year] is ordered. Indocin started. 2. History of deep venous thrombosis, on anticoagulants, we will have to be careful with the usage of nonsteroidals. 3. Cellulitis, possible osteomyelitis of the right foot, second toe, MRI, bone scan has been ordered. White cell count is elevated 21,000. Lactic acidosis was noticed. IV antibiotics were given. 4. Type 2 diabetes mellitus, insulin-dependent. 5. Benign hypertension, controlled disease. 6. Chronic obstructive pulmonary disease, continue breathing treatments, oxygen supplementation. FRANCO CAPUTO MD CM:HISPHYS:PATIENT HISTORY AND PHYSICAL EXAMINATION 4 FRANCO CAPUTO MD 05/29/18 0650 interface
--- NOTE | ~2018-05-15 | PR ---
[place], [place] PROGRESS NOTE NAME: TOD HERNANDEZ UNIT #: [id number] ROOM: 426 DOCTOR: SMOOTH QUINTANA DO BIRTHDATE: [birth year] DOS: 05/22/2018 SUBJECTIVE: The patient was seen and examined at the bedside. She denies fevers, chills, chest pain, abdominal pain, nausea, coughing, wheezing or shortness of breath at rest. She does admit to dyspnea on exertion, which is a chronic issue for her. She is using her BiPAP and denies any other new respiratory complaints. The patient did not undergo biopsy of her right second digit of the foot yesterday because she decided on empiric treatment with IV antibiotics. She hopes to be discharged relatively soon. OBJECTIVE: VITAL SIGNS: Temperature 97.2, heart rate is 85, respiratory rate is 18, blood pressure is 124/50 and pulse oximetry is 98%. HEENT: The head is normocephalic and atraumatic. The eyes are noted without lesions or ulcerations. NECK: Obese. The trachea is midline. CARDIOVASCULAR: There is a regular rate and rhythm. Positive S1 and S2 sounds were auscultated and no murmurs, rubs or gallops were appreciated. PULMONARY: Breath sounds were diminished bilaterally. No wheezing or crackles were auscultated. ABDOMEN: Soft, nontender and obese. Positive bowel sounds were auscultated. EXTREMITIES: The patient remains with bandages to both of her heels and has a removable wrist brace to her left upper extremity. LABORATORY DATA: CBC from 05/21/2018 showed white count at 8.8, hemoglobin at 8.4, hematocrit at 29.2, platelet count at 287. Her chemistries from 05/21/2018 showed sodium at 146, potassium at 3.7, chloride at 110, bicarbonate at 31, BUN at 26, creatinine at 0.86, glucose at 83. Hemoglobin A1c was 9.5. Calcium was 9.1, total bilirubin was 0.2, AST was under 3, ALT was 13, alkaline phosphatase was 71 and albumin was 2.4. IMPRESSION: 1. Lgyds-ok-rkmxurp hypercapnic respiratory failure. This is greatly improved and was likely secondary to use of narcotic pain medications and the patient's bronchial asthma. 2. Obstructive sleep apnea. 3. Suspected osteomyelitis of the second digit of the right foot. 4. Suspected fracture of the fifth metacarpal bone of the left hand. 5. Insulin-dependent type 2 diabetes mellitus. 6. Hypertension. 7. Gastroesophageal reflux. 8. Generalized anxiety. 9. Morbid obesity. 10. Severe protein-calorie malnutrition. PLAN OF MANAGEMENT: The recommendation for the patient is to continue her use of her home BiPAP at its current settings. [place], [place] PROGRESS NOTE NAME: TOD HERNANDEZ UNIT #: [id number] ROOM: 426 DOCTOR: SMOOHT QUINTANA DO BIRTHDATE: [birth year] Smooth Quintana DO JESSICA TAMAYO MD CM:ARTI [id number] SMOOTH QUINTANA DO 05/22/18 1048 interface
--- NOTE | ~2018-05-15 | PR ---
[place], [place] PROGRESS NOTE NAME: TOD HERNANDEZ UNIT #: [id number] ROOM: 426 DOCTOR: PATITO FREDERICKFRANCO BIRTHDATE: [birth year] DOS: 05/21/2018 SUBJECTIVE: The patient is not having any new complaints other than discomfort in the left hand. I appreciate Dr. Robles consults. The patient has been seen by Infectious Disease group and was scheduled for a bone biopsy this morning. She does not have any chest pains or palpitations. OBJECTIVE: VITAL SIGNS: Graphic trend shows a blood pressure of 155/70, pulse of 93, respirations 17, and temperature 97.4. LUNGS: Diminished breath sounds. No wheezes, rales or rhonchi heard. HEART: Regular. ABDOMEN: Obese. EXTREMITIES: Without much edema today. LABORATORY DATA: Echocardiogram shows normal LV function, abnormal relaxation pattern with grade 1 diastolic dysfunction, mild concentric LVH. C-reactive protein is 1.52. ESR is 61. Her white cell count is 8.8, hemoglobin 8.4, hematocrit 29.2, and platelets 287. Comprehensive glucose 83, BUN 26, creatinine 0.86, sodium 146, potassium 3.7, chloride 110, and bicarbonate 31. Liver enzymes are normal. ASSESSMENT AND PLAN: 1. Hypercapnic respiratory failure, respiratory acidosis with BiPAP. Her symptoms have improved, we have discontinued the Ambien, the Percocet and the Dilaudid. 2. Chronic obstructive pulmonary disease, chronic prednisone usage, stable. 3. Benign hypertension, controlled with echocardiogram showing LVH. 4. Osteopenia, Fosamax has been started. 5. Possible metacarpal fracture, 5th. Appreciate Dr. Robles input. A brace has been ordered, the patient has been given. The redness and swelling is completely resolved. But, the patient still has complaints of pains, a Voltaren gel will be ordered for local application since I am not willing to give any narcotics or other pain medications. 6. There is a possible osteomyelitis of the right second toe. I appreciate ID input. Bone biopsy pending and then decide on discharge planning. The second digit appears distracted and this may need to be amputated. The patient was reluctant to have it done. [place], [place] PROGRESS NOTE NAME: TOD HERNANDEZ UNIT #: [id number] ROOM: 426 DOCTOR: FRANCO CAPUTO MD BIRTHDATE: [birth year] FRANCO CAPUTO MD CM:PNTRANS [id number] FRANCO CAPUTO MD 06/11/18 1426 interface
--- NOTE | ~2018-05-15 | PR ---
[place], [place] PROGRESS NOTE NAME: TOD HERNANDEZ UNIT #: [id number] ROOM: 426 DOCTOR: RONI BURTON MD,JESSICA BIRTHDATE: [birth year] DOS: 05/21/2018 PULMONARY PROGRESS ADDENDUM SUBJECTIVE: The patient was seen and examined in [id number] encounter. History was confirmed. The labs were reviewed. Physical examination performed. The assessment and management and change in the treatment were personally made for today's visit. Note done by the medical technicians was approved. The patient has been noted fully awake and alert using the BiPAP, has been ordered. She has been seen by the Podiatry services and was planned for getting I and D done for second digit of the right foot. The pain in the left wrist was noted to be decreased, but not completely resolved. She denies symptoms of acute shortness of breath, cough, or wheezing. OBJECTIVE: VITAL SIGNS: Reviewed. They were noted all normal. CHEST: Remains clear. ABDOMEN: Soft and obese. EXTREMITIES: No edema. IMPRESSION: 1. The patient has stable respiratory status with improving acute on chronic hypercapnic and hypoxic respiratory failure, chronic hypercapnia and hypoxia. 2. The patient with a history of uncomplicated severe persistent bronchial asthma. 3. Obstructive sleep apnea disorder. PLAN OF MANAGEMENT: From Pulmonary standpoint, no change in treatment. Continue current management plan with the use of the BiPAP intermittently during the day, continue at nighttime. Proceed with the surgical intervention and other infection management, already done by the other consults. JESSICA TAMAYO MD CM:PNTRANS [id number] EJSSICA BURTON MD 05/21/18 1016 interface
--- NOTE | ~2018-05-15 | PR ---
[place], [place] PROGRESS NOTE NAME: TOD HERNANDEZ UNIT #: [id number] ROOM: 426 DOCTOR: FRANCO CAPUTO MD BIRTHDATE: [birth year] DOS: 05/19/2018 SUBJECTIVE: The patient continues to complain of left hand pain and arm pain. OBJECTIVE: VITAL SIGNS: This morning, blood pressure is 126/67, pulse of 108, respirations 22, and temperature 97.6. LUNGS: Diminished breath sounds. HEART: Regular. ABDOMEN: Obese, soft. EXTREMITIES: Left wrist and forearm is less swollen, less red, but still pretty tender. LABORATORY DATA: Labs this morning shows a WBC count of 13.2, hemoglobin 9.2, hematocrit 32.3, and platelets 364. BMP: Glucose 191, BUN 39, creatinine 1.28, sodium 140, and potassium 5.1. CT of the left hand and forearm did not show any fractures, which is surprising and cellulitis was seen. ASSESSMENT AND PLAN: 1. Cellulitis of the left hand, on antibiotics. No fracture of the fifth metacarpal was not seen on the CT scan. 2. Acute kidney injury. Kidney functions have stabilized, but I will continue the fluids from today. 3. Osteomyelitis of the second toe, right foot, on IV antibiotics. The plan may be to discharge her to [place] for continued IV antibiotics. 4. Type 2 diabetes mellitus, insulin-dependent, not very well controlled, possibly from the infection, may need to increase insulin drip. 5. Benign hypertension, controlled. FRANCO CAPUTO MD CM:PNTRANS [id number] LAKESHIA CAPUTO MD 06/11/18 1430 ROSMERY [email or web address]
--- NOTE | ~2018-05-15 | CON ---
[place], [place] REPORT OF CONSULTATION NAME: TOD HERNANDEZ UNIT #: [id number] ROOM: 426 DOCTOR: JESSICA GOLDBERG MD BIRTHDATE: [birth year] DOS: 05/19/2018 PULMONARY CONSULTATION, EVALUATION, AND MANAGEMENT CONSULTATION REQUESTED BY: Indira Gonzalez M.D. REASON FOR CONSULTATION: For change in mental status with decreased responsiveness and hypercarbia. HISTORY OF PRESENT ILLNESS: This is a 48-year-old white female patient known to me with history of uncomplicated severe persistent bronchial asthma, chronic hypoxic respiratory failure, and obstructive sleep apnea disorder. The patient has been admitted to the hospital under the care of Dr. Indira Gonzalez on 05/15/2018. The patient was brought to the hospital as the patient was noted with increased pain of the left hand for the past couple of days. The patient was also noted redness and tenderness in the joint. The patient came into the Emergency Room. She has been admitted to the hospital for further care. She has been receiving pain medication in the form of the Percocet and Dilaudid for the pain control. The patient noted unresponsive. The patient has decreased response this morning. She has arterial blood gases ordered, which was completed this afternoon. I was asked for consultation. The patient's arterial blood gases were reviewed by the nursing staff and she was started on the BiPAP. Currently, the patient has been using BiPAP this morning, noted improvement in the mental status. She was not ordered any medications at the present time including the Narcan. The patient was seen this afternoon for further assessment, currently using the BiPAP. She denies symptoms of shortness of breath, coughing, chest pain, or sputum expectoration. She denies symptoms of wheezing. PAST MEDICAL HISTORY: Known with: 1. History of uncomplicated severe persistent bronchial asthma. 2. Chronic hypoxic respiratory failure. 3. Obstructive sleep apnea disorder, currently treated with positive pressure treatment. 4. Gastroesophageal reflux. 5. Essential hypertension. 6. History of chronic intermittent sinus tachycardia. 7. Type 2 diabetes mellitus. 8. Chronic obesity. 9. Chronic steroid dependence. 10. Essential hypertension. 11. Generalized anxiety disorder. 12. Ovarian cyst. 13. Fracture of the arm. PAST SURGICAL HISTORY: 1. ORIF. The patient has metatarsal surgery of the right foot. 2. T and A. 3. Therapeutic bronchoscopy. 4. Bilateral cataract extraction, lens implantation. [place], [place] REPORT OF CONSULTATION NAME: TOD HERNANDEZ UNIT #: [id number] ROOM: 426 DOCTOR: RONI BURTON MD,JESSICA BIRTHDATE: [birth year] 5. D and C. 6. Right wrist surgery. 7. Incision and drainage of the right foot and metatarsal bones. MEDICATIONS: The current medications administered noted use of some eye drops, Fosamax once a week, Xarelto 15 mg b.i.d., calcium with vitamin D 1 p.o. b.i.d., Tradjenta, Daliresp, Paxil, prednisone 30 mg daily, famotidine, diltiazem, DuoNeb q.4 hours, IV vancomycin, Lyrica, IV Zosyn, and other medications. DRUG ALLERGIES: THE PATIENT HAS NOTED ALLERGIES TO: 1. COMPAZINE. 2. MORPHINE. 3. BACTRIM. 4. REGLAN. SOCIAL HISTORY: The patient is and lives at home. She is noted as lifetime nonsmoker. There is no history of alcohol use or illicit drug use. FAMILY HISTORY: Noted noncontributory. REVIEW OF SYSTEMS: Limited because use of the BiPAP, continue to use at this time. CONSTITUTIONAL SYMPTOMS: The patient is complaining of fatigue and tiredness. Denies symptoms of fever or chills. EYES: Denies any burning, redness, or tenderness. EARS, NOSE, AND THROAT SYMPTOMS: No sore throat, hoarseness, otalgia, postnasal drainage, or epistaxis. CARDIOVASCULAR SYSTEM: Denies angina pain, edema, or pain of the lower extremity. GASTROINTESTINAL SYMPTOMS: No dysphagia, nausea, vomiting, diarrhea, abdominal pain, hematemesis, or melena. GENITOURINARY SYMPTOMS: No dysuria, suprapubic pain, hematuria, or flank pain. MUSCULOSKELETAL SYMPTOMS: The patient noted with pain in the left hand and the forearm, which has been currently wrapped with a bandage. The pain appeared to be controlled at this time as the patient was asked the question. CENTRAL NERVOUS SYSTEM: Denies any dizziness, headache, diplopia, or syncopal episodes. Remaining systems were reviewed and limited, but they were noted all negative. PHYSICAL EXAMINATION: GENERAL: This is a 48-year-old white female patient currently noted to be more awake than previously stated. The patient currently uses the BiPAP, height of 5 feet 2 inches, weight of 271 pounds, and BMI of 49.6. VITAL SIGNS: Shows temperature is normal, the respiratory rate recorded as 16-18, heart rate of 98-84, blood pressure of 126/67-142/72, and pulse oxygen saturation on 3.5 liter nasal cannula is 97%. With the BiPAP; currently, the saturation is noted as 98%. HEENT: Head was atraumatic, chronic obesity. NECK: Supple. CARDIOVASCULAR: S1, S2 audible. [place], [place] REPORT OF CONSULTATION NAME: TOD HERNANDEZ UNIT #: [id number] ROOM: 426 DOCTOR: RONI BURTON MD,[facility] BIRTHDATE: [birth year] LUNGS: Shows mild decreased breath sounds without wheezing or crackles. ABDOMEN: Soft, nontender. Bowel sounds present. EXTREMITIES: The patient was noted with chronic wound of the left toe as well as currently wrapped bandage of the left wrist and the forearm. CENTRAL NERVOUS SYSTEM: The patient appeared to be grossly intact. The patient is able to move the extremities. Remaining exam is limited. VISIBLE SKIN: Otherwise noted without any lesions. LABORATORY DATA: CBC of the patient that was done on 05/18/2018, WBC count is 11.4, hemoglobin is 9.2, and platelet count was normal. BMP yesterday, BUN is 32, creatinine is 1.20, and glucose is 164. Remaining electrolytes were normal. CBC of this morning, WBC count is 13.2, hemoglobin is 9, and platelet count was normal. The BMP this morning, BUN is 39, creatinine is 1.28, and glucose is 191. Blood culture from the 05/15/2018 was noted without any bacterial growth. Arterial blood gas that was done today on 3 liter nasal cannula prior to initiation of the BiPAP, pH of 7.31, pCO2 of 47.9, and pO2 of 108. IMAGING DATA: CT scan of the forearm and the left wrist was described as finding consistent with cellulitis without any gas in the tissue or collection of the fluid or abscess. IMPRESSION: 1. The patient has been noted with hypercapnia, which was noted acute with history of chronic hypoxic respiratory failure related to use of narcotic pain medication to control the current pain is very likely. 2. History of known obstructive sleep apnea disorder, which has been noted stable. 3. History of uncomplicated severe persistent bronchial asthma without any acute exacerbation evidence. 4. Uncontrolled hyperglycemia. 5. Chronic steroid dependency. 6. Current cellulitis of left forearm, which has been addressed by the surgery staff and Infectious Disease consultation was requested, which was pending. The patient was noted broad-spectrum intravenous antibiotic would be the coverage of the gram-positive, gram-negative, and organism including methicillin-resistant Staphylococcus aureus. PLAN AND RECOMMENDATION: Continue the patient's current BiPAP settings 18/04, which was started on this admission to be continued for the support of respiratory failure. Continue wound management. Follow the recommendation of the surgery staff and Infectious Disease for infection management. Order another arterial blood gas to reassess. The BiPAP could be used except meals. Minimize or reduce the use of the narcotic medication. If the patient noted further unresponsiveness, certainly medication such as Narcan could be administered if absolutely become necessary. All other plan of therapy and care plan. Usual care. Thanks for allowing me to participate in the care of this patient. [place], [place] REPORT OF CONSULTATION NAME: TOD HERNANDEZ UNIT #: [id number] ROOM: 426 DOCTOR: JESSICA GOLDBERG MD BIRTHDATE: [birth year] JESSICA TAMAYO MD CM:CONSTR:REPORT OF CONSULTATION [id number] 06/13/18 0715 interface
--- NOTE | ~2018-05-15 | PR ---
[place], [place] PROGRESS NOTE NAME: TOD HERNANDEZ UNIT #: [id number] ROOM: 426 DOCTOR: FRANCO CAPUTO MD BIRTHDATE: [birth year] DOS: 05/22/2018 SUBJECTIVE: The patient is doing fairly well this morning. She refuses a bone biopsy. OBJECTIVE: VITAL SIGNS: Graphic trend shows a pressure of 147/90, pulse of 80, respirations 18, temperature 98. LUNGS: Clear. HEART: Regular. ABDOMEN: Obese. EXTREMITIES: Decreased edema. Left hand has some minimal redness noticed, but considerably improved when compared to her admission. LABORATORY DATA: ESR is only 61. CRP is 1.52. Blood cultures are negative. Hemoglobin A1c 9.5. ASSESSMENT AND PLAN: 1. Osteomyelitis of the second toe, right foot. Infectious Diseases, recommended IV vancomycin for 6 weeks. 2. Cellulitis of the left hand with possible metacarpal fracture. Conservative regimen. Redness has subsided. 3. Benign hypertension with echocardiogram showing LVH with normal LV function. 4. Type 2 diabetes mellitus, poorly controlled. Blood sugar this morning is 75. She has periodic elevated blood sugars because of either chronic ongoing infection or high-dose of steroids. This makes the hemoglobin A1c run rather high. 5. Chronic obstructive pulmonary disease with chronic respiratory failure and hypercapnia, off all pain medications and sleepers. She is going to be discharged today with IV vancomycin as an outpatient. FRANCO CAPUTO MD CM:PNTRANS 13 FRANCO CAPUTO MD 05/22/18 221 interface
--- NOTE | ~2018-05-15 | PR ---
[place], [place] PROGRESS NOTE NAME: TOD HERNANDEZ UNIT #: [id number] ROOM: 426 DOCTOR: MAGGIE ROBLES MD BIRTHDATE: [birth year] DOS: 05/21/2018 SUBJECTIVE: She did well overnight. No acute changes. OBJECTIVE: VITAL SIGNS: She remains afebrile. Vital signs are stable. EXTREMITIES: I examined the left wrist and hand. She is exquisitely point tender over the base of the fifth metacarpal. She has about 30 degrees of wrist dorsiflexion and 30 degrees of wrist volar flexion. Within the 60-degree arc, there is no pain with active nor passive range of motion at the wrist. All of the pain is centered over the fifth metacarpal. ASSESSMENT: A 48-year-old female with a left fifth metacarpal fracture. PLAN: I do not see much cellulitis today in the forearm and hand. This is not a compartment syndrome. All compartments are soft. This is not a septic joint. She has a good arc of passive and active range of motion with the wrist joint, making septic joint very unlikely. This is very much most likely simply a fifth metacarpal fracture based on the exquisite point tenderness. She has at the base of the fifth metacarpal. She was fitted with a wrist brace. Although, this does not give perfect coverage to the fifth metacarpal fracture, it is better with nothing and she seems to be tolerating it very well. Therefore, we will leave it. She should follow up in the orthopedic surgery clinic in 10 days for serial x-rays and repeat clinical examination. Should there be any questions or concerns, please do not hesitate to contact me. I leave [place] on 05/22/2018 in the evening. I am available by phone for questions or concerns thereafter at [phone]. Dr. Dominguez returns on 05/27/2018. [place], [place] PROGRESS NOTE NAME: TOD HERNANDEZ UNIT #: [id number] ROOM: 426 DOCTOR: MAGGIE ROBLES MD BIRTHDATE: [birth year] Maggie Robles MD CM:PNTRANS 08 20 MAGGIE ROBLES MD 05/21/18 2019 interface
--- NOTE | ~2018-05-15 | PR ---
[place], [place] PROGRESS NOTE NAME: TOD HERNANDEZ UNIT #: [id number] ROOM: 406 DOCTOR: RONI BURTON MD,JESSICA BIRTHDATE: [birth year] DOS: 05/20/2018 SUBJECTIVE: The patient noted quite comfortable at this time. This morning, using the BiPAP as ordered. She has been doing well and noted more awake and alert. The pain in the extremities also noted improving. She has been continued on bronchodilators and oxygen supplementation. Appetite was noted good. OBJECTIVE: VITAL SIGNS: Show normal temperature, respiratory rate 18, heart rate 83 and blood pressure 138/82. Pulse oxygen saturation was recorded as 99% saturation on the BiPAP. HEENT: Chronic obesity. NECK: Supple and obese. CARDIOVASCULAR: S1, S2 is audible. LUNGS: The patient without any wheeze or crackles. ABDOMEN: Soft and nontender. EXTREMITIES: Without any acute new changes. LABORATORY DATA: Arterial blood gas today on the BiPAP setting of 20/08, which was adjusted yesterday, showed pH of 7.35, pCO2 of 46 and pO2 90.7. IMPRESSION: Resolution of the acute on chronic hypercapnic respiratory failure related to rather narcotic pain medications and underlying bronchial asthma. The patient with chronic obesity with type 2 diabetes mellitus, cellulitis of the left forearm and the hand, which is improving. PLAN OF MANAGEMENT: Continuation of the current therapy for the patient at this time without any changes. Continuation of the plan of management and care. Other additional treatment changes will be made based on progression of the illness. The BiPAP will be used for the patient intermittent during the day and continuous at nighttime with the current settings. JESSICA TAMAYO MD CM:PNTRANS [id number] JESSICA BURTON MD 05/20/18 1003 interface
--- NOTE | ~2018-05-15 | PR ---
[place], [place] PROGRESS NOTE NAME: TOD [facility]DEZ [id number] UNIT #: [id number] ROOM: 426 DOCTOR: SMOOTH QUINTANA DO BIRTHDATE: [birth year] DOS: 05/21/2018 SUBJECTIVE: The patient was seen and examined at the bedside. She reports dyspnea on exertion and left upper extremity pain. Denies fevers, chills, chest pain, abdominal pain or nausea. The patient states that she is n.p.o. in anticipation of a biopsy today at noon. OBJECTIVE: VITAL SIGNS: Temperature is 97.4, pulse rate is 93, respiratory rate is 17, blood pressure is 155/70. Pulse oximetry is 98% on 3 liters nasal cannula. HEENT: Head is normocephalic, atraumatic. Eyes are without ulcerations. NECK: Obese. CARDIAC: Regular rate and rhythm. Positive S1 and S2 sounds were heard. No murmurs, rubs or gallops were appreciated. LUNGS: Diminished breath sounds were heard. No wheezes or crackles. ABDOMEN: Soft, nontender, obese with positive bowel sounds auscultated. EXTREMITIES: Both lower extremities were noted with bandages to the heels and the patient was with a removable wrist brace to her left upper extremity. LABORATORY DATA: Today's laboratory studies are significant for in terms of CBC: White count is at 8.8, hemoglobin was 8.4, platelets are 287. In terms of chemistries: Sodium is 146, potassium is 3.7, chloride is at 110, bicarbonate is at 31. BUN is 26, creatinine is at 0.86, glucose is 83. Calcium is at 9.1. Total bilirubin is 0.2. AST is below 3. ALT is at 13, alkaline phosphatase is 71 and albumin is at 2.4. IMPRESSION: 1. [id number] hypercapnic respiratory failure. This is resolving and likely was secondary to use of narcotic pain medications and bronchial asthma. 2. Bronchial asthma. 3. Obstructive sleep apnea. 4. Osteomyelitis of the second digit of the right foot. 5. Cellulitis to the left upper extremity, which is improving. 6. Type 2 diabetes mellitus, insulin-dependent. 7. Hypertension. 8. Gastroesophageal reflux. 9. Generalized anxiety. 10. Morbid obesity. PLAN OF MANAGEMENT: In terms of Pulmonary recommendations, continue current treatments with BiPAP, use of the BiPAP intermittently during the daytime and continuously at nighttime. Bone biopsy and cultures to be coordinated by the Infectious Disease and Podiatry services will continue to follow along with least services and orthopedic surgery. Smooth Quintana DO [place], [place] PROGRESS NOTE NAME: TOD HERNANDEZ UNIT #: [id number] ROOM: 426 DOCTOR: SMOOTH QUINTANA DO BIRTHDATE: [birth year] JESSICA TAMAYO MD CM:PNTRANS [id number] SMOOTH QUINTANA DO 05/21/18 2214 interface
--- NOTE | ~2018-05-15 | DS ---
[place], [place] DISCHARGE SUMMARY NAME: [facility]DEZ [id number] UNIT #: [id number] ROOM: 426 DOCTOR: FRANCO CAPUTO MD BIRTHDATE: [birth year] DOS: 05/22/2018 DIAGNOSES: 1. Osteomyelitis of the second toe, right foot with bony destruction seen on the MRI. 2. Possible metacarpal fracture, fifth nondisplaced, left hand. 3. Acute kidney injury, resolved. 4. Hypoxia and hypercapnic respiratory failure from medications is resolved. 5. Chronic obstructive pulmonary disease. 6. Chronic prednisone usage. 7. Osteopenia. Bone density to be done as an outpatient. Fosamax was given one dose. The patient tolerated. 8. Type 2 diabetes mellitus, insulin-dependent, poorly controlled. 9. Benign hypertension with LVH. CONSULTANTS: Dr. Juarez, Dr. Stern, Dr. Krueger and Dr. Robles. HOSPITAL COURSE: The patient is 48 years old, very well known to us, comes in with complaints of swelling and redness of the right foot as well as left hand. The patient did not complain of any recent injury, but she did have near fall and hurt her right leg and is possible that she may have hurt her left hand also and did not know about it. She came to the Emergency Room. X-rays showed a possibility of a fifth metacarpal fracture. Consultation with Ortho was obtained. The patient's right wrist appeared to be quite swollen and tender. Possibility of acute gouty arthropathy was raised. The patient was given Indocin for 2 days and Luis A wrap was ordered for the hand. The swelling and redness have subsided. Uric acid level was normal, so I discontinued Indocin and allopurinol was never started. The patient did develop acute kidney injury and IV fluids were ordered. This has finally improved. The patient had an MRI of the right foot and a triphasic bone scan and showed osteomyelitis of the second toe, right foot. The patient is ordered IV vancomycin and Zosyn. With a question of a septic joint of the left hand, so Infectious Disease was consulted. By then, the left hand appeared pretty well without any evidence of redness and swelling and the joint movement was within normal limits. Septic joint was no longer a possibility, but Dr. Stern did recommend that she have a bone biopsy and hold the antibiotics. The patient declined the bone biopsy and so the IV vancomycin is to be continued for 6 weeks. Initially, there were plans to send her to a rehab, but the patient is wanting to go home with visiting nurses, so arrangements are being made for that. Her blood sugars fairly controlled in the low 100s. Occasionally, she has had few 300s, most likely from dietary indiscretion as well as long-term prednisone usage. The patient is stable at this morning. Plan is to discharge her to home. She did have an episode where she became increasingly somnolent and developed hypercapnic respiratory failure, was ordered BiPAP 24 hours and the discontinuation of pain medications and Ambien. She is much more awake and [place], [place] DISCHARGE SUMMARY NAME: TOD HERNANDEZ UNIT #: [id number] ROOM: 426 DOCTOR: FRANCO CAPUTO MD BIRTHDATE: [birth year] alert. She is advised to take Tylenol in the future for pain control. White cell count has normalized. The kidney functions are normal. Follow up with [facility] Visiting Nurses. DISCHARGE MEDICATIONS: Vancomycin 1 gram IV q. 12 for 6 weeks followed by Infectious Disease, diclofenac for local application to the left hand, lisinopril 10 daily, the dosage was reduced, calcium 500 b.i.d., Paxil 30 daily, Ventolin 2 puffs q. 6 p.r.n., oxygen 1 liter per minute nasal cannula, diltiazem 240 daily, insulin pump, Lyrica 100 b.i.d., breathing treatments DuoNeb q. 4, melatonin 10 daily, Xanax 0.5 t.i.d., Zofran 4 mg q. 4 p.r.n., Tylenol 650 q. 6 p.r.n., prednisone 30 daily, Daliresp 500 mcg daily, Pepcid 40 daily, Lumigan eye drops to each eye at bedtime, Januvia 100 daily, cholestyramine 4 grams daily, Fioricet 1 tablet daily p.r.n. for migraine and Xarelto 15 b.i.d. FRANCO CAPUTO MD CM:SARAH [id number] FRANCO CAPUTO MD 05/22/18 1820 interface
--- NOTE | ~2018-05-15 | CON ---
[place], [place] REPORT OF CONSULTATION NAME: TOD HERNANDEZ UNIT #: [id number] ROOM: 426 DOCTOR: MAGGIE ROBLES MD BIRTHDATE: [birth year] DOS: 05/20/2018 INPATIENT CONSULT NOTE CHIEF COMPLAINT: Left wrist pain. HISTORY OF PRESENT ILLNESS: This is a pleasant 48-year-old female with multiple medical comorbidities, who presents with left wrist pain. No specific trauma that she can recall. She has been on IV antibiotics. She thinks that the pain is improving. She is not in any kind of immobilization. During the interview, she moves her hand all around including adjusting the CPAP machine and is noted to be using her left wrist quite adroitly without limit. Of note, she also does have drainage from the right foot, but the general surgeon is taking care of this. The patient has significant list of medical comorbidities including CPAP, type 2 insulin-dependent diabetes mellitus, peripheral neuropathy, major depression, chronic kidney disease stage 3 and COPD. PAST MEDICAL AND SURGICAL HISTORY: 1. Major depression. 2. Chronic kidney disease stage 3. 3. Peripheral neuropathy. 4. Type 2 diabetes mellitus, insulin-dependent with poor control. 5. History of deep vein thrombosis. 6. Benign hypertension. 7. COPD. SOCIAL HISTORY: No tobacco use, no alcohol use. REVIEW OF SYSTEMS: A 10-point review of systems is conducted and is negative except for pertinent positives listed in the history of present illness. PHYSICAL EXAMINATION: GENERAL APPEARANCE: Reasonably well. She is wearing the CPAP machine. She is in no acute distress. EXTREMITIES: I examined the left upper extremity. I noted that she is using the left wrist quite adroitly in bed. She is adjusting her CPAP machine, facemask using the left wrist without limitations. I examined the forearm and wrist. All compartments are soft. She has a palpable radial pulse. She can dorsiflex the wrist to about 25 degrees. She can volar flex the wrist about 30 degrees. Within this arc of motion, she has no pain. There is minimal erythema in the forearm and wrist. The skin is intact. She feels light touch sensation throughout the fingers. She can make a full fist. No wounds were noted in the forearm or hand. I did not examine the foot as she is under the care of the general surgeon for her foot. He has already dictated the consult not on this. I reviewed CT of the left forearm, bone scan, and wrist x-ray. There is a [place], [place] REPORT OF CONSULTATION NAME: TOD HERNANDEZ UNIT #: [id number] ROOM: 426 DOCTOR: MAGGIE ROBLES MD BIRTHDATE: [birth year] possible fifth metacarpal fracture. There are soft tissue changes consistent with cellulitis. No abscess. No dislocation. No displaced fracture is seen. ASSESSMENT: A 48-year-old female left wrist resolving cellulitis and possible fifth metacarpal fracture. This is not a compartment syndrome. All compartments in the hand and forearm are soft. This is not a septic joint. She has two good range of motion, active and passive of the wrist joint appeared to be a septic joint. No intra-articular injection or aspiration of the wrist joint indicated. This looks to be like mild cellulitis that is resolving. No surgical indication for this. Regarding the fifth metacarpal fracture, she is point tender, I can see the fracture on some images that are noted. Therefore, she is going to be treated with a removable wrist brace and serial x-rays. She is to follow up in the Orthopedic Clinic in 2 weeks for repeat x-ray evaluation. I have not examined the foot as she is under the care of the general surgeon for this problem. Please see his note for details. I am leaving [place] on 05/22/2018 and I am not available for any [id number] consults thereafter. Dr. Dominguez will not return until 05/27/2018 as far as I know. Please do not hesitate to contact me with any questions or concerns you may have. Maggie Robles MD CM:CONSTR:REPORT OF CONSULTATION 7 05/20/18 3079 interface
[~2018-05-15 20:38] MED LIST changes: -PRINIVIL10 MG PO
[2018-05-15 20:41] VITALS: BP 134/62
[2018-05-15 21:39] LABS: BASO % 0.1 % (0.0-1.0); EOS % 0.1 % (1.0-4.0); HEMATOCRIT 32.2 % (37.0-47.0); HEMOGLOBIN 9.6 g/dl (12.0-16.0); LYMPH # 1.2 10*3/uL (1.3-4.4); LYMPH % 5.6 % (27.0-41.0); MEAN CELL VOLUME 94.4 fl (81.0-99.0); MEAN CORPUSCULAR HGB 28.2 pg (27.0-31.0); MEAN CORPUSCULAR HGB CONC 29.8 g/dl (33.0-37.0); MEAN PLATELET VOLUME 10.1 fl (9.6-12.3); MONO # 1.5 10*3/uL (0.1-1.0); MONO % 6.8 % (3.0-9.0); NEUT # 18.8 10*3/uL (2.3-7.9); PLATELET COUNT AUTOMATED 247 10*3/uL (130-400); RED BLOOD COUNT 3.41 10*6/uL (4.10-5.10); RED CELL DISTRI WIDTH 15.7 % (0-14.5); WHITE BLOOD COUNT 21.8 10*3/uL (4.8-10.8)
[2018-05-15 21:57] LABS: ALBUMIN 2.8 gm/dl (3.1-4.5); CREATININE 1.41 mg/dL (0.55-1.02); POTASSIUM 4.4 mmol/L (3.5-5.1); TOTAL PROTEIN 6.3 gm/dL (6.4-8.2)
[2018-05-15 21:58] VITALS: BP 134/62
[2018-05-15 23:06] VITALS: BP 139/67
[2018-05-16 00:21] VITALS: BP 142/64
[2018-05-16 08:00] VITALS: BP 142/64
[2018-05-16 12:00] VITALS: BP 132/60
[2018-05-16 16:00] VITALS: BP 132/54
[2018-05-16 20:00] VITALS: BP 126/49
[2018-05-17] VITALS: BP 118/61
[2018-05-17 08:00] VITALS: BP 125/54
[2018-05-17 12:00] VITALS: BP 127/52
[2018-05-17 13:23] LABS: BASO % 0.2 % (0.0-1.0); EOS # 0.1 10*3/uL (0.0-0.4); EOS % 0.5 % (1.0-4.0); HEMATOCRIT 32.1 % (37.0-47.0); HEMOGLOBIN 9.3 g/dl (12.0-16.0); LYMPH # 1.5 10*3/uL (1.3-4.4); MEAN CORPUSCULAR HGB 27.5 pg (27.0-31.0); MEAN PLATELET VOLUME 10.3 fl (9.6-12.3); MONO # 0.6 10*3/uL (0.1-1.0); MONO % 5.6 % (3.0-9.0); NEUT # 8.6 10*3/uL (2.3-7.9); NEUT % 77.9 % (47.0-73.0); PLATELET COUNT AUTOMATED 247 10*3/uL (130-400); RED BLOOD COUNT 3.38 10*6/uL (4.10-5.10); RED CELL DISTRI WIDTH 15.8 % (0-14.5)
[2018-05-17 13:35] LABS: BUN 23 mg/dl (7-24); CHLORIDE 105 mmol/L (98-107); CREATININE 1.15 mg/dL (0.55-1.02); POTASSIUM 4.6 mmol/L (3.5-5.1); SODIUM 139 mmol/L (136-145)
[2018-05-17 16:00] VITALS: BP 141/42
[2018-05-17 17:36] VITALS: BP 120/58
[2018-05-17 20:00] VITALS: BP 139/62
[2018-05-18] VITALS: BP 125/68
[2018-05-18 06:51] LABS: BASO % 0.3 % (0.0-1.0); EOS # 0.1 10*3/uL (0.0-0.4); EOS % 0.5 % (1.0-4.0); HEMATOCRIT 31.9 % (37.0-47.0); HEMOGLOBIN 9.2 g/dl (12.0-16.0); LYMPH # 3.1 10*3/uL (1.3-4.4); LYMPH % 27.4 % (27.0-41.0); MEAN CELL VOLUME 95.5 fl (81.0-99.0); MEAN CORPUSCULAR HGB 27.5 pg (27.0-31.0); MEAN CORPUSCULAR HGB CONC 28.8 g/dl (33.0-37.0); MEAN PLATELET VOLUME 10.9 fl (9.6-12.3); MONO # 0.8 10*3/uL (0.1-1.0); MONO % 7.1 % (3.0-9.0); NEUT # 7.2 10*3/uL (2.3-7.9); NEUT % 62.7 % (47.0-73.0); NUCLEATED RED BLOOD CELL 0.3 % (0.0-0.0); PLATELET COUNT AUTOMATED 307 10*3/uL (130-400); RED BLOOD COUNT 3.34 10*6/uL (4.10-5.10); RED CELL DISTRI WIDTH 15.7 % (0-14.5); WHITE BLOOD COUNT 11.4 10*3/uL (4.8-10.8)
[2018-05-18 07:12] LABS: CREATININE 1.2 mg/dL (0.55-1.02); POTASSIUM 4.2 mmol/L (3.5-5.1)
[2018-05-18 08:00] VITALS: BP 118/60
[2018-05-18 12:00] VITALS: BP 142/70
[2018-05-18 16:00] VITALS: BP 133/65
[2018-05-18 20:00] VITALS: BP 140/60
[2018-05-19] VITALS: BP 126/67
[2018-05-19 05:59] LABS: HEMATOCRIT 32.3 % (37.0-47.0); HEMOGLOBIN 9.2 g/dl (12.0-16.0); MEAN CELL VOLUME 96.7 fl (81.0-99.0); MEAN CORPUSCULAR HGB 27.5 pg (27.0-31.0); MEAN CORPUSCULAR HGB CONC 28.5 g/dl (33.0-37.0); MEAN PLATELET VOLUME 10.7 fl (9.6-12.3); NUCLEATED RED BLOOD CELL 0.2 % (0.0-0.0); PLATELET COUNT AUTOMATED 364 10*3/uL (130-400); RED BLOOD COUNT 3.34 10*6/uL (4.10-5.10); RED CELL DISTRI WIDTH 15.8 % (0-14.5); WHITE BLOOD COUNT 13.2 10*3/uL (4.8-10.8)
[2018-05-19 06:14] LABS: CREATININE 1.28 mg/dL (0.55-1.02); POTASSIUM 5.1 mmol/L (3.5-5.1)
[2018-05-19 06:43] LABS: PLATELET SUFFICIENCY NORMAL (NORMAL); TOTAL CELLS COUNTED 100 #CELLS
[2018-05-19 06:44] LABS: POLYCHROMASIA SLIGHT
[2018-05-19 08:00] VITALS: BP 146/58
[2018-05-19 12:00] VITALS: BP 142/72
[2018-05-19 12:43] LABS: ABG BASE EXCESS -2.1 mmol/L (-2.0-2.0); ABG HCO3 23.8 mmol/l (22-26); ABG O2 SATURATION 98.1 % (95-97); ARTERIAL BLOOD GAS PCO2 47.9 mmHg (35-45); ARTERIAL BLOOD GAS PH 7.313 (7.35-7.45)
[2018-05-19 16:00] VITALS: BP 147/85
[2018-05-19 17:05] LABS: ABG BASE EXCESS -2.8 mmol/L (-2.0-2.0); ABG HCO3 23.1 mmol/l (22-26); ABG O2 SATURATION 98.5 % (95-97); ARTERIAL BLOOD GAS PCO2 48.6 mmHg (35-45); ARTERIAL BLOOD GAS PH 7.298 (7.35-7.45)
[2018-05-19 20:00] VITALS: BP 154/67
[2018-05-20] VITALS: BP 141/49
[2018-05-20 07:10] LABS: ABG BASE EXCESS 0.1 mmol/L (-2.0-2.0); ABG HCO3 25.4 mmol/l (22-26); ABG O2 SATURATION 97.4 % (95-97); ARTERIAL BLOOD GAS PCO2 46.4 mmHg (35-45); ARTERIAL BLOOD GAS PH 7.355 (7.35-7.45); ARTERIAL BLOOD GAS PO2 90.7 mmHg (80-90)
[2018-05-20 08:00] VITALS: BP 138/82
[2018-05-20 12:00] VITALS: BP 136/58
[2018-05-20 16:00] VITALS: BP 157/50
[2018-05-20 20:00] VITALS: BP 138/65
[2018-05-21] VITALS: BP 142/73
[2018-05-21 06:01] LABS: BASO % 0.2 % (0.0-1.0); EOS # 0.1 10*3/uL (0.0-0.4); HEMATOCRIT 29.2 % (37.0-47.0); HEMOGLOBIN 8.4 g/dl (12.0-16.0); LYMPH # 2.9 10*3/uL (1.3-4.4); LYMPH % 33.2 % (27.0-41.0); MEAN CELL VOLUME 94.8 fl (81.0-99.0); MEAN CORPUSCULAR HGB 27.3 pg (27.0-31.0); MEAN CORPUSCULAR HGB CONC 28.8 g/dl (33.0-37.0); MEAN PLATELET VOLUME 10.3 fl (9.6-12.3); MONO # 0.7 10*3/uL (0.1-1.0); MONO % 7.6 % (3.0-9.0); NEUT # 4.9 10*3/uL (2.3-7.9); NEUT % 55.1 % (47.0-73.0); PLATELET COUNT AUTOMATED 287 10*3/uL (130-400); RED BLOOD COUNT 3.08 10*6/uL (4.10-5.10); RED CELL DISTRI WIDTH 15.9 % (0-14.5); WHITE BLOOD COUNT 8.8 10*3/uL (4.8-10.8)
[2018-05-21 06:20] LABS: ALBUMIN 2.4 gm/dl (3.1-4.5); BUN 26 mg/dl (7-24); CHLORIDE 110 mmol/L (98-107); CREATININE 0.86 mg/dL (0.55-1.02); POTASSIUM 3.7 mmol/L (3.5-5.1); SGPT/ALT 13 U/L (12-78); SODIUM 146 mmol/L (136-145)
[2018-05-21 06:21] LABS: ALKALINE PHOSPHATASE 71 U/L (45-117); SGOT/AST < 3 IU/L (3-35); TOTAL PROTEIN 5.7 gm/dL (6.4-8.2)
[2018-05-21 08:00] VITALS: BP 155/70
[2018-05-21 12:00] VITALS: BP 152/54
[2018-05-21 16:00] VITALS: BP 134/67
[2018-05-21 20:00] VITALS: BP 147/70
[2018-05-22] VITALS: BP 147/92
[2018-05-22 08:00] VITALS: BP 124/50
[2018-05-22] MEDS ORDERED: PRINIVIL10 MG PO (08:30)
[2018-05-22] MEDS ORDERED: VOLTAREN100 GM T (08:30)
[2018-05-22 12:00] VITALS: BP 138/65
== END 2018-05-22 16:00 | disposition home health service (06) | DRG 637 ==
LOC: ED 20:38 → 4E 23:40
PROVIDERS: Internal Medicine; Internal Medicine Critical Care Medicine; Physician Assistant
PROC: 5A09357 Assistance with Respiratory Ventilation, Less than 24 Consecutive Hours, Continuous Positive Airway Pressure (ICD-10-PCS; principal; 2018-05-19)
PROC: 5A09357 Assistance with Respiratory Ventilation, Less than 24 Consecutive Hours, Continuous Positive Airway Pressure (ICD-10-PCS; 2018-05-21)
PROC: 5A09357 Assistance with Respiratory Ventilation, Less than 24 Consecutive Hours, Continuous Positive Airway Pressure (ICD-10-PCS; 2018-05-22)
DX: E11.69 Type 2 diabetes mellitus with other specified complication (principal); R65.11 Systemic inflammatory response syndrome (SIRS) of non-infectious origin with acute organ dysfunction; J96.21 Acute and chronic respiratory failure with hypoxia; J96.22 Acute and chronic respiratory failure with hypercapnia; E43 Unspecified severe protein-calorie malnutrition; L03.115 Cellulitis of right lower limb; M86.171 Other acute osteomyelitis, right ankle and foot; E87.2 Acidosis; L03.114 Cellulitis of left upper limb; Z68.42 Body mass index [BMI] 45.0-49.9, adult; L03.116 Cellulitis of left lower limb; N17.9 Acute kidney failure, unspecified; J44.9 Chronic obstructive pulmonary disease, unspecified; E11.65 Type 2 diabetes mellitus with hyperglycemia; M85.80 Other specified disorders of bone density and structure, unspecified site; G89.29 Other chronic pain; E11.42 Type 2 diabetes mellitus with diabetic polyneuropathy; N18.3 Chronic kidney disease, stage 3 (moderate); F32.9 Major depressive disorder, single episode, unspecified; E11.22 Type 2 diabetes mellitus with diabetic chronic kidney disease; I12.9 Hypertensive chronic kidney disease with stage 1 through stage 4 chronic kidney disease, or unspecified chronic kidney disease; G47.33 Obstructive sleep apnea (adult) (pediatric); J45.909 Unspecified asthma, uncomplicated; K21.9 Gastro-esophageal reflux disease without esophagitis; F41.1 Generalized anxiety disorder; E66.01 Morbid (severe) obesity due to excess calories; L03.031 Cellulitis of right toe; L89.899 Pressure ulcer of other site, unspecified stage; L89.619 Pressure ulcer of right heel, unspecified stage; L89.629 Pressure ulcer of left heel, unspecified stage; D72.829 Elevated white blood cell count, unspecified; M25.775 Osteophyte, left foot; S62.307A Unspecified fracture of fifth metacarpal bone, left hand, initial encounter for closed fracture; J45.50 Severe persistent asthma, uncomplicated; W18.39XA Other fall on same level, initial encounter; E11.622 Type 2 diabetes mellitus with other skin ulcer; R62.7 Adult failure to thrive; M10.042 Idiopathic gout, left hand; Z79.51 Long term (current) use of inhaled steroids; Z88.8 Allergy status to other drugs, medicaments and biological substances; Z88.6 Allergy status to analgesic agent; Z88.2 Allergy status to sulfonamides; Z79.899 Other long term (current) drug therapy; Z79.4 Long term (current) use of insulin; Z87.01 Personal history of pneumonia (recurrent); Z82.5 Family history of asthma and other chronic lower respiratory diseases; Z80.3 Family history of malignant neoplasm of breast; Z80.0 Family history of malignant neoplasm of digestive organs; Z82.49 Family history of ischemic heart disease and other diseases of the circulatory system; Z86.718 Personal history of other venous thrombosis and embolism; Z79.01 Long term (current) use of anticoagulants; Z22.322 Carrier or suspected carrier of Methicillin resistant Staphylococcus aureus; Z87.440 Personal history of urinary (tract) infections; Y93.89 Activity, other specified; Y92.89 Other specified places as the place of occurrence of the external cause; Y99.8 Other external cause status

== ENCOUNTER → 2018-05-29 | Outpatient (CLI) | payer BC ==
[~2018-05-29] MED LIST changes: +PRINIVIL10 MG PO
== END | disposition home or self-care (01) ==
LOC: LAB 04:42 → ORTHO 04:42
DX: S62.357D Nondisplaced fracture of shaft of fifth metacarpal bone, left hand, subsequent encounter for fracture with routine healing (principal); Z79.899 Other long term (current) drug therapy; X58.XXXD Exposure to other specified factors, subsequent encounter

== ENCOUNTER 2018-06-01 14:53 | Emergency (ER) | payer BC ==
[~2018-06-01] VITALS: Ht 157.4 cm; Wt 131.5 kg
[2018-06-01 14:55] VITALS: BP 142/61
== END 2018-06-01 15:23 | disposition home or self-care (01) ==
LOC: ED 14:53
DX: T85.618A Breakdown (mechanical) of other specified internal prosthetic devices, implants and grafts, initial encounter (principal); Z88.1 Allergy status to other antibiotic agents; Z88.8 Allergy status to other drugs, medicaments and biological substances; Z88.6 Allergy status to analgesic agent; Z79.899 Other long term (current) drug therapy

== ENCOUNTER → 2018-06-05 | Outpatient (CLI) | payer BC ==
[2018-06-05 12:56] LABS: BASO % 0.3 % (0.0-1.0); EOS # 0.1 10*3/uL (0.0-0.4); EOS % 0.5 % (1.0-4.0); HEMATOCRIT 30.5 % (37.0-47.0); HEMOGLOBIN 8.7 g/dl (12.0-16.0); LYMPH # 2.5 10*3/uL (1.3-4.4); LYMPH % 25.4 % (27.0-41.0); MEAN CELL VOLUME 95.3 fl (81.0-99.0); MEAN CORPUSCULAR HGB 27.2 pg (27.0-31.0); MEAN CORPUSCULAR HGB CONC 28.5 g/dl (33.0-37.0); MEAN PLATELET VOLUME 10.2 fl (9.6-12.3); MONO # 0.6 10*3/uL (0.1-1.0); MONO % 5.9 % (3.0-9.0); NEUT # 6.6 10*3/uL (2.3-7.9); NUCLEATED RED BLOOD CELL 0.3 % (0.0-0.0); PLATELET COUNT AUTOMATED 313 10*3/uL (130-400); RED CELL DISTRI WIDTH 15.8 % (0-14.5); WHITE BLOOD COUNT 9.9 10*3/uL (4.8-10.8)
[2018-06-05 13:33] LABS: ALBUMIN 2.7 gm/dl (3.1-4.5); BUN 15 mg/dl (7-24); CHLORIDE 108 mmol/L (98-107); CREATININE 1.12 mg/dL (0.55-1.02); SGOT/AST 7 IU/L (3-35); SGPT/ALT 12 U/L (12-78); SODIUM 144 mmol/L (136-145); TOTAL PROTEIN 5.9 gm/dL (6.4-8.2)
[2018-06-05 13:34] LABS: ALKALINE PHOSPHATASE 76 U/L (45-117); VANCOMYCIN TROUGH 12.4 ug/mL (10-20)
== END | disposition home or self-care (01) ==
LOC: LAB 12:31
PROVIDERS: Internal Medicine
DX: M86.171 Other acute osteomyelitis, right ankle and foot (principal)

== ENCOUNTER → 2018-06-19 | Outpatient (CLI) | payer BC ==
[2018-06-19 13:19] LABS: HEMATOCRIT 33.9 % (37.0-47.0); MEAN CELL VOLUME 91.4 fl (81.0-99.0); MEAN CORPUSCULAR HGB CONC 29.5 g/dl (33.0-37.0); MEAN PLATELET VOLUME 10.5 fl (9.6-12.3); NUCLEATED RED BLOOD CELL 0.1 10*3/uL (0.0-0.0); NUCLEATED RED BLOOD CELL 0.5 % (0.0-0.0); PLATELET COUNT AUTOMATED 361 10*3/uL (130-400); RED BLOOD COUNT 3.71 10*6/uL (4.10-5.10); RED CELL DISTRI WIDTH 15.2 % (0-14.5)
[2018-06-19 13:38] LABS: TOTAL CELLS COUNTED 100 #CELLS
[2018-06-19 13:39] LABS: PLATELET SUFFICIENCY NORMAL (NORMAL); POLYCHROMASIA SLIGHT
[2018-06-19 13:48] LABS: ALBUMIN 2.8 gm/dl (3.1-4.5); CREATININE 1.18 mg/dL (0.55-1.02); POTASSIUM 3.8 mmol/L (3.5-5.1); TOTAL PROTEIN 6.3 gm/dL (6.4-8.2); VANCOMYCIN TROUGH 10.1 ug/mL (10-20)
[2018-06-19 13:55] LABS: INTERNATIONAL NORM RATIO 0.9 (2.0-3.5)
== END | disposition home or self-care (01) ==
LOC: MEDIPORT 10:30 → LAB 12:36
PROVIDERS: Internal Medicine
DX: M86.171 Other acute osteomyelitis, right ankle and foot (principal)

== ENCOUNTER → 2018-06-26 | Outpatient (CLI) | payer BC | END | disposition home or self-care (01) | LOC: MEDIPORT 00:56 | DX: Z45.2 Encounter for adjustment and management of vascular access device (principal) ==

== ENCOUNTER → 2018-07-03 | Outpatient (CLI) | payer BC | LOC: MEDIPORT 13:00 | DX: Z45.2 Encounter for adjustment and management of vascular access device (principal) ==

== ENCOUNTER 2018-07-08 16:28 | Emergency (ER) | payer BC ==
[~2018-07-08] VITALS: Ht 157.4 cm; Wt 1301.8 kg
[2018-07-08 17:18] VITALS: BP 128/61
[2018-07-08 17:21] LABS: BASO % 0.1 % (0.0-1.0); HEMATOCRIT 30.3 % (37.0-47.0); HEMOGLOBIN 8.6 g/dl (12.0-16.0); LYMPH # 1.1 10*3/uL (1.3-4.4); MEAN CELL VOLUME 89.4 fl (81.0-99.0); MEAN CORPUSCULAR HGB 25.4 pg (27.0-31.0); MEAN CORPUSCULAR HGB CONC 28.4 g/dl (33.0-37.0); MEAN PLATELET VOLUME 9.3 fl (9.6-12.3); MONO # 0.2 10*3/uL (0.1-1.0); MONO % 1.7 % (3.0-9.0); NEUT # 11.6 10*3/uL (2.3-7.9); PLATELET COUNT AUTOMATED 255 10*3/uL (130-400); RED BLOOD COUNT 3.39 10*6/uL (4.10-5.10); RED CELL DISTRI WIDTH 16.3 % (0-14.5); WHITE BLOOD COUNT 13.1 10*3/uL (4.8-10.8)
[2018-07-08 17:35] LABS: ALBUMIN 2.4 gm/dl (3.1-4.5); ALKALINE PHOSPHATASE 75 U/L (45-117); BUN 16 mg/dl (7-24); CHLORIDE 102 mmol/L (98-107); CREATININE 0.96 mg/dL (0.55-1.02); POTASSIUM 3.8 mmol/L (3.5-5.1); SGOT/AST 9 IU/L (3-35); SGPT/ALT 13 U/L (12-78); SODIUM 138 mmol/L (136-145); TOTAL PROTEIN 6.3 gm/dL (6.4-8.2)
== END 2018-07-08 19:00 | disposition home or self-care (01) ==
LOC: ED 16:28
PROVIDERS: Nurse Practitioner Family
DX: M79.661 Pain in right lower leg (principal); M79.662 Pain in left lower leg; R60.0 Localized edema; Z86.718 Personal history of other venous thrombosis and embolism; Z88.8 Allergy status to other drugs, medicaments and biological substances; Z88.2 Allergy status to sulfonamides; Z88.5 Allergy status to narcotic agent; Z79.899 Other long term (current) drug therapy

== ENCOUNTER 2018-07-10 05:56 | Emergency (ER) | payer BC ==
[2018-07-10] VITALS (18 sets, daily range): BP systolic 50–213; BP diastolic 00–172
[~2018-07-10] VITALS: Ht 152.4 cm; Wt 113.4 kg
--- NOTE | ~2018-07-10 | EKG ---
[place], [place] ELECTROCARDIOGRAM REPORT NAME: TOD HERNANDEZ UNIT #: [id number] ROOM: DOCTOR: EPIPHANY DRAFT REPORT BIRTHDATE: [birth year] [facility] Test Date: 2018-07-10 Test Time: 06:11:45 Pat Name: TOD HERNANDEZ Department: Room: [facility] Gender: F Clinical Faculty: SHERIDAN : 1970 Requested By: PHILLY GUERRERO Order Number: [id number] Reading MD: Serge Juarez MD Measurements Intervals [place] Rate: 158 P: TX: QRS: 11 QRSD: 77 T: -42 QT: 300 QTc: 487 Interpretive Statements Atrial flutter with predominant 2:1 AV block Ventricular premature complex Low voltage, precordial leads Borderline ST depression, anterolateral leads Borderline prolonged QT interval Baseline wander in lead(s) III,V1 Electronically Signed On 07-19-2018 8:15:43 PST by Serge Juarez MD CM:EKGRPT:ELECTROCARDIOGRAM REPORT 0 [id number] PHILLY GUERRERO MD EPIPHANY DRAFT REPORT PHILLY GUERRERO MD
--- NOTE | ~2018-07-10 | CON ---
[place], [place] REPORT OF CONSULTATION NAME: TOD HERNANDEZ UNIT #: [id number] ROOM: DOCTOR: RONI BURTON MD,JESSICA BIRTHDATE: [birth year] DOS: 07/10/2018 PULMONARY CRITICAL CARE, EVALUATION, MANAGEMENT, AND CONSULTATION CONSULTATION REQUESTED BY: Dr. Eulalia Tanner. REASON FOR CONSULTATION: The patient with current acute respiratory failure with ventilatory support and hypertension. HISTORY OF PRESENT ILLNESS: History could not be obtained from the medical record. All the history is contained document with medical record, which was done in the Emergency by the ER nurse, my past documentation review and speaking with Dr. Tanner. The patient was brought to the hospital Emergency Room at 5:56 a.m. The patient was brought to the hospital by the private car. The patient noted with unresponsive this morning. She has been reported symptoms of shortness of breath. She has been reported ongoing symptoms of nausea and vomiting. The patient has a history of insulin pump, which has been going on for the patient this morning as well reported by the family members. The patient arrived to the Emergency Room. She was noted significant respiratory distress using accessory muscles of respiration and oxygen saturation was noted as 85% marking of the skin and evidence of cyanosis. Regarding unresponsiveness, the patient has severe respiratory failure. The patient was initially tried on the BiPAP, which was not noted effective. She has been intubated and started on mechanical ventilation as the patient was assessed by Dr. Tanner. The initial assessment was done for the patient and the management, started by Dr. Vega. The patient status is deteriorated. The patient with difficulty of obtaining oxygen saturation from the fingers. She has been noted with cold, clammy skin. The oxygen saturation was obtained noted as 98% saturation, 100% oxygen supplementation assist control, volume control of mechanical ventilation. I did review the x-ray with initial x-ray was noted with some area of possible atelectasis, small infiltration in the right, atelectasis in left lower lobe versus heart border, giving a false appearance. The film was rotated. Small infiltration was appreciated in the right upper lobe. There was no major area of infiltration noted finding congestive heart failure or pleural fluids. The patient was noted severe hypotension with systolic blood pressure of 40. She has been already administered about 3 liters of intravenous fluid. The fourth liter of intravenous fluid was ongoing. She has been noted with some urinary output, which appeared to be dark and yellow. The patient has been currently noted unresponsive. She has been noted with some spontaneous movement of the body. There were no findings of seizures. Mechanical ventilation was assessed at the bedside. REVIEW OF SYSTEMS: Certainly could not be completed since the patient is currently intubated. The patient is nonresponsive. PAST MEDICAL HISTORY: 1. Known with last hospitalization in this hospital as the patient was treated at that time for the medical management of [id number] hypercapnic and [place], [place] REPORT OF CONSULTATION NAME: TOD HERNANDEZ UNIT #: [id number] ROOM: DOCTOR: RONI BURTON MD,[facility] BIRTHDATE: [birth year] hypoxic respiratory failure. 2. The patient noted longstanding uncomplicated severe persistent bronchial asthma. 3. History of insulin requiring type 2 diabetes mellitus. 4. History of obstructive sleep apnea disorder, currently treated with CPAP. 5. Chronic hypoxic respiratory failure, use of oxygen supplementation 2-3 liters. 6. Gastroesophageal reflux. 7. Essential hypertension. 8. Chronic moderate obesity. 9. General anxiety disorder. 10. Ovarian cyst and acute chronic cellulitis and osteomyelitis of the foot, which has been treated as well. PAST SURGICAL HISTORY: 1. Noted as ORIF and metatarsal surgery of the right foot. 2. T and A. 3. Therapeutic bronchoscopy. 4. Bilateral cataract extraction, lens amputation. 5. D and C. 6. Right wrist surgery. 5. I and D of the metatarsal bone and abscess of the foot. SOCIAL HISTORY: The patient is and lives at home. Lifetime nonsmoker. No history of alcohol use or illicit drug use. DRUG ALLERGIES: NOTED ALLERGY TO COMPAZINE, MORPHINE, BACTRIM, AND REGLAN. MEDICATIONS: From home were listed rather currently listed use of the albuterol sulfate, norepinephrine, IV propofol, vancomycin administered, IV Zosyn given and intravenous fluids. PHYSICAL EXAMINATION: GENERAL: This is a 48-year-old female patient who has been currently intubated, unresponsive, on mechanical ventilator, partially sedated as well. Height was recorded by the nursing staff as 5 feet, weight of 250 pounds, BMI was not calculated exactly. VITAL SIGNS: Vital signs, which are recorded showed the temperature noted 102.6 degree Fahrenheit, respiratory rate of 27-30, heart rate of 135 with sinus tachycardia. The blood pressure was recorded as ____ by palpation and Doppler. HEENT: Examination shows moderate obesity. NECK: Supple. The patient orally intubated. There was no evidence of subcutaneous emphysema. CARDIOVASCULAR: S1, S2 audible. LUNGS: Moderate decreased breath sounds noted without any wheeze or crackles. ABDOMEN: Soft, obese, hypoactive bowel sounds. EXTREMITIES: Noted without any edema. Chronic changes, cold, clammy extremities were noted. CENTRAL NERVOUS SYSTEM: Unable to assess at the present time because of the patient's current unresponsiveness and sedation. 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 LABORATORY DATA: Ultrasound of the Doppler, which was done previous on 07/08/2018 was noted negative for any evidence of deep venous thrombosis of bilateral lower extremities. CMP that was done this morning lab as the patient came into the hospital Emergency Room, glucose 191, BUN 60, creatinine 2.03. Sodium 133. Troponin 0.47. CBC; WBC count of 22.6, hemoglobin 9.1, hematocrit 31.7, platelet count of 213,000, a 88% segmented neutrophils. PT/PTT were noted normal. Venous blood gas was only done initially ____ O2 saturation 99.3. Arterial blood gas that was done later, pH of 7.20, pCO2 of 44, pO2 of 112 with 100% oxygen supplementation, assist control mode mechanical ventilation, tidal volume of 550 mL, PEEP of 5 with a respiratory rate of 12. The chest x-ray reviewed before and after intubation noted with small patchy infiltration, questionable area of atelectasis in the left lower lobe versus heart border touching the inner portion of the thoracic cage given a false appearance for the patient with pericardial fat as infiltration. Film was also rotated towards the right side for this patient accentuating the current finding. IMPRESSION: 1. Severe hypotension and shock status with hypovolemia with cardiogenic shock remains in consideration. At this time, hypovolemia to be considered more likely. The patient was also considered possibility of acute sepsis at this time with septic shock remain in consideration. The possible source could be considered as a lung has right upper lobe infiltration. 2. Chronic obesity with history of longstanding diabetes mellitus. 3. Obstructive sleep apnea disorder. 4. History of chronic hypoxic respiratory failure as well. PLAN OF MANAGEMENT: Ventilator adjustment done at the bedside. Repeat arterial blood gas will be done post-adjustment in mechanical ventilation about an hour or 2. The oxygen supplementation will be decreased gradually. The patient will be recommended about transfer to another facility for further complex workup, which included cardiac assessment as well, if this proven to be a cardiogenic shock. At this time, the patient will be continued on the empiric antibiotic therapy at this time. Monitor cultures of the blood and others. The assessment and management has been discussed with Dr. Tanner, who will make arrangement for the patient transferred to another facility for further appropriate care needed. Prognosis at this time is critical. Total time in pulmonary critical care evaluation and management for the patient was 38 minutes. [place], [place] REPORT OF CONSULTATION NAME: TOD HERNANDEZ UNIT #: [id number] ROOM: DOCTOR: JESSICA GOLDBERG MD BIRTHDATE: [birth year] JESSICA TAMAYO MD CM:CONSTR:REPORT OF CONSULTATION 1331 07/10/18 2005 interface
--- NOTE | ~2018-07-10 | O ---
[place], [place] OPERATIVE NOTE NAME: TOD HERNANDEZ UNIT #: [id number] ROOM: DOCTOR: LORA HAMILTON CRNA BIRTHDATE: [birth year] DOS: 07/10/2018 DICTATED BY: Lora Menendez CRNA Called in for an emergency intubation in the Emergency Department for the patient. The patient was intubated with GlideScope #7 and #5 ET tube verified with chest x-ray, capnography and color metrics. Saturation maintained near 100%. Lora Hamilton CRNA CM:OPRECORD:OPERATIVE NOTE [id number] LORA HAMILTON CRNA 07/18/18 1718 interface
[2018-07-10 07:05] LABS: ALBUMIN 2.1 gm/dl (3.1-4.5); CREATININE 2.03 mg/dL (0.55-1.02); POTASSIUM 3.6 mmol/L (3.5-5.1)
[2018-07-10 07:07] LABS: TROPONIN I 0.478 ng/ml (<0.045)
[2018-07-10 07:08] LABS: HEMATOCRIT 31.7 % (37.0-47.0); HEMOGLOBIN 9.1 g/dl (12.0-16.0); MEAN CELL VOLUME 89.3 fl (81.0-99.0); MEAN CORPUSCULAR HGB 25.6 pg (27.0-31.0); MEAN CORPUSCULAR HGB CONC 28.7 g/dl (33.0-37.0); MEAN PLATELET VOLUME 10.9 fl (9.6-12.3); NUCLEATED RED BLOOD CELL 0.1 % (0.0-0.0); PLATELET COUNT AUTOMATED 213 10*3/uL (130-400); RED BLOOD COUNT 3.55 10*6/uL (4.10-5.10); RED CELL DISTRI WIDTH 16.6 % (0-14.5); WHITE BLOOD COUNT 22.6 10*3/uL (4.8-10.8)
[2018-07-10 07:35] LABS: BURR CELLS FEW; PLATELET SUFFICIENCY NORMAL (NORMAL); POLYCHROMASIA SLIGHT; TOTAL CELLS COUNTED 100 #CELLS
[2018-07-10 07:42] LABS: ACT PARTIAL THROMBO TIME 29.8 SECONDS (20.8-31.5); INTERNATIONAL NORM RATIO 1.2 (2.0-3.5)
[2018-07-10 07:58] LABS: VENOUS BLOOD GAS O2 SAT 99.3 % (40-85); VENOUS PH 7.252 (7.32-7.43)
[2018-07-10 08:15] LABS: BILIRUBIN 1+ (NEGATIVE); BLOOD TRACE-LYSED (NEGATIVE); CLARITY CLOUDY (CLEAR); COLOR YELLOW (YELLOW); GLUCOSE NEGATIVE (NEGATIVE); KETONE TRACE (NEGATIVE); LEUKO ESTERASE NEGATIVE (NEGATIVE); NITRITE NEGATIVE (NEGATIVE); SPECIFIC GRAVITY 1.025 (1.005-1.030)
[2018-07-10 08:38] LABS: BACTERIA 3+; WBC 0-2 wbc/hpf (0-5)
[2018-07-10 08:58] LABS: ABG HCO3 16.6 mmol/l (22-26); ABG O2 SATURATION 96.2 % (95-97); ARTERIAL BLOOD GAS PCO2 44.7 mmHg (35-45); ARTERIAL BLOOD GAS PH 7.209 (7.35-7.45)
[2018-07-10 08:59] LABS: ABG BASE EXCESS -9.7 mmol/L (-2.0-2.0)
== END 2018-07-10 12:58 | disposition short-term general hospital (02) ==
LOC: ED 05:56 → EDHOLD 08:06 → ICCU 09:04 → ED 12:58
PROVIDERS: Emergency Medicine; Emergency Medicine Emergency Medical Services
DX: A41.9 Sepsis, unspecified organism (principal); R65.21 Severe sepsis with septic shock; J96.00 Acute respiratory failure, unspecified whether with hypoxia or hypercapnia; E11.9 Type 2 diabetes mellitus without complications; I12.9 Hypertensive chronic kidney disease with stage 1 through stage 4 chronic kidney disease, or unspecified chronic kidney disease; E11.22 Type 2 diabetes mellitus with diabetic chronic kidney disease; N18.3 Chronic kidney disease, stage 3 (moderate); J44.9 Chronic obstructive pulmonary disease, unspecified; E66.01 Morbid (severe) obesity due to excess calories; E11.621 Type 2 diabetes mellitus with foot ulcer; M47.896 Other spondylosis, lumbar region; M86.9 Osteomyelitis, unspecified; Z88.8 Allergy status to other drugs, medicaments and biological substances; Z88.6 Allergy status to analgesic agent; Z79.899 Other long term (current) drug therapy